=== PATIENT | male | born 1970 | race Hispanic/Latino ===

== ENCOUNTER 2021-12-22 23:55 | Emergency (ER) | payer BC, OTHER ==
[~2021-12-22] VITALS: Ht 172.7 cm; Wt 9.2 kg
[2021-12-22 23:57] VITALS: BP 145/69
[2021-12-23 00:36] LABS: EOSINOPHILS % (AUTO) 3.7 % (0.0-8.0); HEMATOCRIT 42.1 % (42-54); LYMPHOCYTES % (AUTO) 29.1 % (21.0-51.0); MEAN CORPUSCULAR HEMOGLOBIN 28.6 pg (27.0-33.0); MEAN CORPUSCULAR VOLUME 86.6 fL (79-99); MONOCYTES % (AUTO) 9.7 % (3.0-13.0); NEUTROPHILS % (AUTO) 55.6 % (40.0-77.0); PLATELET COUNT (AUTO) 260 K/uL (130-400); RED BLOOD CELL COUNT(AUTO) 4.86 MIL/uL (4.50-6.20); RED CELL DISTRIBUTION WIDTH 13.2 % (11.0-15.5); WHITE BLOOD COUNT (AUTO) 10.7 K/uL (4.8-10.8)
[2021-12-23 01:23] LABS: CREATININE 1.1 mg/dL (0.5-1.5)
[2021-12-23 01:28] LABS: ALBUMIN 2.9 g/dL (3.5-5.0); BILIRUBIN,TOTAL 0.2 mg/dL (0.2-1.0); TOTAL PROTEIN, SERUM 6.6 g/dL (6.0-8.3)
[2021-12-23] MEDS ORDERED: ESOM20CA60 PO (01:41)
== END 2021-12-23 02:00 | disposition home or self-care (01) ==
LOC: EDH 23:55
DX: K21.9 Gastro-esophageal reflux disease without esophagitis (principal); E11.9 Type 2 diabetes mellitus without complications
CPT/HCPCS: 36415; 71045; 80053; 84484; 85025

== ENCOUNTER 2022-05-02 20:18 | Emergency (ER) | payer OTHER, BC ==
[~2022-05-02] VITALS: Ht 172.7 cm; Wt 145.1 kg
[~2022-05-02 20:18] MED LIST: ESOM20CA60 PO
[2022-05-02] MEDS ORDERED: IOHEXOL 350 MG/ML 100ML INFUS..BTL IV ONE (21:25)
[2022-05-02] MEDS ORDERED: ONDANSETRON 4MG INJ IVP ONE (21:30)
[2022-05-02] MEDS ORDERED: MORPHINE 4 MG SYG IVP ONE (21:30)
[2022-05-02] MEDS ORDERED: 0.9%NACL 1000ML 1,000 ML IV ONE (21:30)
[2022-05-02 21:38] LABS: BASOPHILS % (AUTO) 0.6 % (0.0-5.0); EOSINOPHILS % (AUTO) 1.2 % (0.0-8.0); HEMATOCRIT 46.4 % (42-54); LYMPHOCYTES % (AUTO) 16.6 % (21.0-51.0); MEAN CORPUSCULAR HGB CONC 33.8 g/dL (32.0-36.0); MEAN CORPUSCULAR VOLUME 82.9 fL (79-99); NEUTROPHILS % (AUTO) 70.8 % (40.0-77.0); PLATELET COUNT (AUTO) 256 K/uL (130-400); RED CELL DISTRIBUTION WIDTH 12.8 % (11.0-15.5); WHITE BLOOD COUNT (AUTO) 12.2 K/uL (4.8-10.8)
[2022-05-02 21:41] LABS: APPEARANCE,URINE CLEAR (CLEAR); BILIRUBIN,URINE NEGATIVE (NEGATIVE); COLOR,URINE YELLOW (YELLOW); GLUCOSE, URINE (UA) >=1000 mg/dL (NEGATIVE); KETONES,URINE NEGATIVE (NEGATIVE); LEUKOCYTE ESTERASE ,URINE NEGATIVE (NEGATIVE); NITRATE,URINE NEGATIVE (NEGATIVE); OCCULT BLOOD,URINE NEGATIVE (NEGATIVE); PROTEIN,URINE NEGATIVE (NEGATIVE); UROBILINOGEN,URINE 0.2 mg/dL (0.2-1.0)
[2022-05-02 21:57] LABS: CREATININE 1.2 mg/dL (0.5-1.5); POTASSIUM 4.9 mmol/L (3.5-5.1)
[2022-05-02 21:58] LABS: BACTERIA,URINE Rare /HPF (None Seen); RBC,URINE 0-1 /HPF (0-1); WBC,URINE 0-1 /HPF (0-1)
[2022-05-02 21:59] LABS: MUCUS,URINE Few LPF (None Seen); SQUAMOUS EPITHELIAL CELL,UR Rare /HPF (0-2)
[2022-05-02 22:04] LABS: ALBUMIN 3.2 g/dL (3.5-5.0); TOTAL PROTEIN, SERUM 7.5 g/dL (6.0-8.3)
[2022-05-02 23:00] VITALS: BP 133/71
== END 2022-05-02 23:29 | disposition home or self-care (01) ==
LOC: EDH 20:18
DX: S20.212A Contusion of left front wall of thorax, initial encounter (principal); E11.9 Type 2 diabetes mellitus without complications; Z79.899 Other long term (current) drug therapy; V49.49XA Driver injured in collision with other motor vehicles in traffic accident, initial encounter; Y93.89 Activity, other specified; Y92.413 State road as the place of occurrence of the external cause; Y99.8 Other external cause status
CPT/HCPCS: 99285; 71260; 96374; 96361; 96375; 84484; 80053; 85025; 81001; 36415; 74177; 93005; J7030; J2405; J2270; Q9967

== ENCOUNTER 2023-09-11 18:41 | Emergency (ER) | payer BC, OTHER ==
[~2023-09-11] VITALS: Ht 172.7 cm; Wt 145.1 kg
[2023-09-11 19:41] LABS: RAPID GROUP A STREP negative (NEGATIVE)
[2023-09-11 19:53] LABS: INFLUENZA TYPE A Negative For Type A (NEGATIVE); INFLUENZA TYPE B Negative For Type B (NEGATIVE)
[2023-09-11 19:55] LABS: COVID19 (SARS ANTIGEN RAPID) PRESUMPTIVE NEGATIVE (NEGATIVE)
[2023-09-11 21:06] VITALS: BP 131/50; PULSE 84; RESP 14; O2SAT 97
[2023-09-11] MEDS ORDERED: BENZ-39 PO (21:07)
[2023-09-11] MEDS ORDERED: IBUP-2077 PO (21:13)
[2023-09-11] MEDS ORDERED: LORA-868 PO (21:13)
== END 2023-09-11 21:12 | disposition home or self-care (01) ==
LOC: EDH 18:41
DX: J06.9 Acute upper respiratory infection, unspecified (principal); E11.9 Type 2 diabetes mellitus without complications; Z20.822 Contact with and (suspected) exposure to COVID-19; Z79.899 Other long term (current) drug therapy
CPT/HCPCS: 87426; 87804; 87880

== ENCOUNTER 2024-08-06 08:59 | Emergency (ER) | payer BC ==
[~2024-08-06] VITALS: Ht 172.7 cm; Wt 142.9 kg
[~2024-08-06 08:59] MED LIST changes: +BENZ-39 PO; +IBUP-2077 PO; +LORA-868 PO
[2024-08-06 10:26] LABS: BASOPHILS # (AUTO) 0.09 K/uL (0.00-0.20); BASOPHILS % (AUTO) 0.8 % (0.0-5.0); EOSINOPHILS # (AUTO) 0.14 K/uL (0.00-0.70); EOSINOPHILS % (AUTO) 1.2 % (0.0-8.0); HEMATOCRIT 45.6 % (42-54); IMMATURE GRANULOCYTE ABSOLUTE 0.08 K/uL (0-1); LYMPHOCYTES # (AUTO) 2.2 K/uL (1.0-4.8); LYMPHOCYTES % (AUTO) 18.6 % (21.0-51.0); MEAN CORPUSCULAR HEMOGLOBIN 28.4 pg (27.0-33.0); MEAN CORPUSCULAR HGB CONC 32.9 g/dL (32.0-36.0); MEAN CORPUSCULAR VOLUME 86.2 fL (79-99); MONOCYTES # (AUTO) 0.9 K/uL (0.1-1.0); MONOCYTES % (AUTO) 7.2 % (3.0-13.0); NEUTROPHILS # (AUTO) 8.6 K/uL (1.8-7.7); NEUTROPHILS % (AUTO) 71.5 % (40.0-77.0); PLATELET COUNT (AUTO) 246 K/uL (130-400); RED BLOOD CELL COUNT(AUTO) 5.29 MIL/uL (4.50-6.20); RED CELL DISTRIBUTION WIDTH 12.5 % (11.0-15.5)
[2024-08-06 10:45] LABS: CREATININE 1.4 mg/dL (0.5-1.3); POTASSIUM 5.2 mmol/L (3.5-5.1)
--- NOTE | 2024-08-06 10:54 | ERN ---
General Chief Complaint: Lower Extremity Pain/Injury Stated Complaint: BLE WEAKNESS/SWELLING Time Seen by MD: 09:01 History of Present Illness Initial Comments 54-year-old male diabetic presents for bilateral lower leg pain and tingling. Goes from the tip of the toes up to about the knees bilaterally and AST full. No neurovascular injury or compromise. No fevers chills chest pain. No swelling. He reports it is a tingling and painful discomfort. He went to his primary provider and was referred to a labor conciliator but has not yet followed up. He takes Tylenol for pain. He takes insulin and no other medications. Allergies: Coded Allergies: No Known Drug Allergies (Unverified Allergy, Unknown, 12/22/21) Home Meds Active Scripts Ibuprofen (Ibuprofen 800 mg Tab) 800 Mg Tab, 800 MG PO Q6H PRN for PAIN, #30 TAB Prov:RAMAN QUINTEROS NP 09/11/23 Loratadine/Pseudoephedrine (Claritin-D 24 Hour Tablet) 10 Mg-240 Mg Tab.er.24h, 1 EACH PO DAILY, #15 TAB Prov:RAMAN QUINTEROS NP 09/11/23 Benzonatate (Tessalon Perles) 100 Mg Cap, 200 MG PO TIDP, #30 CAP Prov:RAMAN QUINTEROS NP 09/11/23 Esomeprazole Magnesium (Nexium 24Hr) 20 Mg Capsule.dr, 20 MG PO DAILY for 30 Days, #30 CAP 2 Refills Prov:GARY DUMONT MD 12/23/21 Past Medical History Past Medical History: Diabetes-Type II Past Surgical History: None Social History Social History: ETOH, Lives with family, Other Results Laboratory and Microbiology Lab and Micro Result Laboratory Tests Test 08/06/24 10:16 White Blood Count 12.0 K/uL (4.8-10.8) H Red Blood Count 5.29 MIL/uL (4.50-6.20) Hemoglobin 15.0 g/dL (14.0-18.0) Hematocrit 45.6 % (42-54) Mean Corpuscular Volume 86.2 fL (79-99) Mean Corpuscular Hemoglobin 28.4 pg (27.0-33.0) Mean Corpuscular Hemoglobin Concent 32.9 g/dL (32.0-36.0) Red Cell Distribution Width 12.5 % (11.0-15.5) Platelet Count 246 K/uL (130-400) Mean Platelet Volume 8.8 fL (7.5-10.5) Immature Granulocyte % (Auto) 0.7 % (0-1) Neutrophils (%) (Auto) 71.5 % (40.0-77.0) Lymphocytes (%) (Auto) 18.6 % (21.0-51.0) L Monocytes (%) (Auto) 7.2 % (3.0-13.0) Eosinophils (%) (Auto) 1.2 % (0.0-8.0) Basophils (%) (Auto) 0.8 % (0.0-5.0) Neutrophils # (Auto) 8.6 K/uL (1.8-7.7) H Lymphocytes # (Auto) 2.2 K/uL (1.0-4.8) Monocytes # (Auto) 0.9 K/uL (0.1-1.0) Eosinophils # (Auto) 0.14 K/uL (0.00-0.70) Basophils # (Auto) 0.09 K/uL (0.00-0.20) Absolute Immature Granulocyte (auto 0.08 K/uL (0-1) Nucleated Red Blood Cells 0.0 % (0.0-0.19) Sodium Level 130 mmol/L (136-145) L Potassium Level 5.2 mmol/L (3.5-5.1) H Chloride Level 95 mmol/L (101-111) L Carbon Dioxide Level 33 mmol/L (21-32) H Blood Urea Nitrogen 18 mg/dL (7-18) Creatinine 1.4 mg/dL (0.5-1.3) H Glomerular Filtration Rate Calc 60 mL/min (>90) Random Glucose 421 mg/dL (70-105) *H Total Calcium 9.0 mg/dL (8.5-10.1) MDM CC: Bilateral feet pain for the last two months Historian: Patient Comorbidities: Diabetes Limitations by social determinants of health: Uninsured Vital signs are stable Vital signs remained stable Patient is neurovascularly intact There is no signs of claudication or blood loss There is no signs of back discomfort. Low suspicion for neurovascularly disease. CBC is unremarkable Chemistry shows creatinine 1.4, sodium 130, chloride 95 potassium 5.2. The glucose is 421 Patient received 10 units of subcu insulin Repeat sugar improved Likely peripheral neuropathy. We will treat with prescription for gabapentin recommend PCP follow up. MDM: Differential diagnosis: Peripheral neuropathy, CAD, other Rationale: Tests considered and ordered secondary to shared decision making include: None Previous outside records reviewed: None Risk of complication and/or morbidity or mortality of patient management: None Medications-Per medication reconciliation Need for hospitalization: Patient does not meet criteria for hospitalization. Need for emergency major/minor surgery: No There are no social concerns with this patient. Prescription drug management Prescriptions will include symptomatic care Patient's prior external medical records from other ER visits were reviewed by me as indicated. Prior testing and results from previous visits were reviewed. Prior tests were taken into account with medical decision making and resource utilization, independent historian/historians were used to obtain complete medical history. I independently interpreted the test that were performed, results were reviewed by me and considered findings on radiology if ordered. Medical management and examination interpretation discussions were had by me with other qualified healthcare professionals as indicated for the patient's care. ED Course Orders Procedure Category Date Status Time Cbc With Differential LAB 08/06/24 Complete 10:10 Basic Metabolic Panel LAB 08/06/24 Complete 10:10 Insulin Regular, PHA 08/06/24 In Process Human 3ml (Humulin R 11:30 Current Medications Medications (Trade) Dose Ordered Sig/Nico Route PRN Reason Start Time Stop Time Status Last Admin Dose Admin Insulin Human Regular (humuLIN R 100 UNIT/ML 3ML) 10 unit ONCE ONCE SQ 08/06/24 11:30 08/06/24 11:31 Vital Signs Date Time Temp Pulse Resp B/P (MAP) Pulse Ox O2 Delivery O2 Flow Rate FiO2 08/06/24 09:03 97.9 79 16 136/69 96 Room Air* 0 21 08/06/24 09:00 97.9 80 16 136/69 95 Room Air 0 DX & DISP Disposition: Discharge Departure Impression: Primary Impression: Peripheral neuropathic pain Additional Impression: Hyperglycemia Condition: Stable Scripts Gabapentin (Gabapentin) 100 Mg Capsule 1 CAP PO TID for 30 Days, #90 CAP 0 Refills Prov: CLEMENTE TAMAYO DO 08/06/24 Additional Instructions: Your symptoms are consistent with peripheral neuropathy. This is likely related to your diabetes. Your glucose was 421 here in the ER. It is important to control your glucose. Please continue with her insulin. Please follow up with the primary doctor. Your other lab work (CBC, BMP) does show mild decrease in your kidney function. This may also be related to your diabetes. Please follow up with the primary doctor regarding this. I have prescribed gabapentin, which is a medication that may help with your symptoms. You can take this 3 times per day. You can also take [id number] Tylenol 650 mg 4 times per day. Please follow up with her primary doctor. Referrals: SHAWNA MORALES MD (PCP) CLEMENTE TAMAYO DO Aug 06, 2024 10:54
[2024-08-06] MEDS: INSULIN humuLIN R 100 UNIT/ML 3ML SQ ONE (11:25)
[2024-08-06] MEDS ORDERED: GABA-529 PO (11:26)
[2024-08-06 12:03] VITALS: BP 149/83; PULSE 83; RESP 20; TEMP 98.2; O2SAT 96
== END 2024-08-06 12:11 | disposition home or self-care (01) ==
LOC: EDH 08:59
DX: E11.42 Type 2 diabetes mellitus with diabetic polyneuropathy (principal); E11.65 Type 2 diabetes mellitus with hyperglycemia; Z79.899 Other long term (current) drug therapy
CPT/HCPCS: 99284; 80048; 85025; 82948; 36415; 96372; J1815

== ENCOUNTER 2024-08-16 23:39 | Emergency (ER) | payer BC ==
[~2024-08-16] VITALS: Ht 172.7 cm; Wt 140.2 kg
[~2024-08-16 23:39] MED LIST changes: +GABA-529 PO
[2024-08-17] MEDS ORDERED: SULF1TAB42 PO (00:47)
--- NOTE | 2024-08-17 00:48 | ERN ---
ED Note History of Present Illness Stated Complaint: C/O PAIN TO LEFT LOWER LEG X 2 WKS Chief Complaint: Insect Bite Time Seen by MD: 00:15 Time Seen by Midlevel: 00:15 Dictation: The patient is a 54-year-old male with a history of diabetes who presents to the emergency department with complaints of two left lower extremity wounds onset two weeks ago. Patient reports he thinks he was bitten by an insect but is unsure. Denies any fevers. Allergies: Coded Allergies: No Known Drug Allergies (Unverified Allergy, Unknown, 12/22/21) Home Meds Active Scripts Gabapentin (Gabapentin) 100 Mg Capsule, 1 CAP PO TID for 30 Days, #90 CAP 0 Refills Prov:CLEMENTE TAMAYO DO 08/06/24 Ibuprofen (Ibuprofen 800 mg Tab) 800 Mg Tab, 800 MG PO Q6H PRN for PAIN, #30 TAB Prov:RAMAN QUINTEROS NP 09/11/23 Loratadine/Pseudoephedrine (Claritin-D 24 Hour Tablet) 10 Mg-240 Mg Tab.er.24h, 1 EACH PO DAILY, #15 TAB Prov:RAMAN QUINTEROS NP 09/11/23 Benzonatate (Tessalon Perles) 100 Mg Cap, 200 MG PO TIDP, #30 CAP Prov:RAMAN QUINTEROS NP 09/11/23 Esomeprazole Magnesium (Nexium 24Hr) 20 Mg Capsule.dr, 20 MG PO DAILY for 30 Days, #30 CAP 2 Refills Prov:GARY DUMONT MD 12/23/21 Past Medical History Past Medical History: Diabetes-Type II Surgical History: Unknown Social History: ETOH, Lives with family, Other RN Note Reviewed/Agreed w/PFSH: Yes Review of System Dictation Constitutional: Negative for fever,chills, and weight loss Eyes: Negative for injury, pain,redness, and discharge ENT: Negative for injury,pain or swelling Cardiovascular: Negative for chest pain, palpitations, and edema Respiratory: Negative for shortness of breath, cough, and wheezing, Abdomen/GI: Negative for abdominal pain, nausea, vomiting, diarrhea, and constipation Back: Negative for injury and pain : Negative for injury, bleeding and discharge MS/Extremity: Negative for injury and deformity Skin: positive for left lower leg wound Neuro: Negative for headache, weakness, numbness, tingling, and seizure Psych: Negative for suicide ideation, homicidal ideation, and hallucinations Initial Vital Sign VS Vital Signs Date Time Temp Pulse Resp B/P (MAP) Pulse Ox O2 Delivery O2 Flow Rate FiO2 08/16/24 23:42 98.4 74 20 162/81 94 Room Air Physical Exam Dictation Vital Signs reviewed General Appearance: Alert, oriented x 3, no acute distress, well developed, nourished. Head and Face: non-traumatic. Eyes: PERRL, pink conjunctivas, eyelid no trauma, anterior chamber with arcus senilis. Ears: Pinnas intact and no signs of trauma or erythema ear canals clear and no discharge TM no erythema Nose: No discharge, no bleeding. Oropharynx: Mouth normal, tongue pink. pharynx clear,no erythema, tonsils no exudates, no abscesses noted, mucous membrane moist Neck: Supple, non-tender, no thyromegaly, no masses, no JVD, no bruits Breast:Deferred Chest:No tenderness, no crepitus, no paradoxical movement, no retractions Lungs:Clear, well-ventilated, symmetric, no rales, no wheezing, no rhonchi, no stridor, good breath sounds bilaterally Heart: Regular rate, regular rhythm, no murmur, no gallops Vascular: no peripheral edema, Abdomen: Soft, positive bowel sounds, nondistended, no guarding, nontender, no rebound, no masses no hepatomegaly, no splenomegaly, no Cade's sign, no hernias. Rectal: Deferred Genital: Deferred Neurological: Normal speech, motor function intact, sensory function intact Musculoskeletal: Neck nontender, full range of motion, back nontender, full range of motion, Extremities: nontender, full range of motion Skin: Color pink, dry, no turgor, no rash, no lacerations,, no contusions. Two small less than 0.5 cm abrasions noted to anterior and posterior lower leg, no drainage, no erythema, small scabs Lymphatic: Deferred Results (Laboratory/Radiology) Labs Reviewed?: Yes ED Course ED Course Vital Signs Date Time Temp Pulse Resp B/P (MAP) Pulse Ox O2 Delivery O2 Flow Rate FiO2 08/16/24 23:42 98.4 74 20 162/81 94 Room Air Medical Decision Making MDM The patient is a 54-year-old male with a history of diabetes who presents to the emergency department with complaints of two left lower extremity wounds onset two weeks ago. Patient reports he thinks he was bitten by an insect but is unsure. Denies any fevers. Two small less than 0.5 cm wounds noted to area, no drainage Patient will be treated with antibiotics and follow up with primary doctor. Differential diagnosis: Cellulitis, abrasion, abscess, insect wound Need for hospitalization: Patient does not meet criteria for hospitalization. There are no social concerns with this patient. DX & DISP Disposition: Discharge Departure Impression: Primary Impression: Infected insect bite Condition: Stable Scripts Sulfamethoxazole/Trimethoprim (Bactrim Ds Tablet) 800 Mg-160 Mg Tablet 1 TAB PO BID for 7 Days, #14 TAB 0 Refills Prov: LISSY ESPARZA 08/17/24 Additional Instructions: FOLLOW-UP WITH PRIMARY CARE PROVIDER IN 1 TO 2 DAYS. TAKE MEDICATIONS DIRECTED HERE IN THE EMERGENCY ROOM. OKAY TO CONTINUE HOME MEDICATIONS UNLESS OTHERWISE DISCUSSED DURING YOUR VISIT IN THE EMERGENCY ROOM TODAY. RETURN TO YOUR NEAREST EMERGENCY ROOM IF SYMPTOMS WORSEN OR IF THERE IS NO IMPROVEMENT. CALL 911 IF YOU NEED IMMEDIATE ASSISTANCE. TAKE TYLENOL OR MOTRIN [id number] NTER NEEDED AND IF NO CONTRAINDICATIONS ARE PRESENT. INCREASE ORAL HYDRATION. A WOUND CULTURE OR URINE CULTURE WAS ORDERED HERE IN THE EMERGENCY ROOM DEPARTMENT PLEASE FOLLOW-UP WITH PRIMARY CARE PROVIDER AND ADVISE THEM TO GET REPEAT PORTS FROM OUR FACILITY. IF YOU HAD ANY EDISON WRAP/SPLINTS THAT WERE APPLIED HERE, PLEASE DO NOT REMOVE THEM UNTIL YOU SEE YOUR PRIMARY CARE OR [facility]. Referrals: SHAWNA MORALES MD (PCP) Time of Disposition: 00:44 I have reviewed the case, and I agree with, Diagnosis and Plan LISSY ESPARZA Aug 17, 2024 00:48
[2024-08-17 01:02] VITALS: BP 152/84; PULSE 76; RESP 16; TEMP 98.2; O2SAT 98
== END 2024-08-17 01:09 | disposition home or self-care (01) ==
LOC: EDH 23:39
DX: S80.862A Insect bite (nonvenomous), left lower leg, initial encounter (principal); L08.9 Local infection of the skin and subcutaneous tissue, unspecified; E11.9 Type 2 diabetes mellitus without complications; Z79.899 Other long term (current) drug therapy; W57.XXXA Bitten or stung by nonvenomous insect and other nonvenomous arthropods, initial encounter; Y93.89 Activity, other specified; Y92.89 Other specified places as the place of occurrence of the external cause; Y99.8 Other external cause status
CPT/HCPCS: 99283

== ENCOUNTER 2024-10-10 03:32 | Inpatient (IN) | payer BC ==
[~2024-10-10] VITALS: Ht 172.7 cm; Wt 146.5 kg
[~2024-10-10 03:32] MED LIST changes: +SULF1TAB42 PO
[2024-10-10] MEDS: HYDROcodone/APAP 5/325 1 TAB TABLET PO ONE (04:43)
[2024-10-10] MEDS: ketOROlac 15MG/ML VIAL (15MG/ML) IV ONE (04:43)
[2024-10-10 05:14] LABS: BASOPHILS % (AUTO) 0.7 % (0.0-5.0); EOSINOPHILS # (AUTO) 0.31 K/uL (0.00-0.70); EOSINOPHILS % (AUTO) 2.1 % (0.0-8.0); HEMATOCRIT 42.4 % (42-54); IMMATURE GRANULOCYTE ABSOLUTE 0.19 K/uL (0-1); LYMPHOCYTES # (AUTO) 2.7 K/uL (1.0-4.8); LYMPHOCYTES % (AUTO) 17.8 % (21.0-51.0); MEAN CORPUSCULAR HEMOGLOBIN 28.3 pg (27.0-33.0); MEAN CORPUSCULAR VOLUME 83.3 fL (79-99); MONOCYTES # (AUTO) 1.2 K/uL (0.1-1.0); MONOCYTES % (AUTO) 7.6 % (3.0-13.0); NEUTROPHILS # (AUTO) 10.7 K/uL (1.8-7.7); NEUTROPHILS % (AUTO) 70.5 % (40.0-77.0); PLATELET COUNT (AUTO) 267 K/uL (130-400); RED BLOOD CELL COUNT(AUTO) 5.09 MIL/uL (4.50-6.20); RED CELL DISTRIBUTION WIDTH 12.6 % (11.0-15.5); WHITE BLOOD COUNT (AUTO) 15.1 K/uL (4.8-10.8)
[2024-10-10 05:21] LABS: CREATININE 1.7 mg/dL (0.5-1.3); POTASSIUM 4.7 mmol/L (3.5-5.1)
[2024-10-10 05:37] LABS: B-TYPE NATRIURETIC PEPTIDE 6 pg/mL (0-100)
--- NOTE | 2024-10-10 05:59 | ERN ---
General Chief Complaint: Lower Extremity Pain/Injury Stated Complaint: C/O PAIN WITH SWELLING AND BLISTERS TO LEGS Time Seen by MD: 03:34 History of Present Illness Initial Comments 54-year-old male, history of diabetes hypertension obesity, presents for bilateral lower leg discomfort. He reports increased swelling and pain for almost a month now. More so in the left than the right. There is some areas of seeping ulceration with erythema. He reports subjective fevers. Allergies: Coded Allergies: No Known Drug Allergies (Unverified Allergy, Unknown, 12/22/21) Home Meds Active Scripts Sulfamethoxazole/Trimethoprim (Bactrim Ds Tablet) 800 Mg-160 Mg Tablet, 1 TAB PO BID for 7 Days, #14 TAB 0 Refills Prov:LISSY ESPARZA 08/17/24 Gabapentin (Gabapentin) 100 Mg Capsule, 1 CAP PO TID for 30 Days, #90 CAP 0 Refills Prov:CLEMENTE TAMAYO DO 08/06/24 Ibuprofen (Ibuprofen 800 mg Tab) 800 Mg Tab, 800 MG PO Q6H PRN for PAIN, #30 TAB Prov:RAMAN QUINTEROS NP 09/11/23 Loratadine/Pseudoephedrine (Claritin-D 24 Hour Tablet) 10 Mg-240 Mg Tab.er.24h, 1 EACH PO DAILY, #15 TAB Prov:RAMAN QUINTEROS NP 09/11/23 Benzonatate (Tessalon Perles) 100 Mg Cap, 200 MG PO TIDP, #30 CAP Prov:RAMAN QUINTEROS SALES ACCOUNT EXECUTIVE 09/11/23 Esomeprazole Magnesium (Nexium 24Hr) 20 Mg Capsule.dr, 20 MG PO DAILY for 30 Days, #30 CAP 2 Refills Prov:GARY DUMONT MD 12/23/21 Past Medical History Past Medical History: Diabetes-Type II, Hypertension Past Surgical History: Other Social History Social History: ETOH, Lives with family, Other ROS Dictation CONSTITUTIONAL: No chills, no fever, no weakness, no diaphoresis, no malaise. HEAD/FACE: No signs of trauma. EENT: No eye pain, no blurred vision, no tearing, no double vision, no ear pain, no ear discharge, no nose pain, no nasal congestion, no throat pain, no throat swelling, no mouth pain. RESPIRATORY: No cough, no orthopnea, no SOB, no stridor, no wheezing. CARDIOVASCULAR: No chest pain, no edema, no palpitations, no syncope. GASTROINTESTINAL/ABDOMINAL: No abdominal pain, no constipation, no diarrhea, no nausea, no vomiting. GENITOURINARY: No abnormal discharge, no dysuria, no frequent urination, no hematuria. No complaints of pain in the genitals. MUSCULOSKELETAL: Bilateral lower leg pain INTEGUMENTARY: No change in color, no change in hair/nails, no dryness, no lesion, no lumps, no rash. NEUROLOGICAL/PSYCH: No anxiety, not depressed, no emotional problem, no headache, no numbness, no pre-existing deficit, no history of seizures, no tremors, no weakness. HEMATOLOGIC/LYMPHATIC: Not anemic, no history of blood clots, no apparent bleeding, no bruising, glands not swollen. All Systems Negative, Except as Noted. Physical Exam Physical Exam Dictation VITAL SIGNS: Reviewed. GENERAL APPEARANCE: Alert, oriented x3, no acute distress, obese. HEAD AND FACE: Non-traumatic. EYES: PERRL, pink conjunctivas, eyelid no trauma, anterior chamber clear. EARS: Pinnas intact and no signs of trauma or erythema. Ear canals clear and no discharge. TMs no erythema. NOSE: No discharge, no bleeding. OROPHARYNX: Mouth normal, teeth no caries, tongue pink. Pharynx clear, no erythema. Tonsils no exudates, no abscesses noted. Mucous membrane moist. NECK: Supple, non-tender, no thyromegaly, no masses, no JVD, no bruits. BREAST: Deferred. CHEST: No tenderness, no crepitus, no paradoxical movement, no retractions. LUNGS: Clear, well-ventilated, symmetric, no rales, no wheezing, no rhonchi, no stridor, good breath sounds bilaterally. HEART: Regular rate, regular rhythm, no murmur, no gallops. VASCULAR: No peripheral edema. ABDOMEN: Soft, positive bowel sounds, nondistended, no guarding, nontender, no rebound, no masses no hepatomegaly, no splenomegaly, no Cade's sign, no hernias. RECTAL: Deferred. GENITAL: Deferred. NEUROLOGICAL: Normal speech, gross motor function intact, gross sensory function intact. MUSCULOSKELETAL: Areas of ulceration in the erythema to bilateral shins EXTREMITIES: Nontender, full range of motion. SKIN: Color pink, dry, no turgor, no rash, no lacerations, no abrasions, no contusions. LYMPHATICS: Deferred. Results Laboratory and Microbiology Lab and Micro Result Laboratory Tests Test 10/10/24 05:06 White Blood Count 15.1 K/uL (4.8-10.8) H Red Blood Count 5.09 MIL/uL (4.50-6.20) Hemoglobin 14.4 g/dL (14.0-18.0) Hematocrit 42.4 % (42-54) Mean Corpuscular Volume 83.3 fL (79-99) Mean Corpuscular Hemoglobin 28.3 pg (27.0-33.0) Mean Corpuscular Hemoglobin Concent 34.0 g/dL (32.0-36.0) Red Cell Distribution Width 12.6 % (11.0-15.5) Platelet Count 267 K/uL (130-400) Mean Platelet Volume 8.7 fL (7.5-10.5) Immature Granulocyte % (Auto) 1.3 % (0-1) H Neutrophils (%) (Auto) 70.5 % (40.0-77.0) Lymphocytes (%) (Auto) 17.8 % (21.0-51.0) L Monocytes (%) (Auto) 7.6 % (3.0-13.0) Eosinophils (%) (Auto) 2.1 % (0.0-8.0) Basophils (%) (Auto) 0.7 % (0.0-5.0) Neutrophils # (Auto) 10.7 K/uL (1.8-7.7) H Lymphocytes # (Auto) 2.7 K/uL (1.0-4.8) Monocytes # (Auto) 1.2 K/uL (0.1-1.0) H Eosinophils # (Auto) 0.31 K/uL (0.00-0.70) Basophils # (Auto) 0.10 K/uL (0.00-0.20) Absolute Immature Granulocyte (auto 0.19 K/uL (0-1) Nucleated Red Blood Cells 0.0 % (0.0-0.19) Sodium Level 133 mmol/L (136-145) L Potassium Level 4.7 mmol/L (3.5-5.1) Chloride Level 97 mmol/L (101-111) L Carbon Dioxide Level 29 mmol/L (21-32) Blood Urea Nitrogen 28 mg/dL (7-18) H Creatinine 1.7 mg/dL (0.5-1.3) H Glomerular Filtration Rate Calc 48 mL/min (>90) Random Glucose 364 mg/dL (70-105) H Total Calcium 8.7 mg/dL (8.5-10.1) Total Creatine Kinase 213 U/L (21-232) Troponin I High Sensitivity 5.6 ng/L (4-75) C-Reactive Protein, Quantitative 21.80 mg/L (0.5-3.0) H B-Type Natriuretic Peptide 6 pg/mL (0-100) MDM CC: Bilateral leg pain, more on the left than right erythema, subjective fever Historian: Patient Comorbidities: Morbid obesity, diabetes, hypertension, CKD, peripheral neuropathy Differential diagnosis: Cellulitis, CHF, kidney disease, liver disease, sepsis, other. Vital signs: Stable. Labs so leukocytosis [id number] with a left shift. No bands. The metabolic panel is unremarkable. Creatinine in his at baseline. Glucose 364. The CRP is elevated. BNP normal troponin normal. CXR (per might have been interpretation) shows no acute abnormalities. Patient likely a cellulitis. Has an elevated white count to 15, elevated CRP. There is some surrounding erythema and swelling to the leg. I considered admission for this patient versus outpatient treatment, patient prefers admission at this time. We will admit. Started on vancomycin And Zosyn. Hospitalist consulted. ED Course Orders Procedure Category Date Status Time Cardiac Panel LAB 10/10/24 Complete 04:37 Cbc With Differential LAB 10/10/24 Complete 04:37 Basic Metabolic Panel LAB 10/10/24 Complete 04:37 B-Type Natriuretic LAB 10/10/24 Complete Peptide 04:37 Urinalysis Profile LAB 10/10/24 Logged 04:37 Crp Quantitative LAB 10/10/24 Complete 04:37 Chest 1vw RAD 10/10/24 Taken 04:37 Ketorolac PHA 10/10/24 Complete Tromethamine 15mg/Ml 05:00 Hydrocodone/Apap PHA 10/10/24 Complete 5/325 ([place] 5/325mg) 05:00 Current Medications Medications (Trade) Dose Ordered Sig/Nico Route PRN Reason Start Time Stop Time Status Last Admin Dose Admin Acetaminophen/ Hydrocodone Bitart (NORco 5/325MG) tab ONCE ONCE PO 10/10/24 05:00 10/10/24 05:01 DC 10/10/24 04:43 Ketorolac Tromethamine (toRADol) 15 mg ONCE ONCE IV 10/10/24 05:00 10/10/24 05:01 DC 10/10/24 04:43 Vital Signs Date Time Temp Pulse Resp B/P (MAP) Pulse Ox O2 Delivery O2 Flow Rate FiO2 10/10/24 03:33 98.4 82 18 150/84 95 Room Air DX & DISP Disposition: Inpatient Departure Impression: Primary Impression: Lower extremity cellulitis Additional Impressions: Hyperglycemia, CKD (chronic kidney disease) Condition: Stable Referrals: SHAWNA MORALES MD (PCP) CLEMENTE TAMAYO DO Oct 10, 2024 05:59
[2024-10-10] MEDS ORDERED: VANCOMYCIN KIT 1 GM/250 ML IV.KIT IV SCH (06:00)
[2024-10-10] MEDS ORDERED: PoTASSium chl 10% ELIXIR 20MEQ 20 MEQ/15 ML UDCUP PO PRN (06:30)
[2024-10-10] MEDS ORDERED: VANCOMYCIN PROTOCOL PER PHARMACY IV SCH (06:30)
[2024-10-10] MEDS ORDERED: PoTASSium chloRIDE 20MEQ ER 20 MEQ ERTAB PO PRN (06:30)
[2024-10-10] MEDS ORDERED: RENAL DOSE IV PRN (06:30)
[2024-10-10] MEDS ORDERED: MAGNESIUM 2GM PREMIX 50ML 50 ML IV PRN (06:30)
[2024-10-10] MEDS ORDERED: hydrALAZine 20MG/ML VIAL IV PRN (06:30)
[2024-10-10] MEDS ORDERED: PoTASSium chloRIDE 20MEQ/100ML 100 ML IV PRN (06:30)
[2024-10-10] MEDS: ZOSYN 3.375GM +NS 50ML IV SCH (06:31)
--- NOTE | 2024-10-10 06:37 | HP ---
[facility] HISTORY AND PHYSICAL Date of Service: Oct 10, 2024 Time of Service: 06:19 HISTORY OF PRESENT ILLNESS: [ ] admission date: 10/10/24 PCP: Ada Graves chief complaint: bilateral lower ext pain, redness, subjective Fevers This is a 54-year-old with a significant medical history of diabetes, hypertension and morbid obesity presents in ER with chief complaints of lower extremity pain and open nonhealing ulcers. Onset: ulcers for one month; report was seen in ED a month ago and was sent with oral antibiotics severity severe, aggravating factors: Pain aggravated by standing alleviating factors: None Associated symptoms: subjective Fever and Chills. patient recently went to [facility] with his PCP and was prescribed oral antibiotics he reports ulcers getting worse and decided to come to ED for further evaluation and treatment patient seen in ED: left leg with open wound oozing more redness then the right +1 edema to lower ext. The patient denies chest pain or SOB. REVIEW OF SYSTEMS CONSTITUTIONAL: Denies fevers, chills, or night sweats. No unintentional weight loss reported. NEUROLOGICAL: Denies headache, amaurosis fugax, motor weakness, sensory deficit, vertigo/spinning sensation, gait abnormalities, or tremors. ENT: No hearing loss, otalgia, otorrhea, rhinitis, rhinorrhea, hoarseness, or sore throat. CARDIOVASCULAR: Denies any exertional angina, dyspnea on exertion, orthopnea, paroxysmal nocturnal dyspnea, palpitations, life-threatening arrhythmias, claudication. PULMONARY: Denies any shortness of breath, cough, phlegm/sputum, hemoptysis, pleuritic chest pain. SLEEP: Denies morning headaches, daytime somnolence or napping. Denies difficulty falling asleep, staying asleep, waking from sleep. Denies knowledge of snoring. GASTROINTESTINAL: Denies any type of dysphagia to either liquids or solids. Denies nausea, vomiting, pyrosis, early satiety, abdominal pain, diarrhea, constipation, or changes in stool consistency or caliber. Denies coffee-ground emesis, hematemesis, hematochezia, or melanotic stools. GENITOURINARY: Denies frequency, urgency, nocturia, hematuria or incontinence (Storage/Irritative symptoms.) Low urinary stream, straining to void, urinary intermittency or hesitancy, splitting of the voiding stream, terminal dribbling. ENDOCRINOLOGIC: Denies polyuria, polydipsia, polyphagia or heat/cold intolerances. HEMATOLOGIC: Denies thrombophilia/previous clots, or coagulopathy/bleeding disorders. ONCOLOGIC: Denies personal history of malignancy. DERMATOLOGIC: Denies rashes or pruritus. PSYCHIATRIC: Denies any suicidal or homicidal ideation. Denies hallucinations. PAST MEDICAL HISTORY: [ ] refer to HPI PAST SURGICAL HISTORY: [ ] None PAST SOCIAL HISTORY: [ ] denies smoking tobacco products and ETOH use FAMILY HISTORY: [ ] DM , HTN Coded Allergies: No Known Drug Allergies (Unverified Allergy, Unknown, 12/22/21) PHYSICAL EXAM GENERAL APPEARANCE: The patient is awake, alert, and oriented, in no acute cardiopulmonary distress. NEUROLOGICAL: Cranial nerves II-XII grossly intact. Motor is 5/5 in bilateral upper and lower extremities proximal to distal. No sensory deficits. HEENT: Face is symmetric. Pupils are equal and reactive. Extraocular movements are intact. NECK: Supple. No JVD. No thyromegaly. No submental, submandibular, pre- /postauricular, occipital or supraclavicular lymphadenopathy. CHEST: Normal chest expansion. No Telemetry. LUNGS: Absence of any rales, rhonchi or any wheezing. CARDIOVASCULAR: Regular. S1 and S2 normal. No appreciable rubs, murmurs or gallops. ABDOMEN: Soft, nontender, and nondistended. There is no rebound, voluntary guarding, or rigidity. : Deferred. No Sullivan. EXTREMITIES: Non-edematous and not cyanotic. No clubbing. Good capillary refill. SKIN: several wound to left leg: oozing. +1 edema bilateral lower ext. Vital Sign (Last 24 Hours) 10/10/24 03:33 Temp 98.4 Pulse 82 Resp 18 B/P (MAP) 150/84 Pulse Ox 95 O2 Delivery Room Air LABS: Laboratory: Test 10/10/24 05:06 Range/Units White Blood Count 15.1 H 4.8-10.8 K/uL Red Blood Count 5.09 4.50-6.20 MIL/uL Hemoglobin 14.4 14.0-18.0 g/dL Hematocrit 42.4 42-54 % Mean Corpuscular Volume 83.3 79-99 fL Mean Corpuscular Hemoglobin 28.3 27.0-33.0 pg Mean Corpuscular Hemoglobin Concent 34.0 32.0-36.0 g/dL Red Cell Distribution Width 12.6 11.0-15.5 % Platelet Count 267 130-400 K/uL Mean Platelet Volume 8.7 7.5-10.5 fL Immature Granulocyte % (Auto) 1.3 H 0-1 % Neutrophils (%) (Auto) 70.5 40.0-77.0 % Lymphocytes (%) (Auto) 17.8 L 21.0-51.0 % Monocytes (%) (Auto) 7.6 3.0-13.0 % Eosinophils (%) (Auto) 2.1 0.0-8.0 % Basophils (%) (Auto) 0.7 0.0-5.0 % Neutrophils # (Auto) 10.7 H 1.8-7.7 K/uL Lymphocytes # (Auto) 2.7 1.0-4.8 K/uL Monocytes # (Auto) 1.2 H 0.1-1.0 K/uL Eosinophils # (Auto) 0.31 0.00-0.70 K/uL Basophils # (Auto) 0.10 0.00-0.20 K/uL Absolute Immature Granulocyte (auto 0.19 0-1 K/uL Nucleated Red Blood Cells 0.0 0.0-0.19 % Sodium Level 133 L 136-145 mmol/L Potassium Level 4.7 3.5-5.1 mmol/L Chloride Level 97 L 101-111 mmol/L Carbon Dioxide Level 29 21-32 mmol/L Blood Urea Nitrogen 28 H 7-18 mg/dL Creatinine 1.7 H 0.5-1.3 mg/dL Glomerular Filtration Rate Calc 48 >90 mL/min Random Glucose 364 H 70-105 mg/dL Total Calcium 8.7 8.5-10.1 mg/dL Total Creatine Kinase 213 21-232 U/L Troponin I High Sensitivity 5.6 4-75 ng/L C-Reactive Protein, Quantitative 21.80 H 0.5-3.0 mg/L B-Type Natriuretic Peptide 6 0-100 pg/mL Current Medications Medications (Trade) Dose Ordered Sig/Nico Route PRN Reason Start Time Stop Time Status Last Admin Dose Admin Piperacillin Sod/ Tazobactam Sod (Zosyn 3.375gm+NS 50ml) 3.375 gm Q8H IV 10/10/24 06:00 10/20/24 05:59 Vancomycin HCl (Vancomycin 1g/ 250ml Kit) 1 gm Q12H IV 10/10/24 06:00 10/20/24 05:59 DIAGNOSTICS / RADIOLOGY: [ ] ASSESSMENT: Sirs without organ malfunction POA bilateral lower ext. cellulitis POA failed outpatient treatment: POA intractable pain bilateral lower ext. POA nonhealing DM ulcer to left lower ext infected POA Suspecting Venous insufficiency POA JARED ATN POA Uncontrolled DM POA Morbid obesity POA noncompliance POA PLAN: [ ] admit: Medical surgical floor Abt's: renal dose pharmacy to dose: Vancomycin and Zosyn IV Test: Blood cultures: in process will follow up; wound cultures left leg; Venous/arterial Doppler to bilateral lower ext. IVF's: NS at 75 ml/hr Consultants: ID; contracting support specialist Pain management: [place] 5/325 mg one tab q4 hr PRN DM: Ac.hs monitoring with SSRI coverage HTN: Norvasc 5 mg po daily Leg elevation at all time Risk factors modification: weight management diet modified Labs: A1c, cbc, cmp and Mag+ Avoid NSAIDS strict I/O, PRN: MEDICATIONS Tylenol 650 mg po every 4 hrs for fever zofran 4 mg IV every 6 hrs for n/v Hydralazine 5 mg IV every 4 hrs systolic pressure > 160 Supportive measures: DVT ppx, GI ppx replace electrolytes as needed basis. all questions answered time spent: > 35 min Supervising MD: Dr. Godoy c/d [facility] 1. Which of the following were discussed? Hospice Care - Yes / No Therapeutic options - Yes / No Advance Directives - Yes / No Other discussions - 2. Discussed with who? 3. Voluntary nature of this service was explained to the patient? Yes / No 4. Amount of time spent - 5. Reviewed by Physician? (if this service was performed by NPP) Yes / No ATTESTATION BY PHYSICIAN I have seen and examined the patient. I reviewed the documentation, medical decision making, and treatment plan as noted by the mid-level provider above. I agree with the findings and plan of care. MILLIE GODOY MD, ELIZABETH NP Oct 10, 2024 06:37
[2024-10-10] MEDS ORDERED: VANCOMYCIN 1.75 GM/250 ML BAG 250 ML IV SCH (07:00)
[2024-10-10] MEDS: 0.9%NACL 1000ML 1,000 ML IV SCH (07:30)
[2024-10-10] MEDS: INSULIN humuLIN R 100 UNIT/ML 3ML SQ SCH (07:48)
[2024-10-10] MEDS: VANCOMYCIN 2GM/500 ML BAG 500 ML IV ONE (07:52)
[2024-10-10] MEDS: FAMOTIDINE 20MG TAB PO SCH (07:53)
[2024-10-10] MEDS: amLODIPine 5 MG TAB PO SCH (07:58)
--- NOTE | 2024-10-10 08:20 | HMCIMG ---
ULTRASOUND VENOUS DOPPLER, BILATERAL LOWER EXTREMITIES INDICATION: Bilateral lower extremity pain and swelling TECHNIQUE: Routine grayscale and color Doppler ultrasound of the bilateral lower extremity veins performed. COMPARISON: No priors. FINDINGS: The demonstrated veins of the bilateral lower extremity including the common femoral vein, femoral vein, and popliteal vein are associated with normal compressibility, augmentation, and flow. Normal respiratory variation was identified. No evidence for echogenic intraluminal thrombus formation. IMPRESSION: No sonographic evidence for deep venous thrombosis within the bilateral lower extremity veins.
--- NOTE | 2024-10-10 08:22 | HMCIMG ---
PORTABLE CHEST RADIOGRAPH INDICATION: swelling COMPARISON: None FINDINGS: Heart size is normal. The pulmonary vascularity and nicole appear normal. No abnormal pulmonary parenchymal opacity or consolidation identified. No significant pleural effusion noted. No pneumothorax detected. IMPRESSION: No radiographic evidence for any acute cardiopulmonary process.
[2024-10-10 08:44] LABS: APPEARANCE,URINE CLEAR (CLEAR); BILIRUBIN,URINE NEGATIVE (NEGATIVE); COLOR,URINE LIGHT-YELLOW (YELLOW); GLUCOSE, URINE (UA) >=1000 mg/dL (NEGATIVE); KETONES,URINE NEGATIVE (NEGATIVE); LEUKOCYTE ESTERASE ,URINE NEGATIVE Leu/uL (NEGATIVE); NITRATE,URINE NEGATIVE (NEGATIVE); OCCULT BLOOD,URINE LARGE (NEGATIVE); PH,URINE 5.5 (5.0-8.0); PROTEIN,URINE 100 mg/dL (NEGATIVE); UROBILINOGEN,URINE 0.2 mg/dL (0.2-1.0)
[2024-10-10 08:45] LABS: ADD UA MICROSCOPIC YES
[2024-10-10 09:00] LABS: RBC,URINE 51-100 /HPF (0-1); SQUAMOUS EPITHELIAL CELL,UR RARE /HPF (0-2); YEAST,URINE BUDDING RARE /HPF (None Seen)
[2024-10-10] MEDS: HEParin 5,000 UNIT VIAL SQ SCH (11:48)
[2024-10-10 12:00] VITALS: BP 128/75; PULSE 69; RESP 18; TEMP 97.4
[2024-10-10 16:00] VITALS: BP 130/77; PULSE 73; RESP 19; TEMP 98.7
--- NOTE | 2024-10-10 17:36 | NUR ---
HAD NOTIFIED DR LLOYD OF CONSULT EARLIER TODAY .. AT THIS TIME CLEANED ULCERS WITH NS , PAT DRIED AND APPLIED DRESSINGS UNTIL FURTHER ORDERS FROM WOUND CARE MD
[2024-10-10] MEDS: HYDROcodone/APAP 5/325 1 TAB TABLET PO PRN (18:42)
[2024-10-10 20:32] VITALS: BP 115/76; PULSE 73; RESP 20; TEMP 98
--- NOTE | 2024-10-10 21:14 | HMCIMG ---
US ARTERIAL BILAT LOW EXT DUPL HISTORY: No additional history given. COMPARISON: None TECHNIQUE: Bilateral lower extremity arterial Doppler ultrasound study was performed. FINDINGS: Normal triphasic and biphasic arterial waveforms are noted in the common femoral, deep femoral, superficial femoral, popliteal, posterior tibial and dorsalis pedal arteries. On the right, the peak systolic velocity of the common femoral artery is 124 cm/s, the proximal femoral artery is 97 cm/s, the mid femoral artery is 88 cm/s, the distal femoral artery is 90 cm/s, the popliteal artery is 61 cm/s, the anterior tibial artery is 60 cm/s, the posterior tibial artery artery is 88 cm/s. On the left, the peak systolic velocity of the common femoral artery is 109 cm/s, the proximal femoral artery is 102 cm/s, the mid femoral artery is 64 cm/s, the distal femoral artery is 106 cm/s, the popliteal artery is 62 cm/s, the anterior tibial artery is 49 cm/s, the posterior tibial artery artery is 66 cm/s. IMPRESSION: 1. Mild diffuse atherosclerotic plaque with no identified hemodynamically significant stenoses. 2. Otherwise normal triphasic and biphasic arterial waveforms noted of the lower extremity artery system.
[2024-10-11] VITALS (7 sets, daily range): BP systolic 120–151; BP diastolic 68–88; PULSE 73–82; RESP 18–20; TEMP 97.8–98.2; O2SAT 93
[2024-10-11] MEDS: DiphenhydrAMINE HCL 25 MG CAPSULE PO ONE (02:43)
[2024-10-11 04:53] LABS: BASOPHILS % (AUTO) 0.9 % (0.0-5.0); EOSINOPHILS # (AUTO) 0.36 K/uL (0.00-0.70); EOSINOPHILS % (AUTO) 3.2 % (0.0-8.0); HEMATOCRIT 41.7 % (42-54); LYMPHOCYTES # (AUTO) 2.3 K/uL (1.0-4.8); LYMPHOCYTES % (AUTO) 20.4 % (21.0-51.0); MEAN CORPUSCULAR HGB CONC 32.6 g/dL (32.0-36.0); MONOCYTES % (AUTO) 8.4 % (3.0-13.0); NEUTROPHILS # (AUTO) 7.5 K/uL (1.8-7.7); NEUTROPHILS % (AUTO) 66.2 % (40.0-77.0); PLATELET COUNT (AUTO) 255 K/uL (130-400); RED BLOOD CELL COUNT(AUTO) 4.85 MIL/uL (4.50-6.20); RED CELL DISTRIBUTION WIDTH 12.9 % (11.0-15.5); WHITE BLOOD COUNT (AUTO) 11.3 K/uL (4.8-10.8)
[2024-10-11 05:18] LABS: HEMOGLOBIN A1C 11.8 % (4.0-6.0)
[2024-10-11 05:20] LABS: ALBUMIN 2.5 g/dL (3.5-5.0); BILIRUBIN,TOTAL 0.3 mg/dL (0.2-1.0); CREATININE 1.6 mg/dL (0.5-1.3); POTASSIUM 4.2 mmol/L (3.5-5.1); TOTAL PROTEIN, SERUM 6.5 g/dL (6.0-8.3)
--- NOTE | 2024-10-11 09:22 | PN ---
[facility] PROGRESS NOTE Date of Service: Oct 11, 2024 Time of Service: 09:20 SUBJECTIVE: [ ] admission date: 10/10/24 PCP: Ada Graves chief complaint: bilateral lower ext pain, redness, subjective Fevers This is a 54-year-old with a significant medical history of diabetes, hypertension and morbid obesity presents in ER with chief complaints of lower extremity pain and open nonhealing ulcers. Onset: ulcers for one month; report was seen in ED a month ago and was sent with oral antibiotics severity severe, aggravating factors: Pain aggravated by standing alleviating factors: None Associated symptoms: subjective Fever and Chills. patient recently went to [facility] with his PCP and was prescribed oral antibiotics he reports ulcers getting worse and decided to come to ED for further evaluation and treatment 10/11/24 The patient seen and examined : reviewed chart: the patient developed a rash to bilateral forearms: itching reported anti histamine was given x1 dose. medicaid collection specialist on board. Patient's blood sugars are elevated patient is on home regimen Lantus 100 unit SQ BID will resumed; He is currently on slidi ng scale we will start him on t.i.d. a.c. regular insulin 5 units discussed that his A1c was 11.8 goal to keep his blood sugar below < 200. REVIEW OF SYSTEMS CONSTITUTIONAL: Denies fevers, chills, or night sweats. No unintentional weight loss reported. NEUROLOGICAL: Denies headache, amaurosis fugax, motor weakness, sensory deficit, vertigo/spinning sensation, gait abnormalities, or tremors. ENT: No hearing loss, otalgia, otorrhea, rhinitis, rhinorrhea, hoarseness, or sore throat. CARDIOVASCULAR: Denies any exertional angina, dyspnea on exertion, orthopnea, paroxysmal nocturnal dyspnea, palpitations, life-threatening arrhythmias, claudication. PULMONARY: Denies any shortness of breath, cough, phlegm/sputum, hemoptysis, pleuritic chest pain. SLEEP: Denies morning headaches, daytime somnolence or napping. Denies difficulty falling asleep, staying asleep, waking from sleep. Denies knowledge of snoring. GASTROINTESTINAL: Denies any type of dysphagia to either liquids or solids. Denies nausea, vomiting, pyrosis, early satiety, abdominal pain, diarrhea, constipation, or changes in stool consistency or caliber. Denies coffee-ground emesis, hematemesis, hematochezia, or melanotic stools. GENITOURINARY: Denies frequency, urgency, nocturia, hematuria or incontinence (Storage/Irritative symptoms.) Low urinary stream, straining to void, urinary intermittency or hesitancy, splitting of the voiding stream, terminal dribbling. ENDOCRINOLOGIC: Denies polyuria, polydipsia, polyphagia or heat/cold intolerances. HEMATOLOGIC: Denies thrombophilia/previous clots, or coagulopathy/bleeding disorders. ONCOLOGIC: Denies personal history of malignancy. DERMATOLOGIC: Denies rashes or pruritus. PSYCHIATRIC: Denies any suicidal or homicidal ideation. Denies hallucinations. PHYSICAL EXAM GENERAL APPEARANCE: The patient is awake, alert, and oriented, in no acute cardiopulmonary distress. NEUROLOGICAL: Cranial nerves II-XII grossly intact. Motor is 5/5 in bilateral upper and lower extremities proximal to distal. No sensory deficits. HEENT: Face is symmetric. Pupils are equal and reactive. Extraocular movements are intact. NECK: Supple. No JVD. No thyromegaly. No submental, submandibular, pre- /postauricular, occipital or supraclavicular lymphadenopathy. CHEST: Normal chest expansion. No Telemetry. LUNGS: Absence of any rales, rhonchi or any wheezing. CARDIOVASCULAR: Regular. S1 and S2 normal. No appreciable rubs, murmurs or gallops. ABDOMEN: Soft, nontender, and nondistended. There is no rebound, voluntary guarding, or rigidity. : Deferred. No Sullivan. EXTREMITIES: Non-edematous and not cyanotic. No clubbing. Good capillary refill. SKIN: several wound to left leg: oozing. +1 edema bilateral lower ext. Vital Signs (last 8hr) Date Time Temp Pulse Resp B/P (MAP) Pulse Ox O2 Delivery O2 Flow Rate FiO2 10/11/24 04:56 97.9 75 18 151/88 100 Room Air LABS: Laboratory: Test 10/11/24 05:40 10/11/24 04:14 10/10/24 06:30 10/10/24 05:06 Range/Units Whole Blood Glucose 192 H 70-110 MG/DL Bedside Glucose Comment Notified Nurse White Blood Count 11.3 #H 4.8-10.8 K/uL Red Blood Count 4.85 4.50-6.20 MIL/uL Hemoglobin 13.6 L 14.0-18.0 g/dL Hematocrit 41.7 L 42-54 % Mean Corpuscular Volume 86.0 79-99 fL Mean Corpuscular Hemoglobin 28.0 27.0-33.0 pg Mean Corpuscular Hemoglobin Concent 32.6 32.0-36.0 g/dL Red Cell Distribution Width 12.9 11.0-15.5 % Platelet Count 255 130-400 K/uL Mean Platelet Volume 8.9 7.5-10.5 fL Immature Granulocyte % (Auto) 0.9 0-1 % Neutrophils (%) (Auto) 66.2 40.0-77.0 % Lymphocytes (%) (Auto) 20.4 L 21.0-51.0 % Monocytes (%) (Auto) 8.4 3.0-13.0 % Eosinophils (%) (Auto) 3.2 0.0-8.0 % Basophils (%) (Auto) 0.9 0.0-5.0 % Neutrophils # (Auto) 7.5 1.8-7.7 K/uL Lymphocytes # (Auto) 2.3 1.0-4.8 K/uL Monocytes # (Auto) 1.0 0.1-1.0 K/uL Eosinophils # (Auto) 0.36 0.00-0.70 K/uL Basophils # (Auto) 0.10 0.00-0.20 K/uL Absolute Immature Granulocyte (auto 0.10 0-1 K/uL Nucleated Red Blood Cells 0.0 0.0-0.19 % Sodium Level 139 136-145 mmol/L Potassium Level 4.2 3.5-5.1 mmol/L Chloride Level 102 101-111 mmol/L Carbon Dioxide Level 32 21-32 mmol/L Blood Urea Nitrogen 28 H 7-18 mg/dL Creatinine 1.6 H 0.5-1.3 mg/dL Glomerular Filtration Rate Calc 51 >90 mL/min Random Glucose 192 H 70-105 mg/dL Hemoglobin A1c 11.8 H 4.0-6.0 % Estimated Average Glucose (eAG) 292 H 70-126 mg/dL Total Calcium 8.3 L 8.5-10.1 mg/dL Magnesium Level 2.00 1.80-2.40 mg/dL Total Bilirubin 0.3 0.2-1.0 mg/dL Aspartate Amino Transf (AST/SGOT) 25 10-37 U/L Alanine Aminotransferase (ALT/SGPT) 34 12-78 U/L Alkaline Phosphatase 94 50-136 U/L Total Protein 6.5 6.0-8.3 g/dL Albumin 2.5 L 3.5-5.0 g/dL Urine Color LIGHT-YELLOW YELLOW Urine Appearance CLEAR CLEAR Urine pH 5.5 5.0-8.0 Urine Specific [place] 1.018 1.001-1.031 Urine Protein 100 H NEGATIVE mg/dL Urine Glucose (UA) >=1000 H NEGATIVE mg/dL Urine Ketones NEGATIVE NEGATIVE mg/dL Urine Occult Blood LARGE H NEGATIVE Urine Nitrate NEGATIVE NEGATIVE Urine Bilirubin NEGATIVE NEGATIVE mg/dL Urine Urobilinogen 0.2 0.2-1.0 mg/dL Urine Leukocyte Esterase NEGATIVE NEGATIVE [place]/uL Urine RBC 51-100 H 0-1 /HPF Urine WBC 2-5 H 0-1 /HPF Urine Squamous Epithelial Cells RARE 0-2 /HPF Urine Bacteria None None Seen /HPF Urine Yeast RARE None Seen /HPF Total Creatine Kinase 213 21-232 U/L Troponin I High Sensitivity 5.6 4-75 ng/L C-Reactive Protein, Quantitative 21.80 H 0.5-3.0 mg/L B-Type Natriuretic Peptide 6 0-100 pg/mL Current Medications Medications (Trade) Dose Ordered Sig/Nico Route PRN Reason Start Time Stop Time Status Last Admin Dose Admin Acetaminophen (TYLenol 325MG TAB) 650 mg Q4H PRN PO TEMPERATURE GREATER THAN 101.5 10/10/24 06:30 11/09/24 06:29 Acetaminophen/ Hydrocodone Bitart (NORco 5/325MG) 1 tab Q4H PRN PO MODERATE PAIN (4-6) 10/10/24 06:30 10/15/24 06:29 10/10/24 18:42 1 TAB Amlodipine Besylate (NorvASC 5MG TAB) 5 mg DAILY PO 10/10/24 09:00 11/09/24 08:59 10/10/24 07:58 5 MG Famotidine (Pepcid 20mg Tab) 20 mg DAILY PO 10/10/24 09:00 11/09/24 08:59 10/10/24 07:53 20 MG Heparin Sodium (Porcine) (HEParin 5,000 UNIT VIAL) 5,000 unit Q12H SQ 10/10/24 10:00 11/09/24 09:59 10/10/24 21:42 5,000 UNIT Hydralazine HCl (APRESOLine 20MG INJ) 5 mg Q4H PRN IV ADMINISTER FOR SBP > 160 10/10/24 06:30 11/09/24 06:29 Insulin Human Regular (humuLIN R 100 UNIT/ML 3ML) INSULIN SLIDING SCAL... ACHS SQ 10/10/24 07:30 11/09/24 07:29 10/11/24 06:26 4 UNIT Magnesium Sulfate 50 ml @ 0 mls/hr PROTOCOL PRN IV low mag level 10/10/24 06:30 11/09/24 06:29 Piperacillin Sod/ Tazobactam Sod (Zosyn 3.375gm+NS 50ml) 3.375 gm Q8H IV 10/10/24 06:00 10/20/24 05:59 10/11/24 06:22 3.375 GM Potassium Chloride 100 ml @ 100 mls/hr AD PRN IV POTASSIUM PROTOCOL 10/10/24 06:30 11/09/24 06:29 Potassium Chloride (K-Dur/Klor-Con 20meq) 20 meq AD PRN PO POTASSIUM PROTOCOL 10/10/24 06:30 11/09/24 06:29 Potassium Chloride (KCl 10% Elixir 20meq/15ml) 20 meq AD PRN PO POTASSIUM PROTOCOL 10/10/24 06:30 11/09/24 06:29 Sodium Chloride 1,000 ml @ 75 mls/hr [id number] IV 10/10/24 06:30 11/09/24 06:29 10/10/24 07:30 75 MLS/HR Vancomycin HCl 250 ml @ 125 mls/hr Q24H IV 10/10/24 07:00 10/10/24 07:31 DC Vancomycin HCl 250 ml @ 125 mls/hr Q24H IV 10/11/24 08:00 10/21/24 07:59 Vancomycin HCl (Vancomycin Protocol) 1 each AD IV 10/10/24 06:30 10/24/24 06:29 Vancomycin HCl (Vancomycin 1g/ 250ml Kit) 1 gm Q12H IV 10/10/24 06:00 10/10/24 06:23 DC DIAGNOSTICS / RADIOLOGY: [ ] ASSESSMENT: Sirs without organ malfunction POA bilateral lower ext. cellulitis POA failed outpatient treatment: POA intractable pain bilateral lower ext. POA nonhealing DM ulcer to left lower ext infected POA Suspecting Venous insufficiency POA bilateral lower +2 edema POA JARED ATN POA Uncontrolled DM POA Morbid obesity POA noncompliance POA PLAN: [ ] admit: Medical surgical floor Abt's: renal dose pharmacy to dose: Vancomycin and Zosyn IV Test: Blood cultures: so far negative wound cultures left leg; in process Venous/arterial Doppler to bilateral lower ext: Noted [place] IVF's Consultants: pr specialist Pain management: [place] 5/325 mg one tab q4 hr PRN DM: Ac.hs monitoring with SSRI coverage and long acting: Lantus 100 unit sq bid goal to keep flood sugar: < 200 lasix 20 mg IV q 12 hrs. Leg elevation at all time Rash forearm: defer to Wound care will follow recommendations. HTN: Norvasc 5 mg po daily avoid NSAIDS renal dose medications. Risk factors modification: weight management diet modified Labs: cbc, cmp and Mag+ Avoid NSAIDS strict I/O, PRN: MEDICATIONS Tylenol 650 mg po every 4 hrs for fever zofran 4 mg IV every 6 hrs for n/v Hydralazine 5 mg IV every 4 hrs systolic pressure > 160 Supportive measures: DVT ppx, GI ppx replace electrolytes as needed basis. all questions answered Supervising MD: Dr. oGdoy c/d ATTESTATION BY PHYSICIAN I have seen and examined the patient. I reviewed the documentation, medical decision making, and treatment plan as noted by the mid-level provider above. I agree with the findings and plan of care. MILLIE GODOY MD, ELIZABETH NP Oct 11, 2024 09:22
[2024-10-11] MEDS ORDERED: RENAL DOSE IV PRN (09:30)
[2024-10-11] MEDS: VANCOMYCIN 1.75 GM/250 ML BAG 250 ML IV SCH (10:15)
[2024-10-11] MEDS ORDERED: GABA-529 PO (10:27)
[2024-10-11] MEDS ORDERED: DOXY50CA PO (10:27)
[2024-10-11] MEDS ORDERED: INSLAN SQ (10:27)
[2024-10-11] MEDS ORDERED: LOSA1TAB37 PO (10:27)
[2024-10-11] MEDS ORDERED: INSU3INS3 SQ (11:58)
[2024-10-11] MEDS ORDERED: LACTULOSE 20 GM/30 ML UDCUP PO PRN (12:00)
[2024-10-11] MEDS: furoSEMIDE 20 MG TABLET PO SCH (12:29)
--- NOTE | 2024-10-11 12:44 | NUR ---
DCP Pt awake, alert, oriented X3 lives with spouse Jyoti Guajardo [phone]. PCP is Star Wei. Independent and currently works at [employer]. Anticipates discharge plan is for home. Addendum: 10/11/24 at 1247 by ERICK TOLLIVER RN CM Amended: Links added.
--- NOTE | 2024-10-11 13:52 | NUR ---
[facility] Consult: Patient assessed by wound healing team. See wound assessment. Assessment and recommendations provided to primary nurse. Education provided. Wound care done. Addendum: 10/11/24 at 1557 by JOSÉ LUIS MORSE RN RN/ Amended: Links added.
--- NOTE | 2024-10-11 16:05 | CONS ---
CONSULTATION NOTE Date of Service: Oct 11, 2024 Reason for Consultation: [ Bilateral lower extremity venous ulcers ] Requesting Physician: [Hospitalist ] HISTORY OF PRESENT ILLNESS: [ 10/11/24 54 yo male presents to ED for bilateral lower extremity discomfort with swelling, pain, and nonhealing ulcers for about a month. Left lower extremity more discomfort than right lower extremity. Some areas of seeping ulceration with erythema and subjective fevers. Wound care consulted for bilateral lower extremity venous ulcers. Pt also developed a rash to his upper extremities and lower extremities in the hospital after antibiotic treament. Pt seen at bedside. Primary nurse Neci at visit. Family present during visit. ] REVIEW OF SYSTEMS CONSTITUTIONAL: Denies fatigue. Positive for subjective fever, chills HEAD/FACE: No signs of trauma. EENT: Denies eye pain, blurred vision, double vision, or light sensitivity. RESPIRATORY: Denies shortness of breath, cough, wheezing CARDIOVASCULAR: Denies chest pain, palpitation, syncope GASTROINTESTINAL/ABDOMINAL: Denies abdominal pain, constipation, diarrhea, nausea or vomiting GENITOURINARY: Denies dysuria or hematuria. MUSCULOSKELETAL: Denies joint pain, tenderness, or trauma. INTEGUMENTARY: Rash of upper and lower extremities, itchy; Bilateral lower extremity wounds NEUROLOGICAL/PSYCH: Denies anxiety, depression, heat or cold intolerance. PAST MEDICAL HISTORY: [ DM, HTN, morbid obesity ] PAST SURGICAL HISTORY: [ ] PAST SOCIAL HISTORY: [ ] FAMILY HISTORY: [ ] Coded Allergies: piperacillin (Unverified Allergy, Severe, HIVES, 10/14/24) tazobactam (Unverified Allergy, Severe, HIVES, 10/14/24) PHYSICAL EXAM EYES: Anicteric. Pupils equal and reactive. HENT: No oral thrush seen, moist Oral mucosa NECK: Supple, no JVD or thyromegaly. LUNGS: Good air entry. No rales, no rhonchi. CARDIOVASCULAR: S1, S2 regular. No murmur heard. ABDOMEN: Soft, non tender, bowel sounds present, no organomegaly CENTRAL NERVOUS SYSTEM: Awake, alert, oriented x 3. No focal deficits. SKIN: No rashes, no swelling. LYMPHATICS: No peripheral lymphadenopathy MUSCULOSKELETAL: No joint swelling, erythema or tenderness. EXTREMITIES: No cyanosis or clubbing; Rash upper and lower extremities. Bilateral lower extremities venous ulcers. BACK: No deformity, no pressure ulcer. GENITOURINARY: No dysuria or hematuria Vital Sign (Last 24 Hours) 10/11/24 10/11/24 08:00 12:00 Temp 98.1 Pulse 77 Resp 18 B/P (MAP) 120/68 Pulse Ox 98 O2 Delivery Room Air O2 Flow Rate 0 FiO2 21 Intake & Output (last 24hrs) 10/10/24 10/10/24 10/11/24 15:00 23:00 07:00 Intake Total 0 ml Balance 0 ml LABS: Laboratory: Test 10/11/24 11:37 10/11/24 05:40 10/11/24 04:14 10/10/24 06:30 Range/Units Whole Blood Glucose 326 #H 70-110 MG/DL Bedside Glucose Comment Notified Nurse White Blood Count 11.3 #H 4.8-10.8 K/uL Red Blood Count 4.85 4.50-6.20 MIL/uL Hemoglobin 13.6 L 14.0-18.0 g/dL Hematocrit 41.7 L 42-54 % Mean Corpuscular Volume 86.0 79-99 fL Mean Corpuscular Hemoglobin 28.0 27.0-33.0 pg Mean Corpuscular Hemoglobin Concent 32.6 32.0-36.0 g/dL Red Cell Distribution Width 12.9 11.0-15.5 % Platelet Count 255 130-400 K/uL Mean Platelet Volume 8.9 7.5-10.5 fL Immature Granulocyte % (Auto) 0.9 0-1 % Neutrophils (%) (Auto) 66.2 40.0-77.0 % Lymphocytes (%) (Auto) 20.4 L 21.0-51.0 % Monocytes (%) (Auto) 8.4 3.0-13.0 % Eosinophils (%) (Auto) 3.2 0.0-8.0 % Basophils (%) (Auto) 0.9 0.0-5.0 % Neutrophils # (Auto) 7.5 1.8-7.7 K/uL Lymphocytes # (Auto) 2.3 1.0-4.8 K/uL Monocytes # (Auto) 1.0 0.1-1.0 K/uL Eosinophils # (Auto) 0.36 0.00-0.70 K/uL Basophils # (Auto) 0.10 0.00-0.20 K/uL Absolute Immature Granulocyte (auto 0.10 0-1 K/uL Nucleated Red Blood Cells 0.0 0.0-0.19 % Sodium Level 139 136-145 mmol/L Potassium Level 4.2 3.5-5.1 mmol/L Chloride Level 102 101-111 mmol/L Carbon Dioxide Level 32 21-32 mmol/L Blood Urea Nitrogen 28 H 7-18 mg/dL Creatinine 1.6 H 0.5-1.3 mg/dL Glomerular Filtration Rate Calc 51 >90 mL/min Random Glucose 192 H 70-105 mg/dL Hemoglobin A1c 11.8 H 4.0-6.0 % Estimated Average Glucose (eAG) 292 H 70-126 mg/dL Total Calcium 8.3 L 8.5-10.1 mg/dL Magnesium Level 2.00 1.80-2.40 mg/dL Total Bilirubin 0.3 0.2-1.0 mg/dL Aspartate Amino Transf (AST/SGOT) 25 10-37 U/L Alanine Aminotransferase (ALT/SGPT) 34 12-78 U/L Alkaline Phosphatase 94 50-136 U/L Total Protein 6.5 6.0-8.3 g/dL Albumin 2.5 L 3.5-5.0 g/dL Urine Color LIGHT-YELLOW YELLOW Urine Appearance CLEAR CLEAR Urine pH 5.5 5.0-8.0 Urine Specific [place] 1.018 1.001-1.031 Urine Protein 100 H NEGATIVE mg/dL Urine Glucose (UA) >=1000 H NEGATIVE mg/dL Urine Ketones NEGATIVE NEGATIVE mg/dL Urine Occult Blood LARGE H NEGATIVE Urine Nitrate NEGATIVE NEGATIVE Urine Bilirubin NEGATIVE NEGATIVE mg/dL Urine Urobilinogen 0.2 0.2-1.0 mg/dL Urine Leukocyte Esterase NEGATIVE NEGATIVE [place]/uL Urine RBC 51-100 H 0-1 /HPF Urine WBC 2-5 H 0-1 /HPF Urine Squamous Epithelial Cells RARE 0-2 /HPF Urine Bacteria None None Seen /HPF Urine Yeast RARE None Seen /HPF Test 10/10/24 05:06 Range/Units Total Creatine Kinase 213 21-232 U/L Troponin I High Sensitivity 5.6 4-75 ng/L C-Reactive Protein, Quantitative 21.80 H 0.5-3.0 mg/L B-Type Natriuretic Peptide 6 0-100 pg/mL DIAGNOSTICS / RADIOLOGY: [ ] PROBLEM LIST : Medical Problems: (1) CKD (chronic kidney disease) ICD Codes: N18.9 - Chronic kidney disease, unspecified (2) Hyperglycemia ICD Codes: R73.9 - Hyperglycemia, unspecified (3) Lower extremity cellulitis ICD Codes: L03.119 - Cellulitis of unspecified part of limb Venous ulcers to bilateral lower extremities Rash to upper and lower extremities PLAN: [ Vashe, anicep with dry dressing to ulcers of bilateral lower extremities hydrocortizone cream for rash ] MARIA VICTORIA BURNETT Oct 11, 2024 16:05
[2024-10-11] MEDS: HydroCORTISONE 1% CREAM 28G TP SCH (20:15)
[2024-10-11] MEDS: INSULIN GLARgine 100 UNITS/ML 10 ML VIAL SQ SCH (20:33)
[2024-10-11] MEDS: INSULIN humuLIN R 100 UNIT/ML 3ML SQ SCH (20:35)
[2024-10-11] MEDS ORDERED: [UNRECOGNIZED DRUG - OTHER] SQ SCH (21:00)
[2024-10-11] MEDS ORDERED: INSULIN GLARGINE HUM REC ANLOG 30 UNIT SQ SCH (21:00)
[2024-10-11] MEDS ORDERED: INSULIN GLARgine 100 UNITS/ML 10 ML VIAL SQ SCH (21:00)
[2024-10-12] VITALS (7 sets, daily range): BP systolic 138–152; BP diastolic 74–83; PULSE 66–83; RESP 16–21; TEMP 97.7–98.2; O2SAT 96–97
[2024-10-12 05:11] LABS: BASOPHILS % (AUTO) 0.9 % (0.0-5.0); EOSINOPHILS # (AUTO) 0.33 K/uL (0.00-0.70); IMMATURE GRANULOCYTE ABSOLUTE 0.11 K/uL (0-1); LYMPHOCYTES # (AUTO) 2.9 K/uL (1.0-4.8); MEAN CORPUSCULAR HEMOGLOBIN 27.7 pg (27.0-33.0); MEAN CORPUSCULAR HGB CONC 32.6 g/dL (32.0-36.0); MEAN CORPUSCULAR VOLUME 85.1 fL (79-99); MONOCYTES % (AUTO) 8.8 % (3.0-13.0); NEUTROPHILS # (AUTO) 6.7 K/uL (1.8-7.7); NEUTROPHILS % (AUTO) 60.3 % (40.0-77.0); PLATELET COUNT (AUTO) 255 K/uL (130-400); RED BLOOD CELL COUNT(AUTO) 5.05 MIL/uL (4.50-6.20); WHITE BLOOD COUNT (AUTO) 11.1 K/uL (4.8-10.8)
[2024-10-12 05:31] LABS: ALBUMIN 2.7 g/dL (3.5-5.0); BILIRUBIN,TOTAL 0.4 mg/dL (0.2-1.0); CREATININE 1.4 mg/dL (0.5-1.3); MAGNESIUM 2.1 mg/dL (1.80-2.40); POTASSIUM 4.2 mmol/L (3.5-5.1); TOTAL PROTEIN, SERUM 6.8 g/dL (6.0-8.3)
--- NOTE | 2024-10-12 13:09 | PN ---
[facility] PROGRESS NOTE Date of Service: Oct 12, 2024 Time of Service: 13:04 SUBJECTIVE: [ ] admission date: 10/10/24 PCP: dAa Graves chief complaint: bilateral lower ext pain, redness, subjective Fevers This is a 54-year-old with a significant medical history of diabetes, hypertension and morbid obesity presents in ER with chief complaints of lower extremity pain and open nonhealing ulcers. Onset: ulcers for one month; report was seen in ED a month ago and was sent with oral antibiotics severity severe, aggravating factors: Pain aggravated by standing alleviating factors: None Associated symptoms: subjective Fever and Chills. patient recently went to [facility] with his PCP and was prescribed oral antibiotics he reports ulcers getting worse and decided to come to ED for further evaluation and treatment 10/11/24 The patient seen and examined : reviewed chart: the patient developed a rash to bilateral forearms: itching reported anti histamine was given x1 dose. emergency medicine specialist on board. Patient's blood sugars are elevated patient is on home regimen Lantus 100 unit SQ BID will resumed; He is currently on slidi ng scale we will start him on t.i.d. a.c. regular insulin 5 units discussed that his A1c was 11.8 goal to keep his blood sugar below < 200. 10/12/24 patient was seen earlier in examined reviewed case discussed with attending. Review labs blood sugars are much controlled now. Creatinine improving. Edematous to lower extremity improving as well with diuretics. Encourage patient to ambulate in room keep lower extremities elevated while sitting in chair. Denied chest pain or shortness for. REVIEW OF SYSTEMS CONSTITUTIONAL: Denies fevers, chills, or night sweats. No unintentional weight loss reported. NEUROLOGICAL: Denies headache, amaurosis fugax, motor weakness, sensory deficit, vertigo/spinning sensation, gait abnormalities, or tremors. ENT: No hearing loss, otalgia, otorrhea, rhinitis, rhinorrhea, hoarseness, or sore throat. CARDIOVASCULAR: Denies any exertional angina, dyspnea on exertion, orthopnea, paroxysmal nocturnal dyspnea, palpitations, life-threatening arrhythmias, claudication. PULMONARY: Denies any shortness of breath, cough, phlegm/sputum, hemoptysis, pleuritic chest pain. SLEEP: Denies morning headaches, daytime somnolence or napping. Denies difficulty falling asleep, staying asleep, waking from sleep. Denies knowledge of snoring. GASTROINTESTINAL: Denies any type of dysphagia to either liquids or solids. Denies nausea, vomiting, pyrosis, early satiety, abdominal pain, diarrhea, constipation, or changes in stool consistency or caliber. Denies coffee-ground emesis, hematemesis, hematochezia, or melanotic stools. GENITOURINARY: Denies frequency, urgency, nocturia, hematuria or incontinence (Storage/Irritative symptoms.) Low urinary stream, straining to void, urinary intermittency or hesitancy, splitting of the voiding stream, terminal dribbling. ENDOCRINOLOGIC: Denies polyuria, polydipsia, polyphagia or heat/cold intolerances. HEMATOLOGIC: Denies thrombophilia/previous clots, or coagulopathy/bleeding disorders. ONCOLOGIC: Denies personal history of malignancy. DERMATOLOGIC: Denies rashes or pruritus. PSYCHIATRIC: Denies any suicidal or homicidal ideation. Denies hallucinations. PHYSICAL EXAM GENERAL APPEARANCE: The patient is awake, alert, and oriented, in no acute cardiopulmonary distress. NEUROLOGICAL: Cranial nerves II-XII grossly intact. Motor is 5/5 in bilateral upper and lower extremities proximal to distal. No sensory deficits. HEENT: Face is symmetric. Pupils are equal and reactive. Extraocular movements are intact. NECK: Supple. No JVD. No thyromegaly. No submental, submandibular, pre- /postauricular, occipital or supraclavicular lymphadenopathy. CHEST: Normal chest expansion. No Telemetry. LUNGS: Absence of any rales, rhonchi or any wheezing. CARDIOVASCULAR: Regular. S1 and S2 normal. No appreciable rubs, murmurs or gallops. ABDOMEN: Soft, nontender, and nondistended. There is no rebound, voluntary guarding, or rigidity. : Deferred. No Sullivan. EXTREMITIES: Non-edematous and not cyanotic. No clubbing. Good capillary refill. SKIN: several wound to left leg: oozing. +1 edema bilateral lower ext. Vital Signs (last 8hr) Date Time Temp Pulse Resp B/P (MAP) Pulse Ox O2 Delivery O2 Flow Rate FiO2 10/12/24 11:51 98.2 76 21 138/80 94 Room Air 21 10/12/24 08:00 98.1 83 21 143/83 96 Room Air 21 10/12/24 08:00 96 Room Air* 0 21 10/12/24 05:13 97.9 66 20 140/77 98 Room Air LABS: Laboratory: Test 10/12/24 10:44 10/12/24 05:20 10/12/24 04:51 10/11/24 04:14 Range/Units Whole Blood Glucose 276 #H 70-110 MG/DL Bedside Glucose Comment Notified Nurse White Blood Count 11.1 H 4.8-10.8 K/uL Red Blood Count 5.05 4.50-6.20 MIL/uL Hemoglobin 14.0 14.0-18.0 g/dL Hematocrit 43.0 42-54 % Mean Corpuscular Volume 85.1 79-99 fL Mean Corpuscular Hemoglobin 27.7 27.0-33.0 pg Mean Corpuscular Hemoglobin Concent 32.6 32.0-36.0 g/dL Red Cell Distribution Width 13.0 11.0-15.5 % Platelet Count 255 130-400 K/uL Mean Platelet Volume 8.7 7.5-10.5 fL Immature Granulocyte % (Auto) 1.0 0-1 % Neutrophils (%) (Auto) 60.3 40.0-77.0 % Lymphocytes (%) (Auto) 26.0 21.0-51.0 % Monocytes (%) (Auto) 8.8 3.0-13.0 % Eosinophils (%) (Auto) 3.0 0.0-8.0 % Basophils (%) (Auto) 0.9 0.0-5.0 % Neutrophils # (Auto) 6.7 1.8-7.7 K/uL Lymphocytes # (Auto) 2.9 1.0-4.8 K/uL Monocytes # (Auto) 1.0 0.1-1.0 K/uL Eosinophils # (Auto) 0.33 0.00-0.70 K/uL Basophils # (Auto) 0.10 0.00-0.20 K/uL Absolute Immature Granulocyte (auto 0.11 0-1 K/uL Nucleated Red Blood Cells 0.0 0.0-0.19 % Sodium Level 141 136-145 mmol/L Potassium Level 4.2 3.5-5.1 mmol/L Chloride Level 103 101-111 mmol/L Carbon Dioxide Level 33 H 21-32 mmol/L Blood Urea Nitrogen 23 H 7-18 mg/dL Creatinine 1.4 H 0.5-1.3 mg/dL Glomerular Filtration Rate Calc 60 >90 mL/min Random Glucose 135 H 70-105 mg/dL Total Calcium 8.7 8.5-10.1 mg/dL Magnesium Level 2.10 1.80-2.40 mg/dL Total Bilirubin 0.4 0.2-1.0 mg/dL Aspartate Amino Transf (AST/SGOT) 21 10-37 U/L Alanine Aminotransferase (ALT/SGPT) 26 12-78 U/L Alkaline Phosphatase 87 50-136 U/L Total Protein 6.8 6.0-8.3 g/dL Albumin 2.7 L 3.5-5.0 g/dL Hemoglobin A1c 11.8 H 4.0-6.0 % Estimated Average Glucose (eAG) 292 H 70-126 mg/dL Current Medications Medications (Trade) Dose Ordered Sig/Nico Route PRN Reason Start Time Stop Time Status Last Admin Dose Admin Acetaminophen (TYLenol 325MG TAB) 650 mg Q4H PRN PO TEMPERATURE GREATER THAN 101.5 10/10/24 06:30 11/09/24 06:29 Acetaminophen/ Hydrocodone Bitart (NORco 5/325MG) 1 tab Q4H PRN PO MODERATE PAIN (4-6) 10/10/24 06:30 10/15/24 06:29 10/11/24 23:04 1 TAB Amlodipine Besylate (NorvASC 5MG TAB) 5 mg DAILY PO 10/10/24 09:00 11/09/24 08:59 10/12/24 08:53 5 MG Famotidine (Pepcid 20mg Tab) 20 mg DAILY PO 10/10/24 09:00 11/09/24 08:59 10/12/24 08:53 20 MG Furosemide (LASix 20MG TAB) 20 mg Q12H PO 10/11/24 12:00 11/10/24 11:59 10/12/24 11:22 20 MG Heparin Sodium (Porcine) (HEParin 5,000 UNIT VIAL) 5,000 unit Q12H SQ 10/10/24 10:00 11/09/24 09:59 10/12/24 09:02 5,000 UNIT Hydralazine HCl (APRESOLine 20MG INJ) 5 mg Q4H PRN IV ADMINISTER FOR SBP > 160 10/10/24 06:30 11/09/24 06:29 Hydrocortisone (corTRIsone 1% CREAM) 1 APPL BID TP 10/11/24 21:00 11/10/24 20:59 10/12/24 08:53 1 APPL Insulin Glargine (LANtus 100 UNITS/ML 10 ML VIAL) 30 units HS SQ 10/11/24 21:00 11/10/24 20:59 10/11/24 20:33 30 UNITS Insulin Glargine (LANtus 100 UNITS/ML 10 ML VIAL) 100 units BID SQ 10/11/24 21:00 10/11/24 11:53 DC Insulin Human Regular (humuLIN R 100 UNIT/ML 3ML) INSULIN SLIDING SCAL... ACHS SQ 10/10/24 07:30 10/11/24 20:31 DC 10/11/24 18:21 14 UNIT Insulin Human Regular (humuLIN R 100 UNIT/ML 3ML) INSULIN SLIDING SCAL... ACHS SQ 10/11/24 21:00 11/10/24 20:59 10/12/24 11:28 14 UNIT Lactulose (Constulose 20gm/ 30ml Udcup) 20 gm BID PRN PO CONSTIPATION 10/11/24 12:00 11/10/24 11:59 Magnesium Sulfate 50 ml @ 0 mls/hr PROTOCOL PRN IV low mag level 10/10/24 06:30 11/09/24 06:29 Miscellaneous Medication (Insulin Glargine,Hum.rec.anlog (Lantus Solostar)) 30 unit HS SQ 10/11/24 21:00 10/11/24 12:00 DC Piperacillin Sod/ Tazobactam Sod (Zosyn 3.375gm+NS 50ml) 3.375 gm Q8H IV 10/10/24 06:00 10/20/24 05:59 10/12/24 05:43 3.375 GM Potassium Chloride 100 ml @ 100 mls/hr AD PRN IV POTASSIUM PROTOCOL 10/10/24 06:30 11/09/24 06:29 Potassium Chloride (K-Dur/Klor-Con 20meq) 20 meq AD PRN PO POTASSIUM PROTOCOL 10/10/24 06:30 11/09/24 06:29 Potassium Chloride (KCl 10% Elixir 20meq/15ml) 20 meq AD PRN PO POTASSIUM PROTOCOL 10/10/24 06:30 11/09/24 06:29 Sodium Chloride 1,000 ml @ 75 mls/hr [id number] IV 10/10/24 06:30 10/11/24 09:25 DC 10/10/24 07:30 75 MLS/HR Vancomycin HCl 250 ml @ 125 mls/hr Q24H IV 10/10/24 07:00 10/10/24 07:31 DC Vancomycin HCl 250 ml @ 125 mls/hr Q24H IV 10/11/24 08:00 10/21/24 07:59 10/12/24 08:52 125 MLS/HR Vancomycin HCl (Vancomycin Protocol) 1 each AD IV 10/10/24 06:30 10/24/24 06:29 Vancomycin HCl (Vancomycin 1g/ 250ml Kit) 1 gm Q12H IV 10/10/24 06:00 10/10/24 06:23 DC DIAGNOSTICS / RADIOLOGY: [ ] ASSESSMENT: Sirs without organ malfunction POA bilateral lower ext. cellulitis POA failed outpatient treatment: POA intractable pain bilateral lower ext. POA nonhealing DM ulcer to left lower ext infected POA Suspecting Venous insufficiency POA bilateral lower +2 edema POA JARED ATN POA Uncontrolled DM POA Morbid obesity POA noncompliance POA PLAN: [ ] admit: Medical surgical floor Abt's: renal dose pharmacy to dose: Vancomycin and Zosyn IV Heplock IVF's Consultants: specialist wound care recommend hydrocortisone to rash. We will follow her recommendations on wound dressing. Wound cultures so far no growth. Blood cultures negative for two days. Pain management: [place] 5/325 mg one tab q4 hr PRN DM: Ac.hs monitoring with SSRI coverage and long acting: Lantus 100 unit sq bid goal to keep flood sugar: < 200 lasix 20 mg IV q 12 hrs. Leg elevation at all time HTN: Norvasc 5 mg po daily avoid NSAIDS renal dose medications. Risk factors modification: weight management diet modified Labs: cbc, cmp and Mag+ Avoid NSAIDS strict I/O, PRN: MEDICATIONS Tylenol 650 mg po every 4 hrs for fever zofran 4 mg IV every 6 hrs for n/v Hydralazine 5 mg IV every 4 hrs systolic pressure > 160 Supportive measures: DVT ppx, GI ppx replace electrolytes as needed basis. all questions answered Supervising MD: Dr. Godoy c/d ATTESTATION BY PHYSICIAN I have seen and examined the patient. I reviewed the documentation, medical decision making, and treatment plan as noted by the mid-level provider above. I agree with the findings and plan of care. MILLIE GODOY MD, ELIZABETH NP Oct 12, 2024 13:09
[2024-10-12] MEDS: DiphenhydrAMINE HCL 25 MG CAPSULE PO PRN (14:29)
[2024-10-13] VITALS (9 sets, daily range): BP systolic 122–161; BP diastolic 57–89; PULSE 78–94; RESP 16–20; TEMP 97.3–98.6; O2SAT 95–99
[2024-10-13] MEDS: FAMOTIDINE 20MG VIAL IV STA (00:45)
[2024-10-13] MEDS: Solu-medROL 125MG VIAL IVP STA (00:45)
[2024-10-13] MEDS: EPINEPHrine PF 1MG (1:1,000) 1 MG/ML AMP SQ STA (00:46)
--- NOTE | 2024-10-13 08:30 | NUR ---
SPOKE TO PATIENT REGARDING SCHEDULED VANCOMYCIN, STATES HE DOES NOT WANT TO TAKE MEDICATION DUE TO ALLERGIC REACTION. CLARIFIED TO PATIENT THAT ZOSYN WAS THE ANTIBIOTIC HE RECEIVED LAST NIGHT THAT CAUSED REACTION, AT THIS TIME HAS BEEN DISCONTINUED, FURTHER CLARIFIED THAT HE HAS RECEIVED VANCOMYCIN PREVIOUSLY DURING ADMISSION WITHOUT NOTED REACTION. STATES HE FEELS "MUCH BETTER" AND DOES NOT THINK HE NEEDS ANY MORE ANTIBIOTICS. EDUCATED PATIENT REGARDING IMPORTANCE OF CONTINUING ANTIBIOTICS ORDERED BY MD EVEN IF FEELING BETTER, STATES HE DOES NOT WANT TO RECEIVE ANY MORE IV ANTIBIOTICS AT THIS TIME, STATES HE FEELS LIKE IT IS MAKING HIM WORSE. FURTHER STATES HE DOES NOT WANT SCHEDULED HEPARIN SQ INJ, MADE AWARE MEDICATION IS FOR PREVENTION OF BLOOD CLOTS IN LEGS WHILE IN HOSPITAL, STATES HE DOES FEEL THAT HE NEEDS IT. [employer] MADE AWARE. PATIENT MADE AWARE REFUSAL FORM WILL NEED TO BE SIGNED, VERBALIZED UNDERSTANDING.
[2024-10-13] MEDS: acetaMINOPHEN 325 MG TAB PO PRN (09:41)
[2024-10-13] MEDS: INSULIN humuLIN R 100 UNIT/ML 3ML SQ ONE (12:08)
[2024-10-13 12:10] LABS: BASOPHILS # (AUTO) 0.03 K/uL (0.00-0.20); BASOPHILS % (AUTO) 0.2 % (0.0-5.0); HEMATOCRIT 44.5 % (42-54); LYMPHOCYTES # (AUTO) 0.6 K/uL (1.0-4.8); LYMPHOCYTES % (AUTO) 4.3 % (21.0-51.0); MEAN CORPUSCULAR HEMOGLOBIN 28.5 pg (27.0-33.0); MEAN CORPUSCULAR VOLUME 86.2 fL (79-99); MONOCYTES # (AUTO) 0.1 K/uL (0.1-1.0); MONOCYTES % (AUTO) 0.6 % (3.0-13.0); NEUTROPHILS # (AUTO) 12.4 K/uL (1.8-7.7); NEUTROPHILS % (AUTO) 94.1 % (40.0-77.0); PLATELET COUNT (AUTO) 262 K/uL (130-400); RED BLOOD CELL COUNT(AUTO) 5.16 MIL/uL (4.50-6.20); RED CELL DISTRIBUTION WIDTH 12.7 % (11.0-15.5); WHITE BLOOD COUNT (AUTO) 13.2 K/uL (4.8-10.8)
--- NOTE | 2024-10-13 12:21 | PN ---
[facility] PROGRESS NOTE Date of Service: Oct 13, 2024 Time of Service: 12:10 SUBJECTIVE: [ ] admission date: 10/10/24 PCP: Ada Graves chief complaint: bilateral lower ext pain, redness, subjective Fevers This is a 54-year-old with a significant medical history of diabetes, hypertension and morbid obesity presents in ER with chief complaints of lower extremity pain and open nonhealing ulcers. Onset: ulcers for one month; report was seen in ED a month ago and was sent with oral antibiotics severity severe, aggravating factors: Pain aggravated by standing alleviating factors: None Associated symptoms: subjective Fever and Chills. patient recently went to [facility] with his PCP and was prescribed oral antibiotics he reports ulcers getting worse and decided to come to ED for further evaluation and treatment 10/11/24 The patient seen and examined : reviewed chart: the patient developed a rash to bilateral forearms: itching reported anti histamine was given x1 dose. life enrichment specialist on board. Patient's blood sugars are elevated patient is on home regimen Lantus 100 unit SQ BID will resumed; He is currently on slidi ng scale we will start him on t.i.d. a.c. regular insulin 5 units discussed that his A1c was 11.8 goal to keep his blood sugar below < 200. 10/12/24 patient was seen earlier in examined reviewed case discussed with attending. Review labs blood sugars are much controlled now. Creatinine improving. Edematous to lower extremity improving as well with diuretics. Encourage patient to ambulate in room keep lower extremities elevated while sitting in chair. Denied chest pain or shortness of breath 10/13/24 patient is seen and examined. Patient reports no apparently he has been refusing vancomycin. Therefore, we will start him on doxycycline 100 p.o. patient continues with local wound care wound cultures negative Patient continues with elevated blood sugars review home medication patient's Lantus in the morning is 50 units at bedtime 30 therefore we will resume a.m.. REVIEW OF SYSTEMS CONSTITUTIONAL: Denies fevers, chills, or night sweats. No unintentional weight loss reported. NEUROLOGICAL: Denies headache, amaurosis fugax, motor weakness, sensory deficit, vertigo/spinning sensation, gait abnormalities, or tremors. ENT: No hearing loss, otalgia, otorrhea, rhinitis, rhinorrhea, hoarseness, or sore throat. CARDIOVASCULAR: Denies any exertional angina, dyspnea on exertion, orthopnea, paroxysmal nocturnal dyspnea, palpitations, life-threatening arrhythmias, claudication. PULMONARY: Denies any shortness of breath, cough, phlegm/sputum, hemoptysis, pleuritic chest pain. SLEEP: Denies morning headaches, daytime somnolence or napping. Denies difficulty falling asleep, staying asleep, waking from sleep. Denies knowledge of snoring. GASTROINTESTINAL: Denies any type of dysphagia to either liquids or solids. Denies nausea, vomiting, pyrosis, early satiety, abdominal pain, diarrhea, constipation, or changes in stool consistency or caliber. Denies coffee-ground emesis, hematemesis, hematochezia, or melanotic stools. GENITOURINARY: Denies frequency, urgency, nocturia, hematuria or incontinence (Storage/Irritative symptoms.) Low urinary stream, straining to void, urinary intermittency or hesitancy, splitting of the voiding stream, terminal dribbling. ENDOCRINOLOGIC: Denies polyuria, polydipsia, polyphagia or heat/cold intolerances. HEMATOLOGIC: Denies thrombophilia/previous clots, or coagulopathy/bleeding disorders. ONCOLOGIC: Denies personal history of malignancy. DERMATOLOGIC: Denies rashes or pruritus. PSYCHIATRIC: Denies any suicidal or homicidal ideation. Denies hallucinations. PHYSICAL EXAM GENERAL APPEARANCE: The patient is awake, alert, and oriented, in no acute cardiopulmonary distress. NEUROLOGICAL: Cranial nerves II-XII grossly intact. Motor is 5/5 in bilateral upper and lower extremities proximal to distal. No sensory deficits. HEENT: Face is symmetric. Pupils are equal and reactive. Extraocular movements are intact. NECK: Supple. No JVD. No thyromegaly. No submental, submandibular, pre- /postauricular, occipital or supraclavicular lymphadenopathy. CHEST: Normal chest expansion. No Telemetry. LUNGS: Absence of any rales, rhonchi or any wheezing. CARDIOVASCULAR: Regular. S1 and S2 normal. No appreciable rubs, murmurs or gallops. ABDOMEN: Soft, nontender, and nondistended. There is no rebound, voluntary guarding, or rigidity. : Deferred. No Sullivan. EXTREMITIES: Non-edematous and not cyanotic. No clubbing. Good capillary refill. SKIN: several wound to left leg: oozing. +1 edema bilateral lower ext. Vital Signs (last 8hr) Date Time Temp Pulse Resp B/P (MAP) Pulse Ox O2 Delivery O2 Flow Rate FiO2 10/13/24 12:00 97.5 80 16 148/72 93 Room Air 10/13/24 11:22 98.2 82 20 154/72 100 Room Air 10/13/24 08:25 98.2 94 19 143/78 96 Room Air 10/13/24 08:00 98.6 92 16 151/76 94 Room Air 10/13/24 04:26 97.3 93 20 122/57 93 Room Air LABS: Laboratory: Test 10/13/24 11:53 10/13/24 11:52 10/13/24 10:42 10/13/24 07:30 Range/Units White Blood Count 13.2 H 4.8-10.8 K/uL Red Blood Count 5.16 4.50-6.20 MIL/uL Hemoglobin 14.7 14.0-18.0 g/dL Hematocrit 44.5 42-54 % Mean Corpuscular Volume 86.2 79-99 fL Mean Corpuscular Hemoglobin 28.5 27.0-33.0 pg Mean Corpuscular Hemoglobin Concent 33.0 32.0-36.0 g/dL Red Cell Distribution Width 12.7 11.0-15.5 % Platelet Count 262 130-400 K/uL Mean Platelet Volume 8.7 7.5-10.5 fL Immature Granulocyte % (Auto) 0.8 0-1 % Neutrophils (%) (Auto) 94.1 H 40.0-77.0 % Lymphocytes (%) (Auto) 4.3 L 21.0-51.0 % Monocytes (%) (Auto) 0.6 L 3.0-13.0 % Eosinophils (%) (Auto) 0.0 0.0-8.0 % Basophils (%) (Auto) 0.2 0.0-5.0 % Neutrophils # (Auto) 12.4 H 1.8-7.7 K/uL Lymphocytes # (Auto) 0.6 L 1.0-4.8 K/uL Monocytes # (Auto) 0.1 0.1-1.0 K/uL Eosinophils # (Auto) 0.00 0.00-0.70 K/uL Basophils # (Auto) 0.03 0.00-0.20 K/uL Absolute Immature Granulocyte (auto 0.10 0-1 K/uL Nucleated Red Blood Cells 0.0 0.0-0.19 % Whole Blood Glucose 524 *H 70-110 MG/DL Bedside Glucose Comment Protocol Initiated Bedside Glucose #2 Comment Stat Lab Glu Request Vancomycin Level Trough 10.2 10.0-20.0 UG/ML Test 10/12/24 04:51 Range/Units Sodium Level 141 136-145 mmol/L Potassium Level 4.2 3.5-5.1 mmol/L Chloride Level 103 101-111 mmol/L Carbon Dioxide Level 33 H 21-32 mmol/L Blood Urea Nitrogen 23 H 7-18 mg/dL Creatinine 1.4 H 0.5-1.3 mg/dL Glomerular Filtration Rate Calc 60 >90 mL/min Random Glucose 135 H 70-105 mg/dL Total Calcium 8.7 8.5-10.1 mg/dL Magnesium Level 2.10 1.80-2.40 mg/dL Total Bilirubin 0.4 0.2-1.0 mg/dL Aspartate Amino Transf (AST/SGOT) 21 10-37 U/L Alanine Aminotransferase (ALT/SGPT) 26 12-78 U/L Alkaline Phosphatase 87 50-136 U/L Total Protein 6.8 6.0-8.3 g/dL Albumin 2.7 L 3.5-5.0 g/dL Current Medications Medications (Trade) Dose Ordered Sig/Nico Route PRN Reason Start Time Stop Time Status Last Admin Dose Admin Acetaminophen (TYLenol 325MG TAB) 650 mg Q4H PRN PO TEMPERATURE GREATER THAN 101.5 10/10/24 06:30 11/09/24 06:29 10/13/24 09:41 650 MG Acetaminophen/ Hydrocodone Bitart (NORco 5/325MG) 1 tab Q4H PRN PO MODERATE PAIN (4-6) 10/10/24 06:30 10/15/24 06:29 10/11/24 23:04 1 TAB Amlodipine Besylate (NorvASC 5MG TAB) 5 mg DAILY PO 10/10/24 09:00 11/09/24 08:59 10/13/24 08:15 5 MG Diphenhydramine HCl (BENAdryl CAP) 25 mg Q8H PRN PO ITCHING 10/12/24 14:30 11/11/24 14:29 10/12/24 23:12 25 MG Doxycycline Hyclate (Doxycycline Hyclate) 100 mg BID PO 10/13/24 21:00 10/23/24 20:59 Epinephrine HCl (ADRENaline PF 1MG AMP) 0.3 mg ONCE STAT SQ 10/13/24 00:23 10/13/24 00:31 DC 10/13/24 00:46 0.3 MG Famotidine (Pepcid 20mg Vial) 20 mg ONCE STAT IV 10/13/24 00:23 10/13/24 00:29 DC 10/13/24 00:45 20 MG Famotidine (Pepcid 20mg Tab) 20 mg DAILY PO 10/10/24 09:00 11/09/24 08:59 10/13/24 08:15 20 MG Furosemide (LASix 20MG TAB) 20 mg Q12H PO 10/11/24 12:00 11/10/24 11:59 10/13/24 12:06 20 MG Heparin Sodium (Porcine) (HEParin 5,000 UNIT VIAL) 5,000 unit Q12H SQ 10/10/24 10:00 11/09/24 09:59 10/12/24 22:06 5,000 UNIT Hydralazine HCl (APRESOLine 20MG INJ) 5 mg Q4H PRN IV ADMINISTER FOR SBP > 160 10/10/24 06:30 11/09/24 06:29 Hydrocortisone (corTRIsone 1% CREAM) 1 APPL BID TP 10/11/24 21:00 11/10/24 20:59 10/13/24 08:15 1 APPL Insulin Glargine (LANtus 100 UNITS/ML 10 ML VIAL) 30 units HS SQ 10/11/24 21:00 11/10/24 20:59 10/12/24 21:00 30 UNITS Insulin Glargine (LANtus 100 UNITS/ML 10 ML VIAL) 100 units BID SQ 10/11/24 21:00 10/11/24 11:53 DC Insulin Human Regular (humuLIN R 100 UNIT/ML 3ML) INSULIN SLIDING SCAL... ACHS SQ 10/10/24 07:30 10/11/24 20:31 DC 10/11/24 18:21 14 UNIT Insulin Human Regular (humuLIN R 100 UNIT/ML 3ML) INSULIN SLIDING SCAL... ACHS SQ 10/11/24 21:00 11/10/24 20:59 10/13/24 11:04 20 UNIT Lactulose (Constulose 20gm/ 30ml Udcup) 20 gm BID PRN PO CONSTIPATION 10/11/24 12:00 11/10/24 11:59 Magnesium Sulfate 50 ml @ 0 mls/hr PROTOCOL PRN IV low mag level 10/10/24 06:30 11/09/24 06:29 Methylprednisolone Sodium Succinate (Solu-medROL 125MG) 125 mg ONCE STAT IVP 10/13/24 00:23 10/13/24 00:29 DC 10/13/24 00:45 125 MG Miscellaneous Medication (Insulin Glargine,Hum.rec.anlog (Lantus Solostar)) 30 unit HS SQ 10/11/24 21:00 10/11/24 12:00 DC Piperacillin Sod/ Tazobactam Sod (Zosyn 3.375gm+NS 50ml) 3.375 gm Q8H IV 10/10/24 06:00 10/13/24 00:26 DC 10/12/24 22:05 3.375 GM Potassium Chloride 100 ml @ 100 mls/hr AD PRN IV POTASSIUM PROTOCOL 10/10/24 06:30 11/09/24 06:29 Potassium Chloride (K-Dur/Klor-Con 20meq) 20 meq AD PRN PO POTASSIUM PROTOCOL 10/10/24 06:30 11/09/24 06:29 Potassium Chloride (KCl 10% Elixir 20meq/15ml) 20 meq AD PRN PO POTASSIUM PROTOCOL 10/10/24 06:30 11/09/24 06:29 Sodium Chloride 1,000 ml @ 75 mls/hr [id number] IV 10/10/24 06:30 10/11/24 09:25 DC 10/10/24 07:30 75 MLS/HR Vancomycin HCl 250 ml @ 125 mls/hr Q24H IV 10/10/24 07:00 10/10/24 07:31 DC Vancomycin HCl 250 ml @ 125 mls/hr Q24H IV 10/11/24 08:00 10/21/24 07:59 10/12/24 08:52 125 MLS/HR Vancomycin HCl (Vancomycin Protocol) 1 each AD IV 10/10/24 06:30 10/24/24 06:29 Vancomycin HCl (Vancomycin 1g/ 250ml Kit) 1 gm Q12H IV 10/10/24 06:00 10/10/24 06:23 DC DIAGNOSTICS / RADIOLOGY: [ ] ASSESSMENT: Sirs without organ malfunction POA bilateral lower ext. cellulitis POA failed outpatient treatment: POA intractable pain bilateral lower ext. POA nonhealing DM ulcer to left lower ext infected POA Suspecting Venous insufficiency POA bilateral lower +2 edema POA JARED ATN POA Uncontrolled DM POA Morbid obesity POA noncompliance POA PLAN: [ ] admit: Medical surgical floor Abt's: renal dose pharmacy to dose: Vancomycin and Zosyn IV Heplock IVF's Consultants: freight rate specialist recommend hydrocortisone to rash. We will follow her recommendations on wound dressing. Wound cultures so far no growth. Blood cultures negative for two days. Pain management: [place] 5/325 mg one tab q4 hr PRN DM: Ac.hs monitoring with SSRI coverage and long acting: Lantus 30 unit sq bedt lily resume 50 units every a.m.. goal to keep flood sugar: < 200 Lasix 20 mg IV q 12 hrs. Leg elevation at all time HTN: Norvasc 5 mg po daily avoid NSAIDS renal dose medications. Risk factors modification: weight management diet modified Labs: cbc, cmp and Mag+ Avoid NSAIDS strict I/O, PRN: MEDICATIONS Tylenol 650 mg po every 4 hrs for fever zofran 4 mg IV every 6 hrs for n/v Hydralazine 5 mg IV every 4 hrs systolic pressure > 160 Supportive measures: DVT ppx, GI ppx replace electrolytes as needed basis. all questions answered Supervising MD: Dr. Godoy c/d ATTESTATION BY PHYSICIAN I have seen and examined the patient. I reviewed the documentation, medical decision making, and treatment plan as noted by the mid-level provider above. I agree with the findings and plan of care. MILLIE GODOY MD, ELIZABETH NP Oct 13, 2024 12:21
[2024-10-13 12:26] LABS: ALBUMIN 2.9 g/dL (3.5-5.0); BILIRUBIN,TOTAL 0.4 mg/dL (0.2-1.0); CREATININE 1.8 mg/dL (0.5-1.3); POTASSIUM 4.9 mmol/L (3.5-5.1); TOTAL PROTEIN, SERUM 7.6 g/dL (6.0-8.3)
--- NOTE | 2024-10-13 20:48 | NUR ---
NOTE PAGED HOSPITALIST LOADING UNIT TOOL SETTER, MADE ALFREDO DEMARCO RELEASE AND TECHNICAL RECORDS CLERK AWARE PT WITH RANDOM GLUCOSE 550. PER ALFREDO FOLLOW SLIDING SCALE PROTOCOL.
--- NOTE | 2024-10-13 20:58 | NUR ---
NOTE PATIENT COUNSELED ON DM DIET, ASKED PATIENT TO ONLY EAT WHAT IS GIVEN TO HIM AT MEAL TIMES. PER PATIENT HAS NOT CONSUMED ANY OTHER FOODS. PATIENT WAS NOTED EATING COOKIES AND DRINKING COFFEE.
[2024-10-13] MEDS ORDERED: INSULIN GLARgine 100 UNITS/ML 10 ML VIAL SQ SCH (21:00)
[2024-10-13] MEDS: DOXYCYCLINE HYCLATE 100 MG TABLET PO SCH (21:18)
[2024-10-13] MEDS: INSULIN GLARgine 100 UNITS/ML 10 ML VIAL SQ SCH (21:21)
[2024-10-14] VITALS (8 sets, daily range): BP systolic 111–151; BP diastolic 53–77; PULSE 66–81; RESP 17–20; TEMP 97.7–98.3; O2SAT 98–99
[2024-10-14] MEDS: furoSEMIDE 20 MG TABLET PO SCH (10:33)
--- NOTE | 2024-10-14 11:13 | PN ---
[facility] PROGRESS NOTE Date of Service: Oct 14, 2024 Time of Service: 11:07 SUBJECTIVE: [ ] admission date: 10/10/24 PCP: Ada Graves chief complaint: bilateral lower ext pain, redness, subjective Fevers This is a 54-year-old with a significant medical history of diabetes, hypertension and morbid obesity presents in ER with chief complaints of lower extremity pain and open nonhealing ulcers. Onset: ulcers for one month; report was seen in ED a month ago and was sent with oral antibiotics severity severe, aggravating factors: Pain aggravated by standing alleviating factors: None Associated symptoms: subjective Fever and Chills. patient recently went to [facility] with his PCP and was prescribed oral antibiotics he reports ulcers getting worse and decided to come to ED for further evaluation and treatment 10/11/24 The patient seen and examined : reviewed chart: the patient developed a rash to bilateral forearms: itching reported anti histamine was given x1 dose. deck specialist on board. Patient's blood sugars are elevated patient is on home regimen Lantus 100 unit SQ BID will resumed; He is currently on slidi ng scale we will start him on t.i.d. a.c. regular insulin 5 units discussed that his A1c was 11.8 goal to keep his blood sugar below < 200. 10/12/24 patient was seen earlier in examined reviewed case discussed with attending. Review labs blood sugars are much controlled now. Creatinine improving. Edematous to lower extremity improving as well with diuretics. Encourage patient to ambulate in room keep lower extremities elevated while sitting in chair. Denied chest pain or shortness of breath 10/13/24 patient is seen and examined. Patient reports no apparently he has been refusing vancomycin. Therefore, we will start him on doxycycline 100 p.o. patient continues with local wound care wound cultures negative. Patient continues with elevated blood sugars; review home medication patient's Lantus in the morning is 50 units at bedtime 30 therefore we will resume a.m.. 10/14/24 patient is seen and examined earlier reviewed chart. patient continues with edematous to lower extremity; Lasix were changed to p.o. yesterday. We will get a 2D echo. The patient reports his PCP: DR Star mariano i instructed the patient the importance to be complaince with medications and with follow up appointment to [facility] DM uncontrolled with insulin regiment; and CRF. Patient verbalized understanding. We will wait for 2D echo REVIEW OF SYSTEMS CONSTITUTIONAL: Denies fevers, chills, or night sweats. No unintentional weight loss reported. NEUROLOGICAL: Denies headache, amaurosis fugax, motor weakness, sensory deficit, vertigo/spinning sensation, gait abnormalities, or tremors. ENT: No hearing loss, otalgia, otorrhea, rhinitis, rhinorrhea, hoarseness, or sore throat. CARDIOVASCULAR: Denies any exertional angina, dyspnea on exertion, orthopnea, paroxysmal nocturnal dyspnea, palpitations, life-threatening arrhythmias, claudication. PULMONARY: Denies any shortness of breath, cough, phlegm/sputum, hemoptysis, pleuritic chest pain. SLEEP: Denies morning headaches, daytime somnolence or napping. Denies difficulty falling asleep, staying asleep, waking from sleep. Denies knowledge of snoring. GASTROINTESTINAL: Denies any type of dysphagia to either liquids or solids. Denies nausea, vomiting, pyrosis, early satiety, abdominal pain, diarrhea, constipation, or changes in stool consistency or caliber. Denies coffee-ground emesis, hematemesis, hematochezia, or melanotic stools. GENITOURINARY: Denies frequency, urgency, nocturia, hematuria or incontinence (Storage/Irritative symptoms.) Low urinary stream, straining to void, urinary intermittency or hesitancy, splitting of the voiding stream, terminal dribbling. ENDOCRINOLOGIC: Denies polyuria, polydipsia, polyphagia or heat/cold intolerances. HEMATOLOGIC: Denies thrombophilia/previous clots, or coagulopathy/bleeding disorders. ONCOLOGIC: Denies personal history of malignancy. DERMATOLOGIC: Denies rashes or pruritus. PSYCHIATRIC: Denies any suicidal or homicidal ideation. Denies hallucinations. PHYSICAL EXAM GENERAL APPEARANCE: The patient is awake, alert, and oriented, in no acute cardiopulmonary distress. NEUROLOGICAL: Cranial nerves II-XII grossly intact. Motor is 5/5 in bilateral upper and lower extremities proximal to distal. No sensory deficits. HEENT: Face is symmetric. Pupils are equal and reactive. Extraocular movements are intact. NECK: Supple. No JVD. No thyromegaly. No submental, submandibular, pre-/postauricular, occipital or supraclavicular lymphadenopathy. CHEST: Normal chest expansion. No Telemetry. LUNGS: Absence of any rales, rhonchi or any wheezing. CARDIOVASCULAR: Regular. S1 and S2 normal. No appreciable rubs, murmurs or gallops. ABDOMEN: Soft, nontender, and nondistended. There is no rebound, voluntary guarding, or rigidity. : Deferred. No Sullivan. EXTREMITIES: Non-edematous and not cyanotic. No clubbing. Good capillary refill. SKIN: several wound to left leg: oozing. +1 edema bilateral lower ext. Vital Signs (last 8hr) Date Time Temp Pulse Resp B/P (MAP) Pulse Ox O2 Delivery O2 Flow Rate FiO2 10/14/24 08:00 99 Room Air* 0 21 10/14/24 07:59 97.7 71 18 111/62 98 Room Air 10/14/24 04:00 98.1 71 17 117/53 96 Room Air LABS: Laboratory: Test 10/14/24 05:20 10/13/24 19:43 10/13/24 19:26 10/13/24 15:43 Range/Units Whole Blood Glucose 166 #H 70-110 MG/DL Random Glucose 550 *H 70-105 mg/dL Bedside Glucose Comment Notified Nurse Bedside Glucose #2 Comment Stat Lab Glu Request Test 10/13/24 11:53 10/13/24 07:30 Range/Units White Blood Count 13.2 H 4.8-10.8 K/uL Red Blood Count 5.16 4.50-6.20 MIL/uL Hemoglobin 14.7 14.0-18.0 g/dL Hematocrit 44.5 42-54 % Mean Corpuscular Volume 86.2 79-99 fL Mean Corpuscular Hemoglobin 28.5 27.0-33.0 pg Mean Corpuscular Hemoglobin Concent 33.0 32.0-36.0 g/dL Red Cell Distribution Width 12.7 11.0-15.5 % Platelet Count 262 130-400 K/uL Mean Platelet Volume 8.7 7.5-10.5 fL Immature Granulocyte % (Auto) 0.8 0-1 % Neutrophils (%) (Auto) 94.1 H 40.0-77.0 % Lymphocytes (%) (Auto) 4.3 L 21.0-51.0 % Monocytes (%) (Auto) 0.6 L 3.0-13.0 % Eosinophils (%) (Auto) 0.0 0.0-8.0 % Basophils (%) (Auto) 0.2 0.0-5.0 % Neutrophils # (Auto) 12.4 H 1.8-7.7 K/uL Lymphocytes # (Auto) 0.6 L 1.0-4.8 K/uL Monocytes # (Auto) 0.1 0.1-1.0 K/uL Eosinophils # (Auto) 0.00 0.00-0.70 K/uL Basophils # (Auto) 0.03 0.00-0.20 K/uL Absolute Immature Granulocyte (auto 0.10 0-1 K/uL Nucleated Red Blood Cells 0.0 0.0-0.19 % White Cell Morphology Comment See comments Sodium Level 134 L 136-145 mmol/L Potassium Level 4.9 3.5-5.1 mmol/L Chloride Level 97 L 101-111 mmol/L Carbon Dioxide Level 30 21-32 mmol/L Blood Urea Nitrogen 26 H 7-18 mg/dL Creatinine 1.8 H 0.5-1.3 mg/dL Glomerular Filtration Rate Calc 44 >90 mL/min Total Calcium 9.1 8.5-10.1 mg/dL Magnesium Level 2.00 1.80-2.40 mg/dL Total Bilirubin 0.4 0.2-1.0 mg/dL Aspartate Amino Transf (AST/SGOT) 22 10-37 U/L Alanine Aminotransferase (ALT/SGPT) 38 12-78 U/L Alkaline Phosphatase 98 50-136 U/L Total Protein 7.6 6.0-8.3 g/dL Albumin 2.9 L 3.5-5.0 g/dL Vancomycin Level Trough 10.2 10.0-20.0 UG/ML Current Medications Medications (Trade) Dose Ordered Sig/Nico Route PRN Reason Start Time Stop Time Status Last Admin Dose Admin Acetaminophen (TYLenol 325MG TAB) 650 mg Q4H PRN PO TEMPERATURE GREATER THAN 101.5 10/10/24 06:30 11/09/24 06:29 10/13/24 09:41 650 MG Acetaminophen/ Hydrocodone Bitart (NORco 5/325MG) 1 tab Q4H PRN PO MODERATE PAIN (4-6) 10/10/24 06:30 10/15/24 06:29 10/11/24 23:04 1 TAB Amlodipine Besylate (NorvASC 5MG TAB) 5 mg DAILY PO 10/10/24 09:00 11/09/24 08:59 10/14/24 10:33 5 MG Diphenhydramine HCl (BENAdryl CAP) 25 mg Q8H PRN PO ITCHING 10/12/24 14:30 11/11/24 14:29 10/13/24 13:19 25 MG Doxycycline Hyclate (Doxycycline Hyclate) 100 mg BID PO 10/13/24 21:00 10/23/24 20:59 10/14/24 10:33 100 MG Epinephrine HCl (ADRENaline PF 1MG AMP) 0.3 mg ONCE STAT SQ 10/13/24 00:23 10/13/24 00:31 DC 10/13/24 00:46 0.3 MG Famotidine (Pepcid 20mg Vial) 20 mg ONCE STAT IV 10/13/24 00:23 10/13/24 00:29 DC 10/13/24 00:45 20 MG Famotidine (Pepcid 20mg Tab) 20 mg DAILY PO 10/10/24 09:00 11/09/24 08:59 10/14/24 10:33 20 MG Furosemide (LASix 20MG TAB) 20 mg DAILY PO 10/14/24 09:00 11/13/24 08:59 10/14/24 10:33 20 MG Furosemide (LASix 20MG TAB) 20 mg Q12H PO 10/11/24 12:00 10/13/24 12:21 DC 10/13/24 12:06 20 MG Heparin Sodium (Porcine) (HEParin 5,000 UNIT VIAL) 5,000 unit Q12H SQ 10/10/24 10:00 11/09/24 09:59 10/13/24 22:11 5,000 UNIT Hydralazine HCl (APRESOLine 20MG INJ) 5 mg Q4H PRN IV ADMINISTER FOR SBP > 160 10/10/24 06:30 11/09/24 06:29 Hydrocortisone (corTRIsone 1% CREAM) 1 APPL BID TP 10/11/24 21:00 11/10/24 20:59 10/14/24 10:42 1 APPL Insulin Glargine (LANtus 100 UNITS/ML 10 ML VIAL) 30 units HS SQ 10/11/24 21:00 10/13/24 12:13 DC 10/12/24 21:00 30 UNITS Insulin Glargine (LANtus 100 UNITS/ML 10 ML VIAL) 35 units HS SQ 10/13/24 21:00 10/13/24 12:21 DC Insulin Glargine (LANtus 100 UNITS/ML 10 ML VIAL) 50 units HS SQ 10/13/24 21:00 11/12/24 20:59 10/13/24 21:21 50 UNITS Insulin Glargine (LANtus 100 UNITS/ML 10 ML VIAL) 100 units BID SQ 10/11/24 21:00 10/11/24 11:53 DC Insulin Human Regular (humuLIN R 100 UNIT/ML 3ML) INSULIN SLIDING SCAL... ACHS SQ 10/10/24 07:30 10/11/24 20:31 DC 10/11/24 18:21 14 UNIT Insulin Human Regular (humuLIN R 100 UNIT/ML 3ML) INSULIN SLIDING SCAL... ACHS SQ 10/11/24 21:00 11/10/24 20:59 10/14/24 06:17 4 UNIT Lactulose (Constulose 20gm/ 30ml Udcup) 20 gm BID PRN PO CONSTIPATION 10/11/24 12:00 11/10/24 11:59 Magnesium Sulfate 50 ml @ 0 mls/hr PROTOCOL PRN IV low mag level 10/10/24 06:30 11/09/24 06:29 Methylprednisolone Sodium Succinate (Solu-medROL 125MG) 125 mg ONCE STAT IVP 10/13/24 00:23 10/13/24 00:29 DC 10/13/24 00:45 125 MG Miscellaneous Medication (Insulin Glargine,Hum.rec.anlog (Lantus Solostar)) 30 unit HS SQ 10/11/24 21:00 10/11/24 12:00 DC Piperacillin Sod/ Tazobactam Sod (Zosyn 3.375gm+NS 50ml) 3.375 gm Q8H IV 10/10/24 06:00 10/13/24 00:26 DC 10/12/24 22:05 3.375 GM Potassium Chloride 100 ml @ 100 mls/hr AD PRN IV POTASSIUM PROTOCOL 10/10/24 06:30 11/09/24 06:29 Potassium Chloride (K-Dur/Klor-Con 20meq) 20 meq AD PRN PO POTASSIUM PROTOCOL 10/10/24 06:30 11/09/24 06:29 Potassium Chloride (KCl 10% Elixir 20meq/15ml) 20 meq AD PRN PO POTASSIUM PROTOCOL 10/10/24 06:30 11/09/24 06:29 Sodium Chloride 1,000 ml @ 75 mls/hr [id number] IV 10/10/24 06:30 10/11/24 09:25 DC 10/10/24 07:30 75 MLS/HR Vancomycin HCl 250 ml @ 125 mls/hr Q24H IV 10/10/24 07:00 10/10/24 07:31 DC Vancomycin HCl 250 ml @ 125 mls/hr Q24H IV 10/11/24 08:00 10/21/24 07:59 10/12/24 08:52 125 MLS/HR Vancomycin HCl (Vancomycin Protocol) 1 each AD IV 10/10/24 06:30 10/24/24 06:29 Vancomycin HCl (Vancomycin 1g/ 250ml Kit) 1 gm Q12H IV 10/10/24 06:00 10/10/24 06:23 DC DIAGNOSTICS / RADIOLOGY: [ ] ASSESSMENT: Sirs without organ malfunction POA bilateral lower ext. cellulitis POA failed outpatient treatment: POA intractable pain bilateral lower ext. POA nonhealing DM ulcer to left lower ext infected POA Suspecting Venous insufficiency POA bilateral lower +2 edema POA JARED ATN POA Uncontrolled DM POA Morbid obesity POA noncompliance POA PLAN: [ ] admit: Medical surgical floor Abt's: renal dose pharmacy to dose: Vancomycin and Zosyn IV Heplock IVF's Consultants: advanced clinical specialist recommend hydrocortisone to rash. We will follow her recommendations on wound dressing. Wound cultures so far no growth. Blood cultures negative for two days. Pain management: Stafford 5/325 mg one tab q4 hr PRN DM: Ac.hs monitoring with SSRI coverage and long acting: Lantus 30 unit sq bedtime resume 50 units every a.m.. goal to keep flood sugar: < 200 Lasix 20 mg po daily. Leg elevation at all time HTN: Norvasc 5 mg po daily Echo to evaluated LV function avoid NSAIDS renal dose medications. Risk factors modification: weight management diet modified Labs: cbc, cmp and Mag+ Avoid NSAIDS strict I/O, PRN: MEDICATIONS Tylenol 650 mg po every 4 hrs for fever zofran 4 mg IV every 6 hrs for n/v Hydralazine 5 mg IV every 4 hrs systolic pressure > 160 Supportive measures: DVT ppx, GI ppx replace electrolytes as needed basis. all questions answered Supervising MD: Dr. Godoy c/d ATTESTATION BY PHYSICIAN I have seen and examined the patient. I reviewed the documentation, medical decision making, and treatment plan as noted by the mid-level provider above. I agree with the findings and plan of care. MILLIE GODOY MD, ELIZABETH NP Oct 14, 2024 11:13
[2024-10-14 12:07] LABS: CREATININE 1.4 mg/dL (0.5-1.3); POTASSIUM 4.6 mmol/L (3.5-5.1)
[2024-10-14 12:11] LABS: ALBUMIN 2.8 g/dL (3.5-5.0); BILIRUBIN,TOTAL 0.3 mg/dL (0.2-1.0); MAGNESIUM 2.1 mg/dL (1.80-2.40)
--- NOTE | 2024-10-14 16:17 | HMCSR ---
APPROVED REPORT EXAM: Two-dimensional and M-mode echocardiogram with Doppler and color Doppler. INDICATION ICD: Suspect congestive heart failure 2D Dimensions RVDd4.1 cmLVEF(%)61.8 (>50%)LVED Vol(simp.)120.0 mL IVSd0.8 (0.7-1.1cm)FS(%)33 %LVES Vol(simp.)44.9 mL LVDd5.1 (3.8-5.6cm)LVOT diam2.2 (1.8-2.4cm)LVEF(%, simp.)63 % LVDs3.4 (2.5-4.0cm)LA ESV INDEX (4CH)27.20 mL/m2 LA ESV INDEX (2CH)25.20 mL/m2 LA ESV INDEX (BP)24.20 mL/m2 Deformation Strain Apical 422.0 % Apical 221.0 % Apical 317.0 % Global Xbgvtc53.0 % M-Mode Dimensions EPSS0.9 cm LA (MM)5.1 (1.6-4.0cm) Ao Root(MM)2.7 (2.0-3.7cm) Aortic Valve AoV VTI0.4 mAo Mean GR6.0 mmHgLVOT VTI0.22 m CHARLES (VMAX)2.4 cm2AVA (VTI) 2.4 cm2 Mitral Valve MV E Vmax83.4 cm/sDECEL Anrl055 ms MV A Vmax34.0 cm/sP 1/2 T90 ms E/A ratio2.5MVA (PHT)2.4 cm2 TDI E/E' Medial9.4E/E' Lateral6.7 Medial E' Peak V8.90 cm/sLateral E' Peak V12.40 cm/s Pulmonary Valve PV Vmax1.3 m/s PV Peak GR6.9 mmHg Tricuspid Valve TR Vmax1.8 m/sRAP (EST) 8 ymOlFHJK65.2 mmHg TR Peak GR13.2 mmHg Left Ventricle The left ventricle is normal size. No regional wall motion abnormalities noted. Normal global strain of -20%. There is normal left ventricular wall thickness. LVEF is 60-65%. The left ventricular diasto lic function is normal. Right Ventricle The right ventricle is normal size. The right ventricular systolic function is normal. Atria The left atrium size is normal. The right atrium size is normal. Aortic Valve The aortic valve is normal in structure. No aortic regurgitation is present. There is no aortic valvu lar stenosis. Mitral Valve The mitral valve is normal in structure. There is no mitral valve regurgitation noted. There is no mi tral valve stenosis. Tricuspid Valve The tricuspid valve is normal in structure. There is trace of tricuspid valve regurgitation noted. Pulmonic Valve The pulmonary valve is normal in structure. There is no pulmonic valvular regurgitation. Great Vessels The aortic root is normal in size. The IVC is normal in size and collapses <50% with inspiration. Pericardium There is no pericardial effusion. Other Information Quality : Fair Conclusion LVEF is 60-65%. No regional wall motion abnormalities noted. Normal global strain of -20%.
[2024-10-15] VITALS (9 sets, daily range): BP systolic 115–152; BP diastolic 54–88; PULSE 64–78; RESP 18–20; TEMP 97.5–98.7; O2SAT 97
--- NOTE | 2024-10-15 14:29 | PN ---
[facility] PROGRESS NOTE Date of Service: Oct 15, 2024 Time of Service: 14:13 SUBJECTIVE: [ ] admission date: 10/10/24 PCP: Ada Graves chief complaint: bilateral lower ext pain, redness, subjective Fevers This is a 54-year-old with a significant medical history of diabetes, hypertension and morbid obesity presents in ER with chief complaints of lower extremity pain and open nonhealing ulcers. Onset: ulcers for one month; report was seen in ED a month ago and was sent with oral antibiotics severity severe, aggravating factors: Pain aggravated by standing alleviating factors: None Associated symptoms: subjective Fever and Chills. patient recently went to [facility] with his PCP and was prescribed oral antibiotics he reports ulcers getting worse and decided to come to ED for further evaluation and treatment 10/11/24 The patient seen and examined : reviewed chart: the patient developed a rash to bilateral forearms: itching reported anti histamine was given x1 dose. clerk specialist on board. Patient's blood sugars are elevated patient is on home regimen Lantus 100 unit SQ BID will resumed; He is currently on slidi ng scale we will start him on t.i.d. a.c. regular insulin 5 units discussed that his A1c was 11.8 goal to keep his blood sugar below < 200. 10/12/24 patient was seen earlier in examined reviewed case discussed with attending. Review labs blood sugars are much controlled now. Creatinine improving. Edematous to lower extremity improving as well with diuretics. Encourage patient to ambulate in room keep lower extremities elevated while sitting in chair. Denied chest pain or shortness of breath 10/13/24 patient is seen and examined. Patient reports no apparently he has been refusing vancomycin. Therefore, we will start him on doxycycline 100 p.o. patient continues with local wound care wound cultures negative. Patient continues with elevated blood sugars; review home medication patient's Lantus in the morning is 50 units at bedtime 30 therefore we will resume a.m.. 10/14/24 patient is seen and examined earlier reviewed chart. patient continues with edematous to lower extremity; Lasix were changed to p.o. yesterday. We will get a 2D echo. The patient reports his PCP: DR Star mariano i instructed the patient the importance to be complaince with medications and with follow up appointment to [facility] DM uncontrolled with insulin regiment; and CRF. Patient verbalized understanding. We will wait for 2D echo 10/15/24 the patient was seen this morning at bedside and is alert and oriented to person, place, and time. Vital signs are stable. Morning glucose level was 78, showing significant improvement compared to prior days. Laboratory results are as follows: WBC 13.2, hemoglobin 14.7, platelets 262, sodium 140, potassium, creatinine 1.4, GFR 60. The patient remains on doxycycline. Vancomycin was discontinued due to a reported allergy. And consultation with Infectious Disease has been placed to determine the most appropriate antibiotic regimen. Blood culture are still pending, with no bacterial growth reported to date. Echocardiogram results to rule out congestive hear failure revealed a left ventricular ejection fraction of 60-65 %, with a normal global strain of -20%. The patient will remain under observation with continued monitoring of glucose levels and white blood cell count. Recommendation from the Infectious Disease consultation are pending. REVIEW OF SYSTEMS CONSTITUTIONAL: Denies fevers, chills, or night sweats. No unintentional weight loss reported. NEUROLOGICAL: Denies headache, amaurosis fugax, motor weakness, sensory deficit, vertigo/spinning sensation, gait abnormalities, or tremors. ENT: No hearing loss, otalgia, otorrhea, rhinitis, rhinorrhea, hoarseness, or sore throat. CARDIOVASCULAR: Denies any exertional angina, dyspnea on exertion, orthopnea, paroxysmal nocturnal dyspnea, palpitations, life-threatening arrhythmias, claudication. PULMONARY: Denies any shortness of breath, cough, phlegm/sputum, hemoptysis, pleuritic chest pain. SLEEP: Denies morning headaches, daytime somnolence or napping. Denies difficulty falling asleep, staying asleep, waking from sleep. Denies knowledge of snoring. GASTROINTESTINAL: Denies any type of dysphagia to either liquids or solids. Denies nausea, vomiting, pyrosis, early satiety, abdominal pain, diarrhea, constipation, or changes in stool consistency or caliber. Denies coffee-ground emesis, hematemesis, hematochezia, or melanotic stools. GENITOURINARY: Denies frequency, urgency, nocturia, hematuria or incontinence (Storage/Irritative symptoms.) Low urinary stream, straining to void, urinary intermittency or hesitancy, splitting of the voiding stream, terminal dribbling. ENDOCRINOLOGIC: Denies polyuria, polydipsia, polyphagia or heat/cold intolerances. HEMATOLOGIC: Denies thrombophilia/previous clots, or coagulopathy/bleeding disorders. ONCOLOGIC: Denies personal history of malignancy. DERMATOLOGIC: Denies rashes or pruritus. PSYCHIATRIC: Denies any suicidal or homicidal ideation. Denies hallucinations. PHYSICAL EXAM GENERAL APPEARANCE: The patient is awake, alert, and oriented, in no acute cardiopulmonary distress. NEUROLOGICAL: Cranial nerves II-XII grossly intact. Motor is 5/5 in bilateral upper and lower extremities proximal to distal. No sensory deficits. HEENT: Face is symmetric. Pupils are equal and reactive. Extraocular movements are intact. NECK: Supple. No JVD. No thyromegaly. No submental, submandibular, pre- /postauricular, occipital or supraclavicular lymphadenopathy. CHEST: Normal chest expansion. No Telemetry. LUNGS: Absence of any rales, rhonchi or any wheezing. CARDIOVASCULAR: Regular. S1 and S2 normal. No appreciable rubs, murmurs or gallops. ABDOMEN: Soft, nontender, and nondistended. There is no rebound, voluntary guarding, or rigidity. : Deferred. No Sullivan. EXTREMITIES: Non-edematous and not cyanotic. No clubbing. Good capillary refill. SKIN: several wound to left leg: oozing. +1 edema bilateral lower ext. Vital Signs (last 8hr) Date Time Temp Pulse Resp B/P (MAP) Pulse Ox O2 Delivery O2 Flow Rate FiO2 10/15/24 12:00 97.9 73 18 144/78 96 Room Air 10/15/24 09:00 97 Room Air* 0 21 10/15/24 08:00 97.5 77 18 152/88 97 Room Air LABS: Laboratory: Test 10/15/24 10:57 10/14/24 15:28 10/14/24 11:19 10/13/24 15:43 Range/Units Whole Blood Glucose 275 #H 70-110 MG/DL Bedside Glucose Comment Notified Nurse Sodium Level 140 136-145 mmol/L Potassium Level 4.6 3.5-5.1 mmol/L Chloride Level 101 101-111 mmol/L Carbon Dioxide Level 33 H 21-32 mmol/L Blood Urea Nitrogen 30 H 7-18 mg/dL Creatinine 1.4 H 0.5-1.3 mg/dL Glomerular Filtration Rate Calc 60 >90 mL/min Random Glucose 221 #H 70-105 mg/dL Total Calcium 9.2 8.5-10.1 mg/dL Magnesium Level 2.10 1.80-2.40 mg/dL Total Bilirubin 0.3 # 0.2-1.0 mg/dL Aspartate Amino Transf (AST/SGOT) 26 10-37 U/L Alanine Aminotransferase (ALT/SGPT) 36 12-78 U/L Alkaline Phosphatase 86 50-136 U/L Total Protein 7.0 6.0-8.3 g/dL Albumin 2.8 L 3.5-5.0 g/dL Bedside Glucose #2 Comment Stat Lab Glu Request Current Medications Medications (Trade) Dose Ordered Sig/Nico Route PRN Reason Start Time Stop Time Status Last Admin Dose Admin Acetaminophen (TYLenol 325MG TAB) 650 mg Q4H PRN PO TEMPERATURE GREATER THAN 101.5 10/10/24 06:30 11/09/24 06:29 10/15/24 11:16 650 MG Acetaminophen/ Hydrocodone Bitart (NORco 5/325MG) 1 tab Q4H PRN PO MODERATE PAIN (4-6) 10/10/24 06:30 10/15/24 06:29 DC 10/11/24 23:04 1 TAB Amlodipine Besylate (NorvASC 5MG TAB) 5 mg DAILY PO 10/10/24 09:00 11/09/24 08:59 10/15/24 08:36 5 MG Diphenhydramine HCl (BENAdryl CAP) 25 mg Q8H PRN PO ITCHING 10/12/24 14:30 11/11/24 14:29 10/14/24 17:22 25 MG Doxycycline Hyclate (Doxycycline Hyclate) 100 mg BID PO 10/13/24 21:00 10/23/24 20:59 10/15/24 08:35 100 MG Epinephrine HCl (ADRENaline PF 1MG AMP) 0.3 mg ONCE STAT SQ 10/13/24 00:23 10/13/24 00:31 DC 10/13/24 00:46 0.3 MG Famotidine (Pepcid 20mg Vial) 20 mg ONCE STAT IV 10/13/24 00:23 10/13/24 00:29 DC 10/13/24 00:45 20 MG Famotidine (Pepcid 20mg Tab) 20 mg DAILY PO 10/10/24 09:00 11/09/24 08:59 10/15/24 08:35 20 MG Furosemide (LASix 20MG TAB) 20 mg DAILY PO 10/14/24 09:00 11/13/24 08:59 10/15/24 08:36 20 MG Furosemide (LASix 20MG TAB) 20 mg Q12H PO 10/11/24 12:00 10/13/24 12:21 DC 10/13/24 12:06 20 MG Heparin Sodium (Porcine) (HEParin 5,000 UNIT VIAL) 5,000 unit Q12H SQ 10/10/24 10:00 11/09/24 09:59 10/15/24 09:44 5,000 UNIT Hydralazine HCl (APRESOLine 20MG INJ) 5 mg Q4H PRN IV ADMINISTER FOR SBP > 160 10/10/24 06:30 11/09/24 06:29 Hydrocortisone (corTRIsone 1% CREAM) 1 APPL BID TP 10/11/24 21:00 11/10/24 20:59 10/15/24 08:36 1 APPL Insulin Glargine (LANtus 100 UNITS/ML 10 ML VIAL) 30 units HS SQ 10/11/24 21:00 10/13/24 12:13 DC 10/12/24 21:00 30 UNITS Insulin Glargine (LANtus 100 UNITS/ML 10 ML VIAL) 35 units HS SQ 10/13/24 21:00 10/13/24 12:21 DC Insulin Glargine (LANtus 100 UNITS/ML 10 ML VIAL) 50 units HS SQ 10/13/24 21:00 11/12/24 20:59 10/14/24 20:53 50 UNITS Insulin Glargine (LANtus 100 UNITS/ML 10 ML VIAL) 100 units BID SQ 10/11/24 21:00 10/11/24 11:53 DC Insulin Human Regular (humuLIN R 100 UNIT/ML 3ML) INSULIN SLIDING SCAL... ACHS SQ 10/10/24 07:30 10/11/24 20:31 DC 10/11/24 18:21 14 UNIT Insulin Human Regular (humuLIN R 100 UNIT/ML 3ML) INSULIN SLIDING SCAL... ACHS SQ 10/11/24 21:00 11/10/24 20:59 10/15/24 11:38 12 UNIT Lactulose (Constulose 20gm/ 30ml Udcup) 20 gm BID PRN PO CONSTIPATION 10/11/24 12:00 11/10/24 11:59 Magnesium Sulfate 50 ml @ 0 mls/hr PROTOCOL PRN IV low mag level 10/10/24 06:30 11/09/24 06:29 Methylprednisolone Sodium Succinate (Solu-medROL 125MG) 125 mg ONCE STAT IVP 10/13/24 00:23 10/13/24 00:29 DC 10/13/24 00:45 125 MG Miscellaneous Medication (Insulin Glargine,Hum.rec.anlog (Lantus Solostar)) 30 unit HS SQ 10/11/24 21:00 10/11/24 12:00 DC Piperacillin Sod/ Tazobactam Sod (Zosyn 3.375gm+NS 50ml) 3.375 gm Q8H IV 10/10/24 06:00 10/13/24 00:26 DC 10/12/24 22:05 3.375 GM Potassium Chloride 100 ml @ 100 mls/hr AD PRN IV POTASSIUM PROTOCOL 10/10/24 06:30 11/09/24 06:29 Potassium Chloride (K-Dur/Klor-Con 20meq) 20 meq AD PRN PO POTASSIUM PROTOCOL 10/10/24 06:30 11/09/24 06:29 Potassium Chloride (KCl 10% Elixir 20meq/15ml) 20 meq AD PRN PO POTASSIUM PROTOCOL 10/10/24 06:30 11/09/24 06:29 Sodium Chloride 1,000 ml @ 75 mls/hr [id number] IV 10/10/24 06:30 10/11/24 09:25 DC 10/10/24 07:30 75 MLS/HR Vancomycin HCl 250 ml @ 125 mls/hr Q24H IV 10/10/24 07:00 10/10/24 07:31 DC Vancomycin HCl 250 ml @ 125 mls/hr Q24H IV 10/11/24 08:00 10/14/24 11:53 DC 10/12/24 08:52 125 MLS/HR Vancomycin HCl (Vancomycin Protocol) 1 each AD IV 10/10/24 06:30 10/14/24 11:53 DC Vancomycin HCl (Vancomycin 1g/ 250ml Kit) 1 gm Q12H IV 10/10/24 06:00 10/10/24 06:23 DC DIAGNOSTICS / RADIOLOGY: PATIENT: SHAD OSORIO MR#: [id number] : 1970 SEX: M AGE: 54 LOCATION: [facility]BH ORDER 1107 STATUS: ADM IN REPORT#: [id number] SERVICE 1106 REASON: suspecting chf ORDERING PHYSICIAN: MESHA BROWER NP PROCEDURE: ECHO CMP - ECHO 2-D COMPLETE APPROVED REPORT EXAM: Two-dimensional and M-mode echocardiogram with Doppler and color Doppler. INDICATION ICD: Suspect congestive heart failure 2D Dimensions RVDd 4.1 cm LVEF(%) 61.8 (>50%) LVED Vol(simp.) 120.0 mL IVSd 0.8 (0.7-1.1cm) FS(%) 33 % LVES Vol(simp.) 44.9 mL LVDd 5.1 (3.8-5.6cm) LVOT diam 2.2 (1.8-2.4cm) LVEF(%, simp.) 63 % LVDs 3.4 (2.5-4.0cm) LA ESV INDEX (4CH) 27.20 mL/m2 LA ESV INDEX (2CH) 25.20 mL/m2 LA ESV INDEX (BP) 24.20 mL/m2 Deformation Strain Apical 4 22.0 % Apical 2 21.0 % Apical 3 17.0 % Global Strain 20.0 % M-Mode Dimensions EPSS 0.9 cm LA (MM) 5.1 (1.6-4.0cm) Ao Root(MM) 2.7 (2.0-3.7cm) Aortic Valve AoV VTI 0.4 m Ao Mean GR 6.0 mmHg LVOT VTI 0.22 m CHARLES (VMAX) 2.4 cm2 CHARLES (VTI) 2.4 cm2 Mitral Valve MV E Vmax 83.4 cm/s DECEL Time 162 ms MV A Vmax 34.0 cm/s P 1/2 T 90 ms E/A ratio 2.5 MVA (PHT) 2.4 cm2 TDI E/E' Medial 9.4 E/E' Lateral 6.7 Medial E' Peak V 8.90 cm/s Lateral E' Peak V 12.40 cm/s Pulmonary Valve PV Vmax 1.3 m/s PV Peak GR 6.9 mmHg Tricuspid Valve TR Vmax 1.8 m/s RAP (EST) 8 mmHg RVSP 21.2 mmHg TR Peak GR 13.2 mmHg Left Ventricle The left ventricle is normal size. No regional wall motion abnormalities noted. Normal global strain of -20%. There is normal left ventricular wall thickness. LVEF is 60-65%. The left ventricular diastolic function is normal. Right Ventricle The right ventricle is normal size. The right ventricular systolic function is normal. Atria The left atrium size is normal. The right atrium size is normal. Aortic Valve The aortic valve is normal in structure. No aortic regurgitation is present. There is no aortic valvular stenosis. Mitral Valve The mitral valve is normal in structure. There is no mitral valve regurgitation noted. There is no mitral valve stenosis. Tricuspid Valve The tricuspid valve is normal in structure. There is trace of tricuspid valve regurgitation noted. Pulmonic Valve The pulmonary valve is normal in structure. There is no pulmonic valvular regurgitation. Great Vessels The aortic root is normal in size. The IVC is normal in size and collapses <50% with inspiration. Pericardium There is no pericardial effusion. Other Information Quality : Fair Conclusion LVEF is 60-65%. No regional wall motion abnormalities noted. Normal global strain of -20%. DICTATED BY: EUFEMIA DORSEY MD DATE: 10/14/24 1222 ELECTRONICALLY SIGNED BY: EUFEMIA DORSEY MD DATE: 10/14/24 1617 ASSESSMENT: Sirs without organ malfunction POA bilateral lower ext. cellulitis POA failed outpatient treatment: POA intractable pain bilateral lower ext. POA nonhealing DM ulcer to left lower ext infected POA Suspecting Venous insufficiency POA bilateral lower +2 edema POA JARED ATN POA Uncontrolled DM POA Morbid obesity POA noncompliance POA 2D Echocardiogram LVEF is 60-65%. No regional wall motion abnormalities noted. Normal global strain of -20%. PLAN: admit: Medical surgical floor Abt's: renal dose pharmacy to dose:Discontinue Vancomycin and Zosyn IV, starts doxycycline. Infectious Disease consult pending. [facility]'s Consultants: collateral specialist recommend hydrocortisone to rash. We will follow her recommendations on wound dressing. Wound cultures so far no growth. Blood cultures negative for two days. Pain management: Reading 5/325 mg one tab q4 hr PRN DM: Ac.hs monitoring with SSRI coverage and long acting: Lantus 30 unit sq bedtime resume 50 units every a.m.. goal to keep flood sugar: < 200 Lasix 20 mg po daily. Leg elevation at all time HTN: Norvasc 5 mg po daily Echo to evaluated LV function avoid NSAIDS renal dose medications. Risk factors modification: weight management diet modified Labs: cbc, cmp and Mag+ Avoid NSAIDS strict I/O, PRN: MEDICATIONS Tylenol 650 mg po every 4 hrs for fever zofran 4 mg IV every 6 hrs for n/v Hydralazine 5 mg IV every 4 hrs systolic pressure > 160 Supportive measures: DVT ppx, GI ppx replace electrolytes as needed basis. all questions answered ATTESTATION BY PHYSICIAN I have seen and examined the patient. I reviewed the documentation, medical decision making, and treatment plan as noted by the resident provider above. I agree with the findings and plan of care. Astrid Jamison MD, GERARDO MD Oct 15, 2024 14:29
--- NOTE | 2024-10-15 15:10 | NUR ---
Dr. Karlo duffy, informed of consult.
[2024-10-16] VITALS (7 sets, daily range): BP systolic 112–157; BP diastolic 66–81; PULSE 74–85; RESP 18–20; TEMP 98–98.6; O2SAT 95–98
[2024-10-16 04:49] LABS: BASOPHILS # (AUTO) 0.14 K/uL (0.00-0.20); HEMATOCRIT 40.9 % (42-54); IMMATURE GRANULOCYTE ABSOLUTE 0.13 K/uL (0-1); LYMPHOCYTES # (AUTO) 3.1 K/uL (1.0-4.8); LYMPHOCYTES % (AUTO) 22.1 % (21.0-51.0); MEAN CORPUSCULAR HEMOGLOBIN 28.1 pg (27.0-33.0); MEAN CORPUSCULAR VOLUME 85.2 fL (79-99); MONOCYTES # (AUTO) 1.3 K/uL (0.1-1.0); MONOCYTES % (AUTO) 9.4 % (3.0-13.0); NEUTROPHILS # (AUTO) 8.6 K/uL (1.8-7.7); NEUTROPHILS % (AUTO) 61.6 % (40.0-77.0); PLATELET COUNT (AUTO) 262 K/uL (130-400)
[2024-10-16 05:18] LABS: ALBUMIN 2.6 g/dL (3.5-5.0); BILIRUBIN,TOTAL 0.3 mg/dL (0.2-1.0); CREATININE 1.4 mg/dL (0.5-1.3); POTASSIUM 4.3 mmol/L (3.5-5.1); TOTAL PROTEIN, SERUM 6.4 g/dL (6.0-8.3)
[2024-10-16] MEDS ORDERED: ceFEPime HCL 1 GM VIAL IVPB SCH (12:00)
[2024-10-16] MEDS: ZYVOX 600 MG TAB PO SCH (12:40)
[2024-10-16 13:41] LABS: INR 0.97 (0.85-1.15); PROTHROMBIN TIME 10.9 SEC (9.6-11.6)
--- NOTE | 2024-10-16 15:13 | NUR ---
[facility] Follow-up: Patient re-assessed by wound healing team. See wound assessment. Assessment and recommendations provided to primary nurse. Education provided. Wound care done. Addendum: 10/17/24 at 1543 by JOSÉ LUIS MORSE RN RN/ Amended: Links added.
--- NOTE | 2024-10-16 15:27 | PN ---
[facility] PROGRESS NOTE Date of Service: Oct 16, 2024 Time of Service: 15:19 SUBJECTIVE: [ ] admission date: 10/10/24 PCP: Ada Graves chief complaint: bilateral lower ext pain, redness, subjective Fevers This is a 54-year-old with a significant medical history of diabetes, hypertension and morbid obesity presents in ER with chief complaints of lower extremity pain and open nonhealing ulcers. Onset: ulcers for one month; report was seen in ED a month ago and was sent with oral antibiotics severity severe, aggravating factors: Pain aggravated by standing alleviating factors: None Associated symptoms: subjective Fever and Chills. patient recently went to [facility] with his PCP and was prescribed oral antibiotics he reports ulcers getting worse and decided to come to ED for further evaluation and treatment 10/11/24 The patient seen and examined : reviewed chart: the patient developed a rash to bilateral forearms: itching reported anti histamine was given x1 dose. sharepoint specialist on board. Patient's blood sugars are elevated patient is on home regimen Lantus 100 unit SQ BID will resumed; He is currently on slidi ng scale we will start him on t.i.d. a.c. regular insulin 5 units discussed that his A1c was 11.8 goal to keep his blood sugar below < 200. 10/12/24 patient was seen earlier in examined reviewed case discussed with attending. Review labs blood sugars are much controlled now. Creatinine improving. Edematous to lower extremity improving as well with diuretics. Encourage patient to ambulate in room keep lower extremities elevated while sitting in chair. Denied chest pain or shortness of breath 10/13/24 patient is seen and examined. Patient reports no apparently he has been refusing vancomycin. Therefore, we will start him on doxycycline 100 p.o. patient continues with local wound care wound cultures negative. Patient continues with elevated blood sugars; review home medication patient's Lantus in the morning is 50 units at bedtime 30 therefore we will resume a.m.. 10/14/24 patient is seen and examined earlier reviewed chart. patient continues with edematous to lower extremity; Lasix were changed to p.o. yesterday. We will get a 2D echo. The patient reports his PCP: DR Star mariano i instructed the patient the importance to be complaince with medications and with follow up appointment to [facility] DM uncontrolled with insulin regiment; and CRF. Patient verbalized understanding. We will wait for 2D echo 10/15/24 the patient was seen this morning at bedside and is alert and oriented to person, place, and time. Vital signs are stable. Morning glucose level was 78, showing significant improvement compared to prior days. Laboratory results are as follows: WBC 13.2, hemoglobin 14.7, platelets 262, sodium 140, potassium, creatinine 1.4, GFR 60. The patient remains on doxycycline. Vancomycin was discontinued due to a reported allergy. And consultation with Infectious Disease has been placed to determine the most appropriate antibiotic regimen. Blood culture are still pending, with no bacterial growth reported to date. Echocardiogram results to rule out congestive hear failure revealed a left ventricular ejection fraction of 60-65 %, with a normal global strain of -20%. The patient will remain under observation with continued monitoring of glucose levels and white blood cell count. Recommendation from the Infectious Disease consultation are pending. 10/16/24 the patient was seen at the bedside and is alert and oriented to person, place, and time. Vital signs are stable. Laboratory results: Sodium 141, potassium 4.3, creatinine 1.4, GFR 112, WBC 14previously 13.2, indicating an upward trend, glucose 112 slightly stability. The Infectious Disease team evaluated the patient and recommended discontinue doxycycline. The patient was started on cefepime and linezolid, and a PICC line was ordered to initiate IV antibiotic therapy. The patient will remain under observation, and care we will proceed per Infectious Disease recommendations. REVIEW OF SYSTEMS CONSTITUTIONAL: Denies fevers, chills, or night sweats. No unintentional weight loss reported. NEUROLOGICAL: Denies headache, amaurosis fugax, motor weakness, sensory deficit, vertigo/spinning sensation, gait abnormalities, or tremors. ENT: No hearing loss, otalgia, otorrhea, rhinitis, rhinorrhea, hoarseness, or sore throat. CARDIOVASCULAR: Denies any exertional angina, dyspnea on exertion, orthopnea, paroxysmal nocturnal dyspnea, palpitations, life-threatening arrhythmias, claudication. PULMONARY: Denies any shortness of breath, cough, phlegm/sputum, hemoptysis, pleuritic chest pain. SLEEP: Denies morning headaches, daytime somnolence or napping. Denies difficulty falling asleep, staying asleep, waking from sleep. Denies knowledge of snoring. GASTROINTESTINAL: Denies any type of dysphagia to either liquids or solids. Denies nausea, vomiting, pyrosis, early satiety, abdominal pain, diarrhea, constipation, or changes in stool consistency or caliber. Denies coffee-ground emesis, hematemesis, hematochezia, or melanotic stools. GENITOURINARY: Denies frequency, urgency, nocturia, hematuria or incontinence (Storage/Irritative symptoms.) Low urinary stream, straining to void, urinary intermittency or hesitancy, splitting of the voiding stream, terminal dribbling. ENDOCRINOLOGIC: Denies polyuria, polydipsia, polyphagia or heat/cold intolerances. HEMATOLOGIC: Denies thrombophilia/previous clots, or coagulopathy/bleeding disorders. ONCOLOGIC: Denies personal history of malignancy. DERMATOLOGIC: Denies rashes or pruritus. PSYCHIATRIC: Denies any suicidal or homicidal ideation. Denies hallucinations. PHYSICAL EXAM GENERAL APPEARANCE: The patient is awake, alert, and oriented, in no acute cardiopulmonary distress. NEUROLOGICAL: Cranial nerves II-XII grossly intact. Motor is 5/5 in bilateral upper and lower extremities proximal to distal. No sensory deficits. HEENT: Face is symmetric. Pupils are equal and reactive. Extraocular movements are intact. NECK: Supple. No JVD. No thyromegaly. No submental, submandibular, pre- /postauricular, occipital or supraclavicular lymphadenopathy. CHEST: Normal chest expansion. No Telemetry. LUNGS: Absence of any rales, rhonchi or any wheezing. CARDIOVASCULAR: Regular. S1 and S2 normal. No appreciable rubs, murmurs or gallops. ABDOMEN: Soft, nontender, and nondistended. There is no rebound, voluntary guarding, or rigidity. : Deferred. No Sullivan. EXTREMITIES: Non-edematous and not cyanotic. No clubbing. Good capillary refill. SKIN: several wound to left leg: oozing. +1 edema bilateral lower ext. Vital Signs (last 8hr) Date Time Temp Pulse Resp B/P (MAP) Pulse Ox O2 Delivery O2 Flow Rate FiO2 10/16/24 11:38 98.4 76 18 116/66 97 Room Air 10/16/24 09:00 98 Room Air* 0 21 10/16/24 08:00 98.6 85 18 112/71 95 Room Air LABS: Laboratory: Test 10/16/24 13:10 10/16/24 11:21 10/16/24 04:30 10/14/24 15:28 Range/Units Prothrombin Time 10.9 9.6-11.6 SEC Prothromb Time International Ratio 0.97 0.85-1.15 Whole Blood Glucose 210 #H 70-110 MG/DL White Blood Count 14.0 H 4.8-10.8 K/uL Red Blood Count 4.80 4.50-6.20 MIL/uL Hemoglobin 13.5 L 14.0-18.0 g/dL Hematocrit 40.9 L 42-54 % Mean Corpuscular Volume 85.2 79-99 fL Mean Corpuscular Hemoglobin 28.1 27.0-33.0 pg Mean Corpuscular Hemoglobin Concent 33.0 32.0-36.0 g/dL Red Cell Distribution Width 13.0 11.0-15.5 % Platelet Count 262 130-400 K/uL Mean Platelet Volume 8.5 7.5-10.5 fL Immature Granulocyte % (Auto) 0.9 0-1 % Neutrophils (%) (Auto) 61.6 40.0-77.0 % Lymphocytes (%) (Auto) 22.1 21.0-51.0 % Monocytes (%) (Auto) 9.4 3.0-13.0 % Eosinophils (%) (Auto) 5.0 0.0-8.0 % Basophils (%) (Auto) 1.0 0.0-5.0 % Neutrophils # (Auto) 8.6 H 1.8-7.7 K/uL Lymphocytes # (Auto) 3.1 1.0-4.8 K/uL Monocytes # (Auto) 1.3 H 0.1-1.0 K/uL Eosinophils # (Auto) 0.70 0.00-0.70 K/uL Basophils # (Auto) 0.14 0.00-0.20 K/uL Absolute Immature Granulocyte (auto 0.13 0-1 K/uL Nucleated Red Blood Cells 0.0 0.0-0.19 % Sodium Level 141 136-145 mmol/L Potassium Level 4.3 3.5-5.1 mmol/L Chloride Level 103 101-111 mmol/L Carbon Dioxide Level 33 H 21-32 mmol/L Blood Urea Nitrogen 22 H 7-18 mg/dL Creatinine 1.4 H 0.5-1.3 mg/dL Glomerular Filtration Rate Calc 60 >90 mL/min Random Glucose 106 H 70-105 mg/dL Total Calcium 8.6 8.5-10.1 mg/dL Total Bilirubin 0.3 0.2-1.0 mg/dL Aspartate Amino Transf (AST/SGOT) 34 10-37 U/L Alanine Aminotransferase (ALT/SGPT) 51 12-78 U/L Alkaline Phosphatase 79 50-136 U/L Total Protein 6.4 6.0-8.3 g/dL Albumin 2.6 L 3.5-5.0 g/dL Bedside Glucose Comment Notified Nurse Current Medications Medications (Trade) Dose Ordered Sig/Nico Route PRN Reason Start Time Stop Time Status Last Admin Dose Admin Acetaminophen (TYLenol 325MG TAB) 650 mg Q4H PRN PO TEMPERATURE GREATER THAN 101.5 10/10/24 06:30 11/09/24 06:29 10/15/24 17:33 650 MG Acetaminophen/ Hydrocodone Bitart (NORco 5/325MG) 1 tab Q4H PRN PO MODERATE PAIN (4-6) 10/10/24 06:30 10/15/24 06:29 DC 10/11/24 23:04 1 TAB Amlodipine Besylate (NorvASC 5MG TAB) 5 mg DAILY PO 10/10/24 09:00 11/09/24 08:59 10/16/24 08:43 5 MG Cefepime HCl (MAXipime 1 GM vial) 1 gm Q12H IVPB 10/16/24 13:00 10/26/24 12:59 Cefepime HCl (MAXipime 1 GM vial) 1 gm Q8H IVPB 10/16/24 12:00 10/16/24 12:44 DC Diphenhydramine HCl (BENAdryl CAP) 25 mg Q8H PRN PO ITCHING 10/12/24 14:30 11/11/24 14:29 10/15/24 20:20 25 MG Doxycycline Hyclate (Doxycycline Hyclate) 100 mg BID PO 10/13/24 21:00 10/16/24 11:59 DC 10/16/24 08:44 100 MG Epinephrine HCl (ADRENaline PF 1MG AMP) 0.3 mg ONCE STAT SQ 10/13/24 00:23 10/13/24 00:31 DC 10/13/24 00:46 0.3 MG Famotidine (Pepcid 20mg Vial) 20 mg ONCE STAT IV 10/13/24 00:23 10/13/24 00:29 DC 10/13/24 00:45 20 MG Famotidine (Pepcid 20mg Tab) 20 mg DAILY PO 10/10/24 09:00 11/09/24 08:59 10/16/24 08:44 20 MG Furosemide (LASix 20MG TAB) 20 mg DAILY PO 10/14/24 09:00 11/13/24 08:59 10/16/24 08:44 20 MG Furosemide (LASix 20MG TAB) 20 mg Q12H PO 10/11/24 12:00 10/13/24 12:21 DC 10/13/24 12:06 20 MG Heparin Sodium (Porcine) (HEParin 5,000 UNIT VIAL) 5,000 unit Q12H SQ 10/10/24 10:00 11/09/24 09:59 10/16/24 09:05 5,000 UNIT Hydralazine HCl (APRESOLine 20MG INJ) 5 mg Q4H PRN IV ADMINISTER FOR SBP > 160 10/10/24 06:30 11/09/24 06:29 Hydrocortisone (corTRIsone 1% CREAM) 1 APPL BID TP 10/11/24 21:00 11/10/24 20:59 10/16/24 08:44 1 APPL Insulin Glargine (LANtus 100 UNITS/ML 10 ML VIAL) 30 units HS SQ 10/11/24 21:00 10/13/24 12:13 DC 10/12/24 21:00 30 UNITS Insulin Glargine (LANtus 100 UNITS/ML 10 ML VIAL) 35 units HS SQ 10/13/24 21:00 10/13/24 12:21 DC Insulin Glargine (LANtus 100 UNITS/ML 10 ML VIAL) 50 units HS SQ 10/13/24 21:00 11/12/24 20:59 10/15/24 20:13 50 UNITS Insulin Glargine (LANtus 100 UNITS/ML 10 ML VIAL) 100 units BID SQ 10/11/24 21:00 10/11/24 11:53 DC Insulin Human Regular (humuLIN R 100 UNIT/ML 3ML) INSULIN SLIDING SCAL... ACHS SQ 10/10/24 07:30 10/11/24 20:31 DC 10/11/24 18:21 14 UNIT Insulin Human Regular (humuLIN R 100 UNIT/ML 3ML) INSULIN SLIDING SCAL... ACHS SQ 10/11/24 21:00 11/10/24 20:59 10/16/24 11:38 8 UNIT Lactulose (Constulose 20gm/ 30ml Udcup) 20 gm BID PRN PO CONSTIPATION 10/11/24 12:00 11/10/24 11:59 Linezolid (Zyvox) 600 mg Q12H PO 10/16/24 12:00 10/26/24 11:59 10/16/24 12:40 600 MG Magnesium Sulfate 50 ml @ 0 mls/hr PROTOCOL PRN IV low mag level 10/10/24 06:30 11/09/24 06:29 Methylprednisolone Sodium Succinate (Solu-medROL 125MG) 125 mg ONCE STAT IVP 10/13/24 00:23 10/13/24 00:29 DC 10/13/24 00:45 125 MG Miscellaneous Medication (Insulin Glargine,Hum.rec.anlog (Lantus Solostar)) 30 unit HS SQ 10/11/24 21:00 10/11/24 12:00 DC Piperacillin Sod/ Tazobactam Sod (Zosyn 3.375gm+NS 50ml) 3.375 gm Q8H IV 10/10/24 06:00 10/13/24 00:26 DC 10/12/24 22:05 3.375 GM Potassium Chloride 100 ml @ 100 mls/hr AD PRN IV POTASSIUM PROTOCOL 10/10/24 06:30 11/09/24 06:29 Potassium Chloride (K-Dur/Klor-Con 20meq) 20 meq AD PRN PO POTASSIUM PROTOCOL 10/10/24 06:30 11/09/24 06:29 Potassium Chloride (KCl 10% Elixir 20meq/15ml) 20 meq AD PRN PO POTASSIUM PROTOCOL 10/10/24 06:30 11/09/24 06:29 Sodium Chloride 1,000 ml @ 75 mls/hr [id number] IV 10/10/24 06:30 10/11/24 09:25 DC 10/10/24 07:30 75 MLS/HR Vancomycin HCl 250 ml @ 125 mls/hr Q24H IV 10/10/24 07:00 10/10/24 07:31 DC Vancomycin HCl 250 ml @ 125 mls/hr Q24H IV 10/11/24 08:00 10/14/24 11:53 DC 10/12/24 08:52 125 MLS/HR Vancomycin HCl (Vancomycin Protocol) 1 each AD IV 10/10/24 06:30 10/14/24 11:53 DC Vancomycin HCl (Vancomycin 1g/ 250ml Kit) 1 gm Q12H IV 10/10/24 06:00 10/10/24 06:23 DC DIAGNOSTICS / RADIOLOGY: [ ] ASSESSMENT: Sirs without organ malfunction POA bilateral lower ext. cellulitis POA failed outpatient treatment: POA intractable pain bilateral lower ext. POA nonhealing DM ulcer to left lower ext infected POA Suspecting Venous insufficiency POA bilateral lower +2 edema POA JARED ATN POA Uncontrolled DM POA Morbid obesity POA noncompliance POA 2D Echocardiogram LVEF is 60-65%. No regional wall motion abnormalities noted. Normal global strain of -20%. PLAN: admit: Medical surgical floor Discontinue doxycycline Initiated IV cefepime and linezolid as per Infectious Disease recommendations Place a PICC line to facilitate administration of senior living IV antibiotics [facility]'s Consultants: legal financial specialist recommend hydrocortisone to rash. We will follow her recommendations on wound dressing. Wound cultures so far no growth. Blood cultures negative for two days. Pain management: [place] 5/325 mg one tab q4 hr PRN DM: Ac.hs monitoring with SSRI coverage and long acting: Lantus 30 unit sq bedtime resume 50 units every a.m.. goal to keep flood sugar: < 200 Lasix 20 mg po daily. Leg elevation at all time HTN: Norvasc 5 mg po daily Echo to evaluated LV function avoid NSAIDS renal dose medications. Risk factors modification: weight management diet modified Labs: cbc, cmp and Mag+ Avoid NSAIDS strict I/O, PRN: MEDICATIONS Tylenol 650 mg po every 4 hrs for fever zofran 4 mg IV every 6 hrs for n/v Hydralazine 5 mg IV every 4 hrs systolic pressure > 160 Supportive measures: DVT ppx, GI ppx replace electrolytes as needed basis. all questions answered ATTESTATION BY PHYSICIAN I have seen and examined the patient. I reviewed the documentation, medical decision making, and treatment plan as noted by the resident provider above. I agree with the findings and plan of care. Astrid Jamison MD, GERARDO MD Oct 16, 2024 15:27
[2024-10-16] MEDS: ceFEPime HCL 1 GM VIAL IVPB SCH (15:28)
--- NOTE | 2024-10-16 15:36 | NUR ---
Nutrition consult per LOS 6 Reviewed labs, notes, and medications. Pt with T2DM ulcer POA, has PCP in [facility], on 60 gm cho + prostat jello tid, insulin, lasix, elevated bun 22, elevated bun 22, elevated Cr 1.4, hyperglycemia 112, A1C 11.8 per chart review. 100% Po intake, wt via standing scale, last BM 10/15/24, bilateral leg ulcer, well nourished, no edema, 250 ml balance 10/15/24 per nursing. Talked to patient, family did not like patient having alleged apple pie on tray. Patient agreeable to transition to a 60 gm cho + prostat jello tid w/ trays. He was not upset. Family was not present during visit. Per research low vitamin D may contribute to insulin resistance + vit. D deficiency may impair wound healing. RD verbally discussed T2DM MNT, Pt verbalized understanding. Recommendations: -Provide 60 gm cho + prostat jello tid w/ trays -Monitor PO intake -Encourage PO intake as able -Monitor BM -If no BM >3 days consider stool softener -Monitor electrolytes -Replenish electrolytes per protocol -Monitor wts -Reweigh as able -Order Vit D, vit b-12 labs to rule out deficiencies -Provide b-complex to aid in wound healing -Recommend Pt to follow up with PCP -Monitor goals of care RD to follow + available for consult per protocol Addendum: 10/16/24 at [address] Amended: Links added.
[2024-10-16] MEDS ORDERED: guaiFENesin-DM 200/20MG 10ML PO PRN (17:00)
[2024-10-16] MEDS: guaiFENesin-DM 200/20MG 10ML PO PRN (17:03)
--- NOTE | 2024-10-16 20:28 | CONS ---
DATE OF 10/16/2024 INFECTIOUS DISEASE CONSULTATION REQUESTING PHYSICIAN: Mekhi Woodson MD REASON FOR CONSULTATION: Antibiotic management and leg cellulitis. HISTORY OF PRESENT ILLNESS: This is a 54-year-old male, morbid obesity, hypertension, diabetes mellitus, presented to the hospital with bilateral leg pain, swelling, and redness. The patient has no history of trauma or fall. The patient also complained of some fever and chills. Arterial Doppler came back negative, venous Doppler also showed no evidence of thrombosis. The patient denies recent travel. No history of trauma. The patient was given vancomycin and Zosyn, now discontinued due to possible allergy. No cough, no hemoptysis or pleuritic pain. PAST MEDICAL HISTORY: * Diabetes mellitus. * Morbid obesity. * Hypertension. PAST SURGICAL HISTORY: Denies. ALLERGIES: Reported as: * VANCOMYCIN. * ZOSYN. CURRENT MEDICATIONS: Reviewed. SOCIAL HISTORY: . No alcohol, tobacco or illicit drugs. FAMILY HISTORY: Positive for diabetes mellitus. REVIEW OF SYSTEMS: Greater than 10 systems were reviewed, negatives as documented above. PHYSICAL EXAMINATION: GENERAL: Middle-aged, paraplegic male, awake. VITAL SIGNS: Temperature 98.4, pulse 73 respiratory rate 18, BP 116/66. EYES: No icterus. Pupils equal and reactive. HENT: No oral thrush seen. Moist oral mucosa. NECK: Supple, no JVD or thyromegaly. LUNGS: Good air entry. No rales, no rhonchi. CARDIOVASCULAR: S1, S2 regular. No murmur heard. ABDOMEN: Obese, soft, nontender. Bowel sounds present. CENTRAL NERVOUS SYSTEM: Awake, alert, oriented x 3. No focal deficits. SKIN: No rashes, no itchiness. LYMPHATIC: No peripheral lymphadenopathy. EXTREMITIES: Bilateral lower leg ulcer, cellulitis and blister formation. There is pitting edema. LABORATORY DATA: Sodium 141, potassium 4.3, BUN 20, creatinine 1.4. WBC 14.0, hemoglobin 13.5, platelet 162. Right leg wound culture, no growth, left leg wound culture growing coagulase-negative Staphylococcus, blood culture, no growth for 5 days. RADIOLOGY: Venous Doppler of lower extremities unremarkable, arterial Doppler shows monophasic flow. ASSESSMENT: A 54-year-old male with multiple problems which include: * Bilateral lower extremity cellulitis. * Bilateral lower extremity ulcer. * Morbid obesity. * Acute renal failure. * Hypertension. * Diabetes mellitus. PLAN: * Start the patient on cefepime. * Start the patient on linezolid. * Continue wound care. * Continue antidiabetic. * Continue pain management. * Continue nutritional support. * Monitor electrolytes. * Continue GI prophylaxis. * The patient will be followed up closely. Thank you for allowing me to participate in the care of this patient. TID: [id number] RECEIPT: [id number] MTDD
[2024-10-17] VITALS (7 sets, daily range): BP systolic 102–152; BP diastolic 50–78; PULSE 74–86; RESP 18–20; TEMP 97.5–98.6; O2SAT 98–100
[2024-10-17 04:56] LABS: BASOPHILS # (AUTO) 0.08 K/uL (0.00-0.20); BASOPHILS % (AUTO) 0.6 % (0.0-5.0); EOSINOPHILS # (AUTO) 0.51 K/uL (0.00-0.70); EOSINOPHILS % (AUTO) 3.8 % (0.0-8.0); HEMATOCRIT 41.6 % (42-54); LYMPHOCYTES # (AUTO) 2.3 K/uL (1.0-4.8); MEAN CORPUSCULAR HEMOGLOBIN 27.7 pg (27.0-33.0); MEAN CORPUSCULAR HGB CONC 32.5 g/dL (32.0-36.0); MEAN CORPUSCULAR VOLUME 85.2 fL (79-99); MONOCYTES # (AUTO) 1.1 K/uL (0.1-1.0); NEUTROPHILS # (AUTO) 9.3 K/uL (1.8-7.7); NEUTROPHILS % (AUTO) 69.8 % (40.0-77.0); PLATELET COUNT (AUTO) 245 K/uL (130-400); RED BLOOD CELL COUNT(AUTO) 4.88 MIL/uL (4.50-6.20); RED CELL DISTRIBUTION WIDTH 12.8 % (11.0-15.5); WHITE BLOOD COUNT (AUTO) 13.3 K/uL (4.8-10.8)
[2024-10-17 05:02] LABS: ALBUMIN 2.5 g/dL (3.5-5.0); BILIRUBIN,TOTAL 0.4 mg/dL (0.2-1.0); CREATININE 1.4 mg/dL (0.5-1.3); POTASSIUM 3.8 mmol/L (3.5-5.1); TOTAL PROTEIN, SERUM 6.3 g/dL (6.0-8.3)
--- NOTE | 2024-10-17 14:11 | PN ---
[facility] PROGRESS NOTE Date of Service: Oct 17, 2024 Time of Service: 13:59 SUBJECTIVE: admission date: 10/10/24 PCP: Ada Graves chief complaint: bilateral lower ext pain, redness, subjective Fevers This is a 54-year-old with a significant medical history of diabetes, hypertension and morbid obesity presents in ER with chief complaints of lower extremity pain and open nonhealing ulcers. Onset: ulcers for one month; report was seen in ED a month ago and was sent with oral antibiotics severity severe, aggravating factors: Pain aggravated by standing alleviating factors: None Associated symptoms: subjective Fever and Chills. patient recently went to [facility] with his PCP and was prescribed oral antibiotics he reports ulcers getting worse and decided to come to ED for further evaluation and treatment 10/11/24 The patient seen and examined : reviewed chart: the patient developed a rash to bilateral forearms: itching reported anti histamine was given x1 dose. analytics specialist on board. Patient's blood sugars are elevated patient is on home regimen Lantus 100 unit SQ BID will resumed; He is currently on sliding scale we will start him on t.i.d. a.c. regular insulin 5 units discussed that his A1c was 11.8 goal to keep his blood sugar below < 200. 10/12/24 patient was seen earlier in examined reviewed case discussed with attending. Review labs blood sugars are much controlled now. Creatinine improving. Edematous to lower extremity improving as well with diuretics. Encourage patient to ambulate in room keep lower extremities elevated while sitting in chair. Denied chest pain or shortness of breath 10/13/24 patient is seen and examined. Patient reports no apparently he has been refusing vancomycin. Therefore, we will start him on doxycycline 100 p.o. patient continues with local wound care wound cultures negative. Patient continues with elevated blood sugars; review home medication patient's Lantus in the morning is 50 units at bedtime 30 therefore we will resume a.m.. 10/14/24 patient is seen and examined earlier reviewed chart. patient continues with edematous to lower extremity; Lasix were changed to p.o. yesterday. We will get a 2D echo. The patient reports his PCP: DR Star mariano i instructed the patient the importance to be complaince with medications and with follow up appointment to [facility] DM uncontrolled with insulin regiment; and CRF. Patient verbalized understanding. We will wait for 2D echo 10/15/24 the patient was seen this morning at bedside and is alert and oriented to person, place, and time. Vital signs are stable. Morning glucose level was 78, showing significant improvement compared to prior days. Laboratory results are as follows: WBC 13.2, hemoglobin 14.7, platelets 262, sodium 140, potassium, creatinine 1.4, GFR 60. The patient remains on doxycycline. Vancomycin was discontinued due to a reported allergy. And consultation with Infectious Disease has been placed to determine the most appropriate antibiotic regimen. Blood culture are still pending, with no bacterial growth reported to date. Echocardiogram results to rule out congestive hear failure revealed a left ventr icular ejection fraction of 60-65 %, with a normal global strain of -20%. The patient will remain under observation with continued monitoring of glucose levels and white blood cell count. Recommendation from the Infectious Disease consultation are pending. 10/16/24 the patient was seen at the bedside and is alert and oriented to person, place, and time. Vital signs are stable. Laboratory results: Sodium 141, potassium 4.3, creatinine 1.4, GFR 112, WBC 14previously 13.2, indicating an upward trend, glucose 112 slightly stability. The Infectious Disease team evaluated the patient and recommended discontinue doxycycline. The patient was started on cefepime and linezolid, and a PICC line was ordered to initiate IV antibiotic therapy. The patient will remain under observation, and care we will proceed per Infectious Disease recommendations. 10/17/24 the patient was visited this morning at the bedside. Was oriented to person, place, and time. His vital signs stable with a slightly elevated blood pressure of 148/77. Yesterday, the patient presented with mild cough and nasal congestion, for which treatment with [id number] mL every 6 hours as needed was initiated. Today's laboratory results are as follows: WBC 13.3 Previously 14, hemoglobin 13.5, platelets 245, potassium 3.8, creatinine 1.4, GFR 60, random glucose 101. PICC line placement is still pending, with plans to place it t raghu. Additionally, losartan 50 mg daily will be initiated to help lower the blood pressure to normal levels. REVIEW OF SYSTEMS CONSTITUTIONAL: Denies fevers, chills, or night sweats. No unintentional weight loss reported. NEUROLOGICAL: Denies headache, amaurosis fugax, motor weakness, sensory deficit, vertigo/spinning sensation, gait abnormalities, or tremors. ENT: No hearing loss, otalgia, otorrhea, rhinitis, rhinorrhea, hoarseness, or sore throat. CARDIOVASCULAR: Denies any exertional angina, dyspnea on exertion, orthopnea, paroxysmal nocturnal dyspnea, palpitations, life-threatening arrhythmias, claudication. PULMONARY: Denies any shortness of breath, cough, phlegm/sputum, hemoptysis, pleuritic chest pain. SLEEP: Denies morning headaches, daytime somnolence or napping. Denies difficulty falling asleep, staying asleep, waking from sleep. Denies knowledge of snoring. GASTROINTESTINAL: Denies any type of dysphagia to either liquids or solids. Denies nausea, vomiting, pyrosis, early satiety, abdominal pain, diarrhea, constipation, or changes in stool consistency or caliber. Denies coffee-ground emesis, hematemesis, hematochezia, or melanotic stools. GENITOURINARY: Denies frequency, urgency, nocturia, hematuria or incontinence (Storage/Irritative symptoms.) Low urinary stream, straining to void, urinary intermittency or hesitancy, splitting of the voiding stream, terminal dribbling. ENDOCRINOLOGIC: Denies polyuria, polydipsia, polyphagia or heat/cold intolerances. HEMATOLOGIC: Denies thrombophilia/previous clots, or coagulopathy/bleeding disorders. ONCOLOGIC: Denies personal history of malignancy. DERMATOLOGIC: Denies rashes or pruritus. PSYCHIATRIC: Denies any suicidal or homicidal ideation. Denies hallucinations. PHYSICAL EXAM GENERAL APPEARANCE: The patient is awake, alert, and oriented, in no acute cardiopulmonary distress. NEUROLOGICAL: Cranial nerves II-XII grossly intact. Motor is 5/5 in bilateral upper and lower extremities proximal to distal. No sensory deficits. HEENT: Face is symmetric. Pupils are equal and reactive. Extraocular movements are intact. NECK: Supple. No JVD. No thyromegaly. No submental, submandibular, pre- /postauricular, occipital or supraclavicular lymphadenopathy. CHEST: Normal chest expansion. No Telemetry. LUNGS: Absence of any rales, rhonchi or any wheezing. CARDIOVASCULAR: Regular. S1 and S2 normal. No appreciable rubs, murmurs or gallops. ABDOMEN: Soft, nontender, and nondistended. There is no rebound, voluntary guarding, or rigidity. : Deferred. No Sullivan. EXTREMITIES: Non-edematous and not cyanotic. No clubbing. Good capillary refill. SKIN: several wound to left leg: oozing. +1 edema bilateral lower ext. Vital Signs (last 8hr) Date Time Temp Pulse Resp B/P (MAP) Pulse Ox O2 Delivery O2 Flow Rate FiO2 10/17/24 11:51 98.6 86 20 152/78 100 Room Air 21 10/17/24 08:00 100 Room Air* 0 21 10/17/24 07:30 97.9 86 20 148/77 100 Room Air 21 LABS: Laboratory: Test 10/17/24 11:24 10/17/24 04:32 10/16/24 13:10 10/16/24 04:30 Range/Units Whole Blood Glucose 260 H 70-110 MG/DL White Blood Count 13.3 H 4.8-10.8 K/uL Red Blood Count 4.88 4.50-6.20 MIL/uL Hemoglobin 13.5 L 14.0-18.0 g/dL Hematocrit 41.6 L 42-54 % Mean Corpuscular Volume 85.2 79-99 fL Mean Corpuscular Hemoglobin 27.7 27.0-33.0 pg Mean Corpuscular Hemoglobin Concent 32.5 32.0-36.0 g/dL Red Cell Distribution Width 12.8 11.0-15.5 % Platelet Count 245 130-400 K/uL Mean Platelet Volume 8.4 7.5-10.5 fL Immature Granulocyte % (Auto) 0.8 0-1 % Neutrophils (%) (Auto) 69.8 40.0-77.0 % Lymphocytes (%) (Auto) 17.0 L 21.0-51.0 % Monocytes (%) (Auto) 8.0 3.0-13.0 % Eosinophils (%) (Auto) 3.8 0.0-8.0 % Basophils (%) (Auto) 0.6 0.0-5.0 % Neutrophils # (Auto) 9.3 H 1.8-7.7 K/uL Lymphocytes # (Auto) 2.3 1.0-4.8 K/uL Monocytes # (Auto) 1.1 H 0.1-1.0 K/uL Eosinophils # (Auto) 0.51 0.00-0.70 K/uL Basophils # (Auto) 0.08 0.00-0.20 K/uL Absolute Immature Granulocyte (auto 0.10 0-1 K/uL Nucleated Red Blood Cells 0.0 0.0-0.19 % Sodium Level 140 136-145 mmol/L Potassium Level 3.8 3.5-5.1 mmol/L Chloride Level 103 101-111 mmol/L Carbon Dioxide Level 35 H 21-32 mmol/L Blood Urea Nitrogen 23 H 7-18 mg/dL Creatinine 1.4 H 0.5-1.3 mg/dL Glomerular Filtration Rate Calc 60 >90 mL/min Random Glucose 101 70-105 mg/dL Total Calcium 8.6 8.5-10.1 mg/dL Total Bilirubin 0.4 0.2-1.0 mg/dL Aspartate Amino Transf (AST/SGOT) 26 10-37 U/L Alanine Aminotransferase (ALT/SGPT) 42 12-78 U/L Alkaline Phosphatase 75 50-136 U/L Total Protein 6.3 6.0-8.3 g/dL Albumin 2.5 L 3.5-5.0 g/dL Prothrombin Time 10.9 9.6-11.6 SEC Prothromb Time International Ratio 0.97 0.85-1.15 Vitamin B12 Level 391 193-986 pg/mL Current Medications Medications (Trade) Dose Ordered Sig/Nico Route PRN Reason Start Time Stop Time Status Last Admin Dose Admin Acetaminophen (TYLenol 325MG TAB) 650 mg Q4H PRN PO TEMPERATURE GREATER THAN 101.5 10/10/24 06:30 11/09/24 06:29 10/15/24 17:33 650 MG Acetaminophen/ Hydrocodone Bitart (NORco 5/325MG) 1 tab Q4H PRN PO MODERATE PAIN (4-6) 10/10/24 06:30 10/15/24 06:29 DC 10/11/24 23:04 1 TAB Amlodipine Besylate (NorvASC 5MG TAB) 5 mg DAILY PO 10/10/24 09:00 11/09/24 08:59 10/17/24 09:47 5 MG Cefepime HCl (MAXipime 1 GM vial) 1 gm Q12H IVPB 10/16/24 13:00 10/26/24 12:59 10/17/24 13:10 1 GM Cefepime HCl (MAXipime 1 GM vial) 1 gm Q8H IVPB 10/16/24 12:00 10/16/24 12:44 DC Diphenhydramine HCl (BENAdryl CAP) 25 mg Q8H PRN PO ITCHING 10/12/24 14:30 11/11/24 14:29 10/16/24 23:46 25 MG Doxycycline Hyclate (Doxycycline Hyclate) 100 mg BID PO 10/13/24 21:00 10/16/24 11:59 DC 10/16/24 08:44 100 MG Epinephrine HCl (ADRENaline PF 1MG AMP) 0.3 mg ONCE STAT SQ 10/13/24 00:23 10/13/24 00:31 DC 10/13/24 00:46 0.3 MG Famotidine (Pepcid 20mg Vial) 20 mg ONCE STAT IV 10/13/24 00:23 10/13/24 00:29 DC 10/13/24 00:45 20 MG Famotidine (Pepcid 20mg Tab) 20 mg DAILY PO 10/10/24 09:00 11/09/24 08:59 10/17/24 09:47 20 MG Furosemide (LASix 20MG TAB) 20 mg DAILY PO 10/14/24 09:00 11/13/24 08:59 10/17/24 09:47 20 MG Furosemide (LASix 20MG TAB) 20 mg Q12H PO 10/11/24 12:00 10/13/24 12:21 DC 10/13/24 12:06 20 MG Guaifenesin/ Dextromethorphan (RobiTUSSin DM 200/20MG 10ML) 5 ml Q6H PRN PO COUGH 10/16/24 17:00 10/16/24 16:58 DC Guaifenesin/ Dextromethorphan (RobiTUSSin DM 200/20MG 10ML) 15 ml Q6H PRN PO COUGH 10/16/24 17:00 11/15/24 16:59 10/16/24 23:45 15 ML Heparin Sodium (Porcine) (HEParin 5,000 UNIT VIAL) 5,000 unit Q12H SQ 10/10/24 10:00 11/09/24 09:59 10/17/24 09:54 5,000 UNIT Hydralazine HCl (APRESOLine 20MG INJ) 5 mg Q4H PRN IV ADMINISTER FOR SBP > 160 10/10/24 06:30 11/09/24 06:29 Hydrocortisone (corTRIsone 1% CREAM) 1 APPL BID TP 10/11/24 21:00 11/10/24 20:59 10/16/24 20:13 1 APPL Insulin Glargine (LANtus 100 UNITS/ML 10 ML VIAL) 30 units HS SQ 10/11/24 21:00 10/13/24 12:13 DC 10/12/24 21:00 30 UNITS Insulin Glargine (LANtus 100 UNITS/ML 10 ML VIAL) 35 units HS SQ 10/13/24 21:00 10/13/24 12:21 DC Insulin Glargine (LANtus 100 UNITS/ML 10 ML VIAL) 50 units HS SQ 10/13/24 21:00 11/12/24 20:59 10/16/24 20:14 50 UNITS Insulin Glargine (LANtus 100 UNITS/ML 10 ML VIAL) 100 units BID SQ 10/11/24 21:00 10/11/24 11:53 DC Insulin Human Regular (humuLIN R 100 UNIT/ML 3ML) INSULIN SLIDING SCAL... ACHS SQ 10/10/24 07:30 10/11/24 20:31 DC 10/11/24 18:21 14 UNIT Insulin Human Regular (humuLIN R 100 UNIT/ML 3ML) INSULIN SLIDING SCAL... ACHS SQ 10/11/24 21:00 11/10/24 20:59 10/17/24 11:36 12 UNIT Lactulose (Constulose 20gm/ 30ml Udcup) 20 gm BID PRN PO CONSTIPATION 10/11/24 12:00 11/10/24 11:59 Linezolid (Zyvox) 600 mg Q12H PO 10/16/24 12:00 10/26/24 11:59 10/17/24 11:28 600 MG Losartan Potassium (CozAAR 50 mg TAB) 50 mg DAILY PO 10/18/24 09:00 11/17/24 08:59 Magnesium Sulfate 50 ml @ 0 mls/hr PROTOCOL PRN IV low mag level 10/10/24 06:30 11/09/24 06:29 Methylprednisolone Sodium Succinate (Solu-medROL 125MG) 125 mg ONCE STAT IVP 10/13/24 00:23 10/13/24 00:29 DC 10/13/24 00:45 125 MG Miscellaneous Medication (Insulin Glargine,Hum.rec.anlog (Lantus Solostar)) 30 unit HS SQ 10/11/24 21:00 10/11/24 12:00 DC Piperacillin Sod/ Tazobactam Sod (Zosyn 3.375gm+NS 50ml) 3.375 gm Q8H IV 10/10/24 06:00 10/13/24 00:26 DC 10/12/24 22:05 3.375 GM Potassium Chloride 100 ml @ 100 mls/hr AD PRN IV POTASSIUM PROTOCOL 10/10/24 06:30 11/09/24 06:29 Potassium Chloride (K-Dur/Klor-Con 20meq) 20 meq AD PRN PO POTASSIUM PROTOCOL 10/10/24 06:30 11/09/24 06:29 Potassium Chloride (KCl 10% Elixir 20meq/15ml) 20 meq AD PRN PO POTASSIUM PROTOCOL 10/10/24 06:30 11/09/24 06:29 Sodium Chloride 1,000 ml @ 75 mls/hr [id number] IV 10/10/24 06:30 10/11/24 09:25 DC 10/10/24 07:30 75 MLS/HR Vancomycin HCl 250 ml @ 125 mls/hr Q24H IV 10/10/24 07:00 10/10/24 07:31 DC Vancomycin HCl 250 ml @ 125 mls/hr Q24H IV 10/11/24 08:00 10/14/24 11:53 DC 10/12/24 08:52 125 MLS/HR Vancomycin HCl (Vancomycin Protocol) 1 each AD IV 10/10/24 06:30 10/14/24 11:53 DC Vancomycin HCl (Vancomycin 1g/ 250ml Kit) 1 gm Q12H IV 10/10/24 06:00 10/10/24 06:23 DC DIAGNOSTICS / RADIOLOGY: [ ] ASSESSMENT: Sirs without organ malfunction POA bilateral lower ext. cellulitis POA failed outpatient treatment: POA intractable pain bilateral lower ext. POA nonhealing DM ulcer to left lower ext infected POA Suspecting Venous insufficiency POA bilateral lower +2 edema POA JARED ATN POA Uncontrolled DM POA Morbid obesity POA noncompliance POA 2D Echocardiogram LVEF is 60-65%. No regional wall motion abnormalities noted. Normal global strain of -20%. PLAN: admit: Medical surgical floor Discontinue doxycycline Initiated IV cefepime and linezolid as per Infectious Disease recommendations Place a PICC line to facilitate administration of local intermodal truck driver IV antibiotics [facility] Consultants: sales enablement specialist recommend hydrocortisone to rash. We will follow her recommendations on wound dressing. Wound cultures so far no growth. Blood cultures negative for two days. Pain management: [place] 5/325 mg one tab q4 hr PRN DM: Ac.hs monitoring with SSRI coverage and long acting: Lantus 30 unit sq bedtime resume 50 units every a.m.. goal to keep flood sugar: < 200 Lasix 20 mg po daily. Leg elevation at all time HTN: Norvasc 5 mg po daily Echo to evaluated LV function avoid NSAIDS renal dose medications. Risk factors modification: weight management diet modified Labs: cbc, cmp and Mag+ Avoid NSAIDS strict I/O, PRN: MEDICATIONS Robitussin 15 ml po every 6 hrs for cough Tylenol 650 mg po every 4 hrs for fever zofran 4 mg IV every 6 hrs for n/v Hydralazine 5 mg IV every 4 hrs systolic pressure > 160 Supportive measures: DVT ppx, GI ppx replace electrolytes as needed basis. all questions answered ATTESTATION BY PHYSICIAN I have seen and examined the patient. I reviewed the documentation, medical decision making, and treatment plan as noted by the resident provider above. I agree with the findings and plan of care. Astrid Jamison MD, GERARDO MD Oct 17, 2024 14:11
--- NOTE | 2024-10-17 15:29 | PN ---
INFECTIOUS DISEASE PROGRESS NOTE Date of Service: Oct 17, 2024 SUBJECTIVE: This is a 54 male patient who was seen and examined at bedside in room 407. Patient is awake, alert and oriented x3. Patient is sitting up on the edge of the bed. WBC today is 13.3 and no reports of fever, temperature is 98.6. Preliminary wound cultures from bilateral lower extremity ulcers growing coagulase-negative Staphylococcus. We will follow up on the final culture results. Continue cefepime IV and linezolid p.o. we will continue to follow patient's care. PHYSICAL EXAM EYES: Anicteric. Pupils equal and reactive. HENT: No oral thrush seen, moist Oral mucosa. NECK: Supple, no JVD or thyromegaly. LUNGS: Good air entry. No rales, no rhonchi. CARDIOVASCULAR: S1, S2 regular. No murmur heard. ABDOMEN: Soft, non tender, bowel sounds present, no organomegaly. CENTRAL NERVOUS SYSTEM: Awake, alert, oriented x 3. SKIN: No rashes, no swelling. LYMPHATICS: No peripheral lymphadenopathy. MUSCULOSKELETAL: No joint swelling, erythema or tenderness. EXTREMITIES: No cyanosis or clubbing. Bilateral lower extremities ulcers with cellulitis. BACK: No deformity, no pressure ulcer. GENITOURINARY: No dysuria or hematuria. Vital Sign (Last 12 Hours) 10/17/24 10/17/24 10/17/24 10/17/24 04:00 07:30 08:00 11:51 Temp 98.1 97.9 98.6 Pulse 76 86 86 Resp 18 20 20 B/P (MAP) 140/74 148/77 152/78 Pulse Ox 94 100 100 100 O2 Delivery Room Air Room Air Room Air* Room Air O2 Flow Rate 0 FiO2 21 21 21 Intake & Output (last 24hrs) 10/16/24 10/16/24 10/17/24 15:00 23:00 07:00 Intake Total 50.0 ml 1800 ml Balance 50.0 ml 1800 ml LABS: Laboratory: Test 10/17/24 11:24 10/17/24 04:32 10/16/24 13:10 10/16/24 04:30 Range/Units Whole Blood Glucose 260 H 70-110 MG/DL White Blood Count 13.3 H 4.8-10.8 K/uL Red Blood Count 4.88 4.50-6.20 MIL/uL Hemoglobin 13.5 L 14.0-18.0 g/dL Hematocrit 41.6 L 42-54 % Mean Corpuscular Volume 85.2 79-99 fL Mean Corpuscular Hemoglobin 27.7 27.0-33.0 pg Mean Corpuscular Hemoglobin Concent 32.5 32.0-36.0 g/dL Red Cell Distribution Width 12.8 11.0-15.5 % Platelet Count 245 130-400 K/uL Mean Platelet Volume 8.4 7.5-10.5 fL Immature Granulocyte % (Auto) 0.8 0-1 % Neutrophils (%) (Auto) 69.8 40.0-77.0 % Lymphocytes (%) (Auto) 17.0 L 21.0-51.0 % Monocytes (%) (Auto) 8.0 3.0-13.0 % Eosinophils (%) (Auto) 3.8 0.0-8.0 % Basophils (%) (Auto) 0.6 0.0-5.0 % Neutrophils # (Auto) 9.3 H 1.8-7.7 K/uL Lymphocytes # (Auto) 2.3 1.0-4.8 K/uL Monocytes # (Auto) 1.1 H 0.1-1.0 K/uL Eosinophils # (Auto) 0.51 0.00-0.70 K/uL Basophils # (Auto) 0.08 0.00-0.20 K/uL Absolute Immature Granulocyte (auto 0.10 0-1 K/uL Nucleated Red Blood Cells 0.0 0.0-0.19 % Sodium Level 140 136-145 mmol/L Potassium Level 3.8 3.5-5.1 mmol/L Chloride Level 103 101-111 mmol/L Carbon Dioxide Level 35 H 21-32 mmol/L Blood Urea Nitrogen 23 H 7-18 mg/dL Creatinine 1.4 H 0.5-1.3 mg/dL Glomerular Filtration Rate Calc 60 >90 mL/min Random Glucose 101 70-105 mg/dL Total Calcium 8.6 8.5-10.1 mg/dL Total Bilirubin 0.4 0.2-1.0 mg/dL Aspartate Amino Transf (AST/SGOT) 26 10-37 U/L Alanine Aminotransferase (ALT/SGPT) 42 12-78 U/L Alkaline Phosphatase 75 50-136 U/L Total Protein 6.3 6.0-8.3 g/dL Albumin 2.5 L 3.5-5.0 g/dL Prothrombin Time 10.9 9.6-11.6 SEC Prothromb Time International Ratio 0.97 0.85-1.15 Vitamin B12 Level 391 193-986 pg/mL ASSESSMENT: Bilateral lower extremity ulcers. Bilateral lower extremity cellulitis. Leukocytosis. Diabetes mellitus. Acute renal failure, improving. Hypertension. PLAN: Continue cefepime1 g IV every 12 hours. Continue linezolid 600 mg p.o. b.i.d. Continue GI prophylaxis. Continue wound care. We will follow up on the culture results. Avoid nephrotoxic medications. Continue monitoring glucose levels. This case was reviewed and discussed with my supervising physician and the above assessment and plan was formulated and agreed upon. ATTESTATION BY PHYSICIAN I have seen and examined the patient. I reviewed the documentation, medical decision making, and treatment plan as noted by the mid-level provider above. I agree with the findings and plan of care. ALEKSANDR MILLAN MD, MIRTA L [employer] FINANCE MANAGER Oct 17, 2024 15:28
[2024-10-18] VITALS (8 sets, daily range): BP systolic 104–140; BP diastolic 61–89; PULSE 64–92; RESP 13–20; TEMP 97.6–98.4; O2SAT 97–98
[2024-10-18 05:11] LABS: BASOPHILS # (AUTO) 0.11 K/uL (0.00-0.20); BASOPHILS % (AUTO) 0.7 % (0.0-5.0); EOSINOPHILS # (AUTO) 0.54 K/uL (0.00-0.70); EOSINOPHILS % (AUTO) 3.6 % (0.0-8.0); HEMATOCRIT 43.2 % (42-54); IMMATURE GRANULOCYTE ABSOLUTE 0.11 K/uL (0-1); LYMPHOCYTES # (AUTO) 3.3 K/uL (1.0-4.8); MEAN CORPUSCULAR HEMOGLOBIN 28.1 pg (27.0-33.0); MEAN CORPUSCULAR HGB CONC 32.6 g/dL (32.0-36.0); MEAN CORPUSCULAR VOLUME 86.1 fL (79-99); MONOCYTES # (AUTO) 1.2 K/uL (0.1-1.0); NEUTROPHILS # (AUTO) 9.6 K/uL (1.8-7.7); PLATELET COUNT (AUTO) 297 K/uL (130-400); RED BLOOD CELL COUNT(AUTO) 5.02 MIL/uL (4.50-6.20); RED CELL DISTRIBUTION WIDTH 12.8 % (11.0-15.5); WHITE BLOOD COUNT (AUTO) 14.9 K/uL (4.8-10.8)
[2024-10-18 05:22] LABS: ALBUMIN 2.8 g/dL (3.5-5.0); BILIRUBIN,TOTAL 0.4 mg/dL (0.2-1.0); CREATININE 1.3 mg/dL (0.5-1.3); POTASSIUM 3.9 mmol/L (3.5-5.1); TOTAL PROTEIN, SERUM 6.9 g/dL (6.0-8.3)
[2024-10-18] MEDS: LoSARTan 50 MG TABLET PO SCH (08:05)
--- NOTE | 2024-10-18 12:45 | PN ---
INFECTIOUS DISEASE PROGRESS NOTE Date of Service: Oct 18, 2024 SUBJECTIVE: This is a 54 male patient who was seen and examined at bedside in room 407. Patient is awake, alert and oriented x3. Patient is up ambulating in the room and tolerated well. Bilateral lower extremity ulcers improving. WBC still slightly elevated at 14.9. Patient is afebrile, temperature is 98.1. No reports of nausea or vomiting. Wound cultures positive for coagulase-negative Staphylococcus. Will continue on cefepime IV and linezolid p.o. We will continue to follow patient's care. PHYSICAL EXAM EYES: Anicteric. Pupils equal and reactive. HENT: No oral thrush seen, moist Oral mucosa. NECK: Supple, no JVD or thyromegaly. LUNGS: Good air entry. No rales, no rhonchi. CARDIOVASCULAR: S1, S2 regular. No murmur heard. ABDOMEN: Soft, non tender, bowel sounds present, no organomegaly. CENTRAL NERVOUS SYSTEM: Awake, alert, oriented x 3. SKIN: No rashes, no swelling. LYMPHATICS: No peripheral lymphadenopathy. MUSCULOSKELETAL: No joint swelling, erythema or tenderness. EXTREMITIES: No cyanosis or clubbing. Bilateral lower extremities ulcers with cellulitis. BACK: No deformity, no pressure ulcer. GENITOURINARY: No dysuria or hematuria. Vital Sign (Last 12 Hours) 10/18/24 10/18/24 10/18/24 10/18/24 01:40 03:35 07:49 12:00 Temp 97.9 98.4 97.5 98.1 Pulse 65 92 64 75 Resp 18 17 15 14 B/P (MAP) 140/89 136/76 130/75 118/66 Pulse Ox 96 96 97 95 O2 Delivery Room Air Room Air Room Air Room Air O2 Flow Rate 0.0 0.0 Intake & Output (last 24hrs) 10/17/24 10/17/24 10/18/24 15:00 23:00 07:00 Intake Total 1200 ml 240 ml Balance 1200 ml 240 ml LABS: Laboratory: Test 10/18/24 11:50 10/18/24 04:42 10/16/24 13:10 Range/Units Whole Blood Glucose 280 H 70-110 MG/DL White Blood Count 14.9 H 4.8-10.8 K/uL Red Blood Count 5.02 4.50-6.20 MIL/uL Hemoglobin 14.1 14.0-18.0 g/dL Hematocrit 43.2 42-54 % Mean Corpuscular Volume 86.1 79-99 fL Mean Corpuscular Hemoglobin 28.1 27.0-33.0 pg Mean Corpuscular Hemoglobin Concent 32.6 32.0-36.0 g/dL Red Cell Distribution Width 12.8 11.0-15.5 % Platelet Count 297 130-400 K/uL Mean Platelet Volume 8.6 7.5-10.5 fL Immature Granulocyte % (Auto) 0.7 0-1 % Neutrophils (%) (Auto) 65.0 40.0-77.0 % Lymphocytes (%) (Auto) 22.0 21.0-51.0 % Monocytes (%) (Auto) 8.0 3.0-13.0 % Eosinophils (%) (Auto) 3.6 0.0-8.0 % Basophils (%) (Auto) 0.7 0.0-5.0 % Neutrophils # (Auto) 9.6 H 1.8-7.7 K/uL Lymphocytes # (Auto) 3.3 1.0-4.8 K/uL Monocytes # (Auto) 1.2 H 0.1-1.0 K/uL Eosinophils # (Auto) 0.54 0.00-0.70 K/uL Basophils # (Auto) 0.11 0.00-0.20 K/uL Absolute Immature Granulocyte (auto 0.11 0-1 K/uL Nucleated Red Blood Cells 0.0 0.0-0.19 % Sodium Level 139 136-145 mmol/L Potassium Level 3.9 3.5-5.1 mmol/L Chloride Level 103 101-111 mmol/L Carbon Dioxide Level 29 21-32 mmol/L Blood Urea Nitrogen 21 H 7-18 mg/dL Creatinine 1.3 0.5-1.3 mg/dL Glomerular Filtration Rate Calc 66 >90 mL/min Random Glucose 82 70-105 mg/dL Total Calcium 8.7 8.5-10.1 mg/dL Total Bilirubin 0.4 0.2-1.0 mg/dL Aspartate Amino Transf (AST/SGOT) 26 10-37 U/L Alanine Aminotransferase (ALT/SGPT) 41 12-78 U/L Alkaline Phosphatase 84 50-136 U/L Total Protein 6.9 6.0-8.3 g/dL Albumin 2.8 L 3.5-5.0 g/dL Prothrombin Time 10.9 9.6-11.6 SEC Prothromb Time International Ratio 0.97 0.85-1.15 ASSESSMENT: Bilateral lower extremity ulcers. Bilateral lower extremity cellulitis. Leukocytosis. Diabetes mellitus. Acute renal failure, improving. Hypertension. PLAN: Continue cefepime IV. Continue linezolid p.o. Continue GI prophylaxis. Continue wound care. We will follow up on the culture results. Avoid nephrotoxic medications. Continue monitoring glucose levels. This case was reviewed and discussed with my supervising physician and the above assessment and plan was formulated and agreed upon. ATTESTATION BY PHYSICIAN I have seen and examined the patient. I reviewed the documentation, medical decision making, and treatment plan as noted by the mid-level provider above. I agree with the findings and plan of care. ALEKSANDR MILLAN MD, MIRTA L [facility] Oct 18, 2024 12:45
--- NOTE | 2024-10-18 13:29 | PN ---
[facility] PROGRESS NOTE Date of Service: Oct 18, 2024 Time of Service: 13:25 SUBJECTIVE: admission date: 10/10/24 PCP: Ada Graves chief complaint: bilateral lower ext pain, redness, subjective Fevers This is a 54-year-old with a significant medical history of diabetes, hypertension and morbid obesity presents in ER with chief complaints of lower extremity pain and open nonhealing ulcers. Onset: ulcers for one month; report was seen in ED a month ago and was sent with oral antibiotics severity severe, aggravating factors: Pain aggravated by standing alleviating factors: None Associated symptoms: subjective Fever and Chills. patient recently went to [facility] with his PCP and was prescribed oral antibiotics he reports ulcers getting worse and decided to come to ED for further evaluation and treatment 10/11/24 The patient seen and examined : reviewed chart: the patient developed a rash to bilateral forearms: itching reported anti histamine was given x1 dose. document specialist on board. Patient's blood sugars are elevated patient is on home regimen Lantus 100 unit SQ BID will resumed; He is currently on sliding scale we will start him on t.i.d. a.c. regular insulin 5 units discussed that his A1c was 11.8 goal to keep his blood sugar below < 200. 10/12/24 patient was seen earlier in examined reviewed case discussed with attending. Review labs blood sugars are much controlled now. Creatinine improving. Edematous to lower extremity improving as well with diuretics. Encourage patient to ambulate in room keep lower extremities elevated while sitting in chair. Denied chest pain or shortness of breath 10/13/24 patient is seen and examined. Patient reports no apparently he has been refusing vancomycin. Therefore, we will start him on doxycycline 100 p.o. patient continues with local wound care wound cultures negative. Patient continues with elevated blood sugars; review home medication patient's Lantus in the morning is 50 units at bedtime 30 therefore we will resume a.m.. 10/14/24 patient is seen and examined earlier reviewed chart. patient continues with edematous to lower extremity; Lasix were changed to p.o. yesterday. We will get a 2D echo. The patient reports his PCP: DR Star mariano i instructed the patient the importance to be complaince with medications and with follow up appointment to [facility] DM uncontrolled with insulin regiment; and CRF. Patient verbalized understanding. We will wait for 2D echo 10/15/24 the patient was seen this morning at bedside and is alert and oriented to person, place, and time. Vital signs are stable. Morning glucose level was 78, showing significant improvement compared to prior days. Laboratory results are as follows: WBC 13.2, hemoglobin 14.7, platelets 262, sodium 140, potassium, creatinine 1.4, GFR 60. The patient remains on doxycycline. Vancomycin was discontinued due to a reported allergy. And consultation with Infectious Disease has been placed to determine the most appropriate antibiotic regimen. Blood culture are still pending, with no bacterial growth reported to date. Echocardiogram results to rule out congestive hear failure revealed a left ventr icular ejection fraction of 60-65 %, with a normal global strain of -20%. The patient will remain under observation with continued monitoring of glucose levels and white blood cell count. Recommendation from the Infectious Disease consultation are pending. 10/16/24 the patient was seen at the bedside and is alert and oriented to person, place, and time. Vital signs are stable. Laboratory results: Sodium 141, potassium 4.3, creatinine 1.4, GFR 112, WBC 14previously 13.2, indicating an upward trend, glucose 112 slightly stability. The Infectious Disease team evaluated the patient and recommended discontinue doxycycline. The patient was started on cefepime and linezolid, and a PICC line was ordered to initiate IV antibiotic therapy. The patient will remain under observation, and care we will proceed per Infectious Disease recommendations. 10/17/24 the patient was visited this morning at the bedside. Was oriented to person, place, and time. His vital signs stable with a slightly elevated blood pressure of 148/77. Yesterday, the patient presented with mild cough and nasal congestion, for which treatment with [id number] mL every 6 hours as needed was initiated. Today's laboratory results are as follows: WBC 13.3 Previously 14, hemoglobin 13.5, platelets 245, potassium 3.8, creatinine 1.4, GFR 60, random glucose 101. PICC line placement is still pending, with plans to place it t raghu. Additionally, losartan 50 mg daily will be initiated to help lower the blood pressure to normal levels. 10/18/24 the patient was evaluated at the bedside this morning and reports feeling well, without pain, cough, or other complaints. Vital signs are stable. Patient has been afebrile. Wound care has been performed on ulcers present legs. Laboratory results: WBC 14.9 previously 13.3, hemoglobin 14.1 Previously 13.5, platelet 297, sodium 139, potassium 3.9, creatinine 1.3. Patient continue treatment with cefepime and linezolid. Awaiting placement of a PICC line. Losartan 50 mg daily initiated today for blood pressure control. We are closely monitoring the patient and adhering to the recommendation from the Infectious Disease team. REVIEW OF SYSTEMS CONSTITUTIONAL: Denies fevers, chills, or night sweats. No unintentional weight loss reported. NEUROLOGICAL: Denies headache, amaurosis fugax, motor weakness, sensory deficit, vertigo/spinning sensation, gait abnormalities, or tremors. ENT: No hearing loss, otalgia, otorrhea, rhinitis, rhinorrhea, hoarseness, or sore throat. CARDIOVASCULAR: Denies any exertional angina, dyspnea on exertion, orthopnea, paroxysmal nocturnal dyspnea, palpitations, life-threatening arrhythmias, claudication. PULMONARY: Denies any shortness of breath, cough, phlegm/sputum, hemoptysis, pleuritic chest pain. SLEEP: Denies morning headaches, daytime somnolence or napping. Denies difficulty falling asleep, staying asleep, waking from sleep. Denies knowledge of snoring. GASTROINTESTINAL: Denies any type of dysphagia to either liquids or solids. Denies nausea, vomiting, pyrosis, early satiety, abdominal pain, diarrhea, constipation, or changes in stool consistency or caliber. Denies coffee-ground emesis, hematemesis, hematochezia, or melanotic stools. GENITOURINARY: Denies frequency, urgency, nocturia, hematuria or incontinence (Storage/Irritative symptoms.) Low urinary stream, straining to void, urinary intermittency or hesitancy, splitting of the voiding stream, terminal dribbling. ENDOCRINOLOGIC: Denies polyuria, polydipsia, polyphagia or heat/cold intolerances. HEMATOLOGIC: Denies thrombophilia/previous clots, or coagulopathy/bleeding disorders. ONCOLOGIC: Denies personal history of malignancy. DERMATOLOGIC: Denies rashes or pruritus. PSYCHIATRIC: Denies any suicidal or homicidal ideation. Denies hallucinations. PHYSICAL EXAM GENERAL APPEARANCE: The patient is awake, alert, and oriented, in no acute cardiopulmonary distress. NEUROLOGICAL: Cranial nerves II-XII grossly intact. Motor is 5/5 in bilateral upper and lower extremities proximal to distal. No sensory deficits. HEENT: Face is symmetric. Pupils are equal and reactive. Extraocular movements are intact. NECK: Supple. No JVD. No thyromegaly. No submental, submandibular, pre- /postauricular, occipital or supraclavicular lymphadenopathy. CHEST: Normal chest expansion. No Telemetry. LUNGS: Absence of any rales, rhonchi or any wheezing. CARDIOVASCULAR: Regular. S1 and S2 normal. No appreciable rubs, murmurs or gallops. ABDOMEN: Soft, nontender, and nondistended. There is no rebound, voluntary guarding, or rigidity. : Deferred. No Sullivan. EXTREMITIES: Non-edematous and not cyanotic. No clubbing. Good capillary refill. SKIN: several wound to left leg: oozing. +1 edema bilateral lower ext. Vital Signs (last 8hr) Date Time Temp Pulse Resp B/P (MAP) Pulse Ox O2 Delivery O2 Flow Rate FiO2 10/18/24 12:00 98.1 75 14 118/66 95 Room Air 0.0 10/18/24 07:49 97.5 64 15 130/75 97 Room Air 0.0 LABS: Laboratory: Test 10/18/24 11:50 10/18/24 04:42 Range/Units Whole Blood Glucose 280 H 70-110 MG/DL White Blood Count 14.9 H 4.8-10.8 K/uL Red Blood Count 5.02 4.50-6.20 MIL/uL Hemoglobin 14.1 14.0-18.0 g/dL Hematocrit 43.2 42-54 % Mean Corpuscular Volume 86.1 79-99 fL Mean Corpuscular Hemoglobin 28.1 27.0-33.0 pg Mean Corpuscular Hemoglobin Concent 32.6 32.0-36.0 g/dL Red Cell Distribution Width 12.8 11.0-15.5 % Platelet Count 297 130-400 K/uL Mean Platelet Volume 8.6 7.5-10.5 fL Immature Granulocyte % (Auto) 0.7 0-1 % Neutrophils (%) (Auto) 65.0 40.0-77.0 % Lymphocytes (%) (Auto) 22.0 21.0-51.0 % Monocytes (%) (Auto) 8.0 3.0-13.0 % Eosinophils (%) (Auto) 3.6 0.0-8.0 % Basophils (%) (Auto) 0.7 0.0-5.0 % Neutrophils # (Auto) 9.6 H 1.8-7.7 K/uL Lymphocytes # (Auto) 3.3 1.0-4.8 K/uL Monocytes # (Auto) 1.2 H 0.1-1.0 K/uL Eosinophils # (Auto) 0.54 0.00-0.70 K/uL Basophils # (Auto) 0.11 0.00-0.20 K/uL Absolute Immature Granulocyte (auto 0.11 0-1 K/uL Nucleated Red Blood Cells 0.0 0.0-0.19 % Sodium Level 139 136-145 mmol/L Potassium Level 3.9 3.5-5.1 mmol/L Chloride Level 103 101-111 mmol/L Carbon Dioxide Level 29 21-32 mmol/L Blood Urea Nitrogen 21 H 7-18 mg/dL Creatinine 1.3 0.5-1.3 mg/dL Glomerular Filtration Rate Calc 66 >90 mL/min Random Glucose 82 70-105 mg/dL Total Calcium 8.7 8.5-10.1 mg/dL Total Bilirubin 0.4 0.2-1.0 mg/dL Aspartate Amino Transf (AST/SGOT) 26 10-37 U/L Alanine Aminotransferase (ALT/SGPT) 41 12-78 U/L Alkaline Phosphatase 84 50-136 U/L Total Protein 6.9 6.0-8.3 g/dL Albumin 2.8 L 3.5-5.0 g/dL Current Medications Medications (Trade) Dose Ordered Sig/Nico Route PRN Reason Start Time Stop Time Status Last Admin Dose Admin Acetaminophen (TYLenol 325MG TAB) 650 mg Q4H PRN PO TEMPERATURE GREATER THAN 101.5 10/10/24 06:30 11/09/24 06:29 10/18/24 05:38 650 MG Acetaminophen/ Hydrocodone Bitart (NORco 5/325MG) 1 tab Q4H PRN PO MODERATE PAIN (4-6) 10/10/24 06:30 10/15/24 06:29 DC 10/11/24 23:04 1 TAB Amlodipine Besylate (NorvASC 5MG TAB) 5 mg DAILY PO 10/10/24 09:00 11/09/24 08:59 10/18/24 08:05 5 MG Cefepime HCl (MAXipime 1 GM vial) 1 gm Q12H IVPB 10/16/24 13:00 10/26/24 12:59 10/18/24 12:02 1 GM Cefepime HCl (MAXipime 1 GM vial) 1 gm Q8H IVPB 10/16/24 12:00 10/16/24 12:44 DC Diphenhydramine HCl (BENAdryl CAP) 25 mg Q8H PRN PO ITCHING 10/12/24 14:30 11/11/24 14:29 10/18/24 12:02 25 MG Doxycycline Hyclate (Doxycycline Hyclate) 100 mg BID PO 10/13/24 21:00 10/16/24 11:59 DC 10/16/24 08:44 100 MG Epinephrine HCl (ADRENaline PF 1MG AMP) 0.3 mg ONCE STAT SQ 10/13/24 00:23 10/13/24 00:31 DC 10/13/24 00:46 0.3 MG Famotidine (Pepcid 20mg Vial) 20 mg ONCE STAT IV 10/13/24 00:23 10/13/24 00:29 DC 10/13/24 00:45 20 MG Famotidine (Pepcid 20mg Tab) 20 mg DAILY PO 10/10/24 09:00 11/09/24 08:59 10/18/24 08:05 20 MG Furosemide (LASix 20MG TAB) 20 mg DAILY PO 10/14/24 09:00 11/13/24 08:59 10/18/24 08:05 20 MG Furosemide (LASix 20MG TAB) 20 mg Q12H PO 10/11/24 12:00 10/13/24 12:21 DC 10/13/24 12:06 20 MG Guaifenesin/ Dextromethorphan (RobiTUSSin DM 200/20MG 10ML) 5 ml Q6H PRN PO COUGH 10/16/24 17:00 10/16/24 16:58 DC Guaifenesin/ Dextromethorphan (RobiTUSSin DM 200/20MG 10ML) 15 ml Q6H PRN PO COUGH 10/16/24 17:00 11/15/24 16:59 10/16/24 23:45 15 ML Heparin Sodium (Porcine) (HEParin 5,000 UNIT VIAL) 5,000 unit Q12H SQ 10/10/24 10:00 11/09/24 09:59 10/18/24 08:13 5,000 UNIT Hydralazine HCl (APRESOLine 20MG INJ) 5 mg Q4H PRN IV ADMINISTER FOR SBP > 160 10/10/24 06:30 11/09/24 06:29 Hydrocortisone (corTRIsone 1% CREAM) 1 APPL BID TP 10/11/24 21:00 11/10/24 20:59 10/18/24 08:06 1 APPL Insulin Glargine (LANtus 100 UNITS/ML 10 ML VIAL) 30 units HS SQ 10/11/24 21:00 10/13/24 12:13 DC 10/12/24 21:00 30 UNITS Insulin Glargine (LANtus 100 UNITS/ML 10 ML VIAL) 35 units HS SQ 10/13/24 21:00 10/13/24 12:21 DC Insulin Glargine (LANtus 100 UNITS/ML 10 ML VIAL) 50 units HS SQ 10/13/24 21:00 11/12/24 20:59 10/17/24 20:26 50 UNITS Insulin Glargine (LANtus 100 UNITS/ML 10 ML VIAL) 100 units BID SQ 10/11/24 21:00 10/11/24 11:53 DC Insulin Human Regular (humuLIN R 100 UNIT/ML 3ML) INSULIN SLIDING SCAL... ACHS SQ 10/10/24 07:30 10/11/24 20:31 DC 10/11/24 18:21 14 UNIT Insulin Human Regular (humuLIN R 100 UNIT/ML 3ML) INSULIN SLIDING SCAL... ACHS SQ 10/11/24 21:00 11/10/24 20:59 10/18/24 12:10 14 UNIT Lactulose (Constulose 20gm/ 30ml Udcup) 20 gm BID PRN PO CONSTIPATION 10/11/24 12:00 11/10/24 11:59 Linezolid (Zyvox) 600 mg Q12H PO 10/16/24 12:00 10/26/24 11:59 1/9/25 12:02 600 MG Losartan Potassium (CozAAR 50 mg TAB) 50 mg DAILY PO 10/18/24 09:00 11/17/24 08:59 10/18/24 08:05 50 MG Magnesium Sulfate 50 ml @ 0 mls/hr PROTOCOL PRN IV low mag level 10/10/24 06:30 11/09/24 06:29 Methylprednisolone Sodium Succinate (Solu-medROL 125MG) 125 mg ONCE STAT IVP 10/13/24 00:23 10/13/24 00:29 DC 10/13/24 00:45 125 MG Miscellaneous Medication (Insulin Glargine,Hum.rec.anlog (Lantus Solostar)) 30 unit HS SQ 10/11/24 21:00 10/11/24 12:00 DC Piperacillin Sod/ Tazobactam Sod (Zosyn 3.375gm+NS 50ml) 3.375 gm Q8H IV 10/10/24 06:00 10/13/24 00:26 DC 10/12/24 22:05 3.375 GM Potassium Chloride 100 ml @ 100 mls/hr AD PRN IV POTASSIUM PROTOCOL 10/10/24 06:30 11/09/24 06:29 Potassium Chloride (K-Dur/Klor-Con 20meq) 20 meq AD PRN PO POTASSIUM PROTOCOL 10/10/24 06:30 11/09/24 06:29 Potassium Chloride (KCl 10% Elixir 20meq/15ml) 20 meq AD PRN PO POTASSIUM PROTOCOL 10/10/24 06:30 11/09/24 06:29 Sodium Chloride 1,000 ml @ 75 mls/hr [id number] IV 10/10/24 06:30 10/11/24 09:25 DC 10/10/24 07:30 75 MLS/HR Vancomycin HCl 250 ml @ 125 mls/hr Q24H IV 10/10/24 07:00 10/10/24 07:31 DC Vancomycin HCl 250 ml @ 125 mls/hr Q24H IV 10/11/24 08:00 10/14/24 11:53 DC 10/12/24 08:52 125 MLS/HR Vancomycin HCl (Vancomycin Protocol) 1 each AD IV 10/10/24 06:30 10/14/24 11:53 DC Vancomycin HCl (Vancomycin 1g/ 250ml Kit) 1 gm Q12H IV 10/10/24 06:00 10/10/24 06:23 DC DIAGNOSTICS / RADIOLOGY: [ ] ASSESSMENT: Sirs without organ malfunction POA bilateral lower ext. cellulitis POA failed outpatient treatment: POA intractable pain bilateral lower ext. POA nonhealing DM ulcer to left lower ext infected POA Suspecting Venous insufficiency POA bilateral lower +2 edema POA JARED ATN POA Uncontrolled DM POA Morbid obesity POA noncompliance POA 2D Echocardiogram LVEF is 60-65%. No regional wall motion abnormalities noted. Normal global strain of -20%. PLAN: admit: Medical surgical floor Discontinue doxycycline Initiated IV cefepime and linezolid as per Infectious Disease recommendations Place a PICC line to facilitate administration of halfway IV antibiotics [facility]'s Consultants: system configuration specialist recommend hydrocortisone to rash. We will follow her recommendations on wound dressing. Wound cultures so far no growth. Blood cultures negative for two days. Pain management: [place] 5/325 mg one tab q4 hr PRN DM: Ac.hs monitoring with SSRI coverage and long acting: Lantus 30 unit sq bedtime resume 50 units every a.m.. goal to keep flood sugar: < 200 Lasix 20 mg po daily. Leg elevation at all time HTN: Norvasc 5 mg po daily, losartan 50 mg p.o. daily Echo to evaluated LV function avoid NSAIDS renal dose medications. Risk factors modification: weight management diet modified Labs: cbc, cmp and Mag+ Avoid NSAIDS strict I/O, PRN: MEDICATIONS Robitussin 15 ml po every 6 hrs for cough Tylenol 650 mg po every 4 hrs for fever zofran 4 mg IV every 6 hrs for n/v Hydralazine 5 mg IV every 4 hrs systolic pressure > 160 Supportive measures: DVT ppx, GI ppx replace electrolytes as needed basis. all questions answered ATTESTATION BY PHYSICIAN I have seen and examined the patient. I reviewed the documentation, medical decision making, and treatment plan as noted by the resident provider above. I agree with the findings and plan of care. Astrid Jamison MD, GERARDO MD Oct 18, 2024 13:29
--- NOTE | 2024-10-18 22:24 | HMCIMG ---
CHEST 1VW HISTORY: PICC line placement COMPARISON: 10/10/2024 FINDINGS: A frontal projection of the chest was obtained. No acute pulmonary infiltrates is seen. The heart is borderline enlarged. Prominent interstitial markings are seen. PICC line is seen entering from the right with distal tip in the plane of the superior vena cava. No evidence of aortic calcification is seen. IMPRESSION: 1. No acute pulmonary infiltrate is seen.
[2024-10-19] VITALS (7 sets, daily range): BP systolic 108–147; BP diastolic 62–80; PULSE 69–83; RESP 15–20; TEMP 97.6–98.1; O2SAT 96
[2024-10-19 05:40] LABS: BASOPHILS # (AUTO) 0.13 K/uL (0.00-0.20); BASOPHILS % (AUTO) 0.9 % (0.0-5.0); EOSINOPHILS # (AUTO) 0.45 K/uL (0.00-0.70); EOSINOPHILS % (AUTO) 3.1 % (0.0-8.0); HEMATOCRIT 41.3 % (42-54); IMMATURE GRANULOCYTE ABSOLUTE 0.14 K/uL (0-1); LYMPHOCYTES # (AUTO) 2.8 K/uL (1.0-4.8); LYMPHOCYTES % (AUTO) 18.8 % (21.0-51.0); MEAN CORPUSCULAR HEMOGLOBIN 27.9 pg (27.0-33.0); MEAN CORPUSCULAR HGB CONC 32.4 g/dL (32.0-36.0); MONOCYTES # (AUTO) 1.3 K/uL (0.1-1.0); MONOCYTES % (AUTO) 8.6 % (3.0-13.0); NEUTROPHILS % (AUTO) 67.7 % (40.0-77.0); PLATELET COUNT (AUTO) 243 K/uL (130-400); RED CELL DISTRIBUTION WIDTH 12.8 % (11.0-15.5); WHITE BLOOD COUNT (AUTO) 14.8 K/uL (4.8-10.8)
[2024-10-19 05:57] LABS: ALBUMIN 2.7 g/dL (3.5-5.0); BILIRUBIN,TOTAL 0.4 mg/dL (0.2-1.0); CREATININE 1.5 mg/dL (0.5-1.3); POTASSIUM 3.8 mmol/L (3.5-5.1); TOTAL PROTEIN, SERUM 6.7 g/dL (6.0-8.3)
--- NOTE | 2024-10-19 13:56 | PN ---
PROGRESS NOTE Date of Service: Oct 19, 2024 Time of Service: 13:53 SUBJECTIVE: Patient is seen at the bedside for a wound care follow-up. Patient is alert and cooperative, he is not in acute distress. Patient tolerating IV antibiotic as per ID specialist recommendation. Continue wound care on bilateral lower extremities venous ulcer per orders. Further management per hospital course. REVIEW OF SYSTEMS CONSTITUTIONAL: Denies fatigue. Positive for subjective fever, chills HEAD/FACE: No signs of trauma. EENT: Denies eye pain, blurred vision, double vision, or light sensitivity. RESPIRATORY: Denies shortness of breath, cough, wheezing CARDIOVASCULAR: Denies chest pain, palpitation, syncope GASTROINTESTINAL/ABDOMINAL: Denies abdominal pain, constipation, diarrhea, nausea or vomiting GENITOURINARY: Denies dysuria or hematuria. MUSCULOSKELETAL: Denies joint pain, tenderness, or trauma. INTEGUMENTARY: Rash of upper and lower extremities, itchy; Bilateral lower extremity wounds NEUROLOGICAL/PSYCH: Denies anxiety, depression, heat or cold intolerance. PHYSICAL EXAM EYES: Anicteric. Pupils equal and reactive. HENT: No oral thrush seen, moist Oral mucosa NECK: Supple, no JVD or thyromegaly. LUNGS: Good air entry. No rales, no rhonchi. CARDIOVASCULAR: S1, S2 regular. No murmur heard. ABDOMEN: Soft, non tender, bowel sounds present, no organomegaly CENTRAL NERVOUS SYSTEM: Awake, alert, oriented x 3. No focal deficits. SKIN: Venous ulcer in bilateral lower extremities. LYMPHATICS: No peripheral lymphadenopathy MUSCULOSKELETAL: No joint swelling, erythema or tenderness. EXTREMITIES: No cyanosis or clubbing; Rash upper and lower extremities. Bilateral lower extremities venous ulcers. BACK: No deformity, no pressure ulcer. GENITOURINARY: No dysuria or hematuria Vital Signs (last 8hr) Date Time Temp Pulse Resp B/P (MAP) Pulse Ox O2 Delivery O2 Flow Rate FiO2 10/19/24 12:00 97.5 74 15 128/62 98 Room Air 0.0 10/19/24 08:00 96 Room Air* 0 21 10/19/24 07:48 98.1 69 16 108/62 96 Room Air 0.0 LABS: Laboratory: Test 10/19/24 11:39 10/19/24 05:23 Range/Units Whole Blood Glucose 176 H 70-110 MG/DL White Blood Count 14.8 H 4.8-10.8 K/uL Red Blood Count 4.80 4.50-6.20 MIL/uL Hemoglobin 13.4 L 14.0-18.0 g/dL Hematocrit 41.3 L 42-54 % Mean Corpuscular Volume 86.0 79-99 fL Mean Corpuscular Hemoglobin 27.9 27.0-33.0 pg Mean Corpuscular Hemoglobin Concent 32.4 32.0-36.0 g/dL Red Cell Distribution Width 12.8 11.0-15.5 % Platelet Count 243 130-400 K/uL Mean Platelet Volume 8.5 7.5-10.5 fL Immature Granulocyte % (Auto) 0.9 0-1 % Neutrophils (%) (Auto) 67.7 40.0-77.0 % Lymphocytes (%) (Auto) 18.8 L 21.0-51.0 % Monocytes (%) (Auto) 8.6 3.0-13.0 % Eosinophils (%) (Auto) 3.1 0.0-8.0 % Basophils (%) (Auto) 0.9 0.0-5.0 % Neutrophils # (Auto) 10.0 H 1.8-7.7 K/uL Lymphocytes # (Auto) 2.8 1.0-4.8 K/uL Monocytes # (Auto) 1.3 H 0.1-1.0 K/uL Eosinophils # (Auto) 0.45 0.00-0.70 K/uL Basophils # (Auto) 0.13 0.00-0.20 K/uL Absolute Immature Granulocyte (auto 0.14 0-1 K/uL Nucleated Red Blood Cells 0.0 0.0-0.19 % Sodium Level 138 136-145 mmol/L Potassium Level 3.8 3.5-5.1 mmol/L Chloride Level 101 101-111 mmol/L Carbon Dioxide Level 32 21-32 mmol/L Blood Urea Nitrogen 21 H 7-18 mg/dL Creatinine 1.5 H 0.5-1.3 mg/dL Glomerular Filtration Rate Calc 55 >90 mL/min Random Glucose 125 H 70-105 mg/dL Total Calcium 8.5 8.5-10.1 mg/dL Total Bilirubin 0.4 0.2-1.0 mg/dL Aspartate Amino Transf (AST/SGOT) 25 10-37 U/L Alanine Aminotransferase (ALT/SGPT) 38 12-78 U/L Alkaline Phosphatase 81 50-136 U/L Total Protein 6.7 6.0-8.3 g/dL Albumin 2.7 L 3.5-5.0 g/dL DIAGNOSTICS / RADIOLOGY: [ ] PROBLEM LIST : Medical Problems: (1) CKD (chronic kidney disease) ICD Codes: N18.9 - Chronic kidney disease, unspecified (2) Hyperglycemia ICD Codes: R73.9 - Hyperglycemia, unspecified (3) Lower extremity cellulitis ICD Codes: L03.119 - Cellulitis of unspecified part of limb Venous ulcers to bilateral lower extremities Rash to upper and lower extremities PLAN: Clean the wound with normal saline or wound cleanser and pat dry. Wound care per order. Continue IV antibiotic therapy per ID specialist recommendation. Comorbidities per primary team. Avoid keeping the lower extremities in dependent position for prolonged period of time. Further management per hospital course. THERON QUINONES MD Oct 19, 2024 13:56
--- NOTE | 2024-10-19 14:24 | PN ---
[facility] PROGRESS NOTE Date of Service: Oct 19, 2024 Time of Service: 14:24 SUBJECTIVE: admission date: 10/10/24 PCP: Ada Graves chief complaint: bilateral lower ext pain, redness, subjective Fevers This is a 54-year-old with a significant medical history of diabetes, hypertension and morbid obesity presents in ER with chief complaints of lower extremity pain and open nonhealing ulcers. Onset: ulcers for one month; report was seen in ED a month ago and was sent with oral antibiotics severity severe, aggravating factors: Pain aggravated by standing alleviating factors: None Associated symptoms: subjective Fever and Chills. patient recently went to [facility] with his PCP and was prescribed oral antibiotics he reports ulcers getting worse and decided to come to ED for further evaluation and treatment 10/11/24 The patient seen and examined : reviewed chart: the patient developed a rash to bilateral forearms: itching reported anti histamine was given x1 dose. child protective services specialist on board. Patient's blood sugars are elevated patient is on home regimen Lantus 100 unit SQ BID will resumed; He is currently on sliding scale we will start him on t.i.d. a.c. regular insulin 5 units discussed that his A1c was 11.8 goal to keep his blood sugar below < 200. 10/12/24 patient was seen earlier in examined reviewed case discussed with attending. Review labs blood sugars are much controlled now. Creatinine improving. Edematous to lower extremity improving as well with diuretics. Encourage patient to ambulate in room keep lower extremities elevated while sitting in chair. Denied chest pain or shortness of breath 10/13/24 patient is seen and examined. Patient reports no apparently he has been refusing vancomycin. Therefore, we will start him on doxycycline 100 p.o. patient continues with local wound care wound cultures negative. Patient continues with elevated blood sugars; review home medication patient's Lantus in the morning is 50 units at bedtime 30 therefore we will resume a.m.. 10/14/24 patient is seen and examined earlier reviewed chart. patient continues with edematous to lower extremity; Lasix were changed to p.o. yesterday. We will get a 2D echo. The patient reports his PCP: DR Star mariano i instructed the patient the importance to be complaince with medications and with follow up appointment to [facility] DM uncontrolled with insulin regiment; and CRF. Patient verbalized understanding. We will wait for 2D echo 10/15/24 the patient was seen this morning at bedside and is alert and oriented to person, place, and time. Vital signs are stable. Morning glucose level was 78, showing significant improvement compared to prior days. Laboratory results are as follows: WBC 13.2, hemoglobin 14.7, platelets 262, sodium 140, potassium, cr eatinine 1.4, GFR 60. The patient remains on doxycycline. Vancomycin was discontinued due to a reported allergy. And consultation with Infectious Disease has been placed to determine the most appropriate antibiotic regimen. Blood culture are still pending, with no bacterial growth reported to date. Echocardiogram results to rule out congestive hear failure revealed a left vent ricular ejection fraction of 60-65 %, with a normal global strain of -20%. The patient will remain under observation with continued monitoring of glucose levels and white blood cell count. Recommendation from the Infectious Disease consultation are pending. 10/16/24 the patient was seen at the bedside and is alert and oriented to person, place, and time. Vital signs are stable. Laboratory results: Sodium 141, potassium 4.3, creatinine 1.4, GFR 112, WBC 14previously 13.2, indicating an upward trend, glucose 112 slightly stability. The Infectious Disease team evaluated the patient and recommended discontinue doxycycline. The patient was started on cefepime and linezolid, and a PICC line was ordered to initiate IV antibiotic therapy. The patient will remain under observation, and care we will proceed per Infectious Disease recommendations. 10/17/24 the patient was visited this morning at the bedside. Was oriented to person, place, and time. His vital signs stable with a slightly elevated blood pressure of 148/77. Yesterday, the patient presented with mild cough and nasal congestion, for which treatment with [id number] mL every 6 hours as needed was initiated. Today's laboratory results are as follows: WBC 13.3 Previously 14, hemoglobin 13.5, platelets 245, potassium 3.8, creatinine 1.4, GFR 60, random glucose 101. PICC line placement is still pending, with plans to place it today. Additionally, losartan 50 mg daily will be initiated to help lower the blood pressure to normal levels. 10/18/24 the patient was evaluated at the bedside this morning and reports feeling well, without pain, cough, or other complaints. Vital signs are stable. Patient has been afebrile. Wound care has been performed on ulcers present legs. Laboratory results: WBC 14.9 previously 13.3, hemoglobin 14.1 Previously 13.5, platelet 297, sodium 139, potassium 3.9, creatinine 1.3. Patient continue treatment with cefepime and linezolid. Awaiting placement of a PICC line. Losartan 50 mg daily initiated today for blood pressure control. We are closely monitoring the patient and adhering to the recommendation from the Infectious Disease team. 10/19/24 The patient was evaluated this morning at the bedside. The patient reports feeling significantly better, with a marked decrease in coughing and no pain. Wound care has been provided for ulcers on both legs. vital signs are stable, with normal blood pressure. The patient remains afebrile. WBC 14.8 Previously 14.9, hemoglobin 13.4 previously 14.1 , platelets 243 previously 297, sodium 138, potassium 3.8 , creatinine 1.5 Previously 1.3 GFR 55 previously 66. PICC line was placed last night. The patient continued treatment with cefepime and linezolid. awaiting recommendation for Infectious Disease. REVIEW OF SYSTEMS CONSTITUTIONAL: Denies fevers, chills, or night sweats. No unintentional weight loss reported. NEUROLOGICAL: Denies headache, amaurosis fugax, motor weakness, sensory deficit, vertigo/spinning sensation, gait abnormalities, or tremors. ENT: No hearing loss, otalgia, otorrhea, rhinitis, rhinorrhea, hoarseness, or sore throat. CARDIOVASCULAR: Denies any exertional angina, dyspnea on exertion, orthopnea, paroxysmal nocturnal dyspnea, palpitations, life-threatening arrhythmias, claudication. PULMONARY: Denies any shortness of breath, cough, phlegm/sputum, hemoptysis, pleuritic chest pain. SLEEP: Denies morning headaches, daytime somnolence or napping. Denies difficulty falling asleep, staying asleep, waking from sleep. Denies knowledge of snoring. GASTROINTESTINAL: Denies any type of dysphagia to either liquids or solids. Denies nausea, vomiting, pyrosis, early satiety, abdominal pain, diarrhea, constipation, or changes in stool consistency or caliber. Denies coffee-ground emesis, hematemesis, hematochezia, or melanotic stools. GENITOURINARY: Denies frequency, urgency, nocturia, hematuria or incontinence (Storage/Irritative symptoms.) Low urinary stream, straining to void, urinary intermittency or hesitancy, splitting of the voiding stream, terminal dribbling. ENDOCRINOLOGIC: Denies polyuria, polydipsia, polyphagia or heat/cold intolerances. HEMATOLOGIC: Denies thrombophilia/previous clots, or coagulopathy/bleeding disorders. ONCOLOGIC: Denies personal history of malignancy. DERMATOLOGIC: Denies rashes or pruritus. PSYCHIATRIC: Denies any suicidal or homicidal ideation. Denies hallucinations. PHYSICAL EXAM GENERAL APPEARANCE: The patient is awake, alert, and oriented, in no acute cardiopulmonary distress. NEUROLOGICAL: Cranial nerves II-XII grossly intact. Motor is 5/5 in bilateral upper and lower extremities proximal to distal. No sensory deficits. HEENT: Face is symmetric. Pupils are equal and reactive. Extraocular movements are intact. NECK: Supple. No JVD. No thyromegaly. No submental, submandibular, pre- /postauricular, occipital or supraclavicular lymphadenopathy. CHEST: Normal chest expansion. No Telemetry. LUNGS: Absence of any rales, rhonchi or any wheezing. CARDIOVASCULAR: Regular. S1 and S2 normal. No appreciable rubs, murmurs or gallops. ABDOMEN: Soft, nontender, and nondistended. There is no rebound, voluntary guarding, or rigidity. : Deferred. No Sullivan. EXTREMITIES: Non-edematous and not cyanotic. No clubbing. Good capillary refill. SKIN: several wound to left leg: oozing. +1 edema bilateral lower ext. Vital Signs (last 8hr) Date Time Temp Pulse Resp B/P (MAP) Pulse Ox O2 Delivery O2 Flow Rate FiO2 10/19/24 12:00 97.5 74 15 128/62 98 Room Air 0.0 10/19/24 08:00 96 Room Air* 0 21 10/19/24 07:48 98.1 69 16 108/62 96 Room Air 0.0 LABS: Laboratory: Test 10/19/24 11:39 10/19/24 05:23 Range/Units Whole Blood Glucose 176 H 70-110 MG/DL White Blood Count 14.8 H 4.8-10.8 K/uL Red Blood Count 4.80 4.50-6.20 MIL/uL Hemoglobin 13.4 L 14.0-18.0 g/dL Hematocrit 41.3 L 42-54 % Mean Corpuscular Volume 86.0 79-99 fL Mean Corpuscular Hemoglobin 27.9 27.0-33.0 pg Mean Corpuscular Hemoglobin Concent 32.4 32.0-36.0 g/dL Red Cell Distribution Width 12.8 11.0-15.5 % Platelet Count 243 130-400 K/uL Mean Platelet Volume 8.5 7.5-10.5 fL Immature Granulocyte % (Auto) 0.9 0-1 % Neutrophils (%) (Auto) 67.7 40.0-77.0 % Lymphocytes (%) (Auto) 18.8 L 21.0-51.0 % Monocytes (%) (Auto) 8.6 3.0-13.0 % Eosinophils (%) (Auto) 3.1 0.0-8.0 % Basophils (%) (Auto) 0.9 0.0-5.0 % Neutrophils # (Auto) 10.0 H 1.8-7.7 K/uL Lymphocytes # (Auto) 2.8 1.0-4.8 K/uL Monocytes # (Auto) 1.3 H 0.1-1.0 K/uL Eosinophils # (Auto) 0.45 0.00-0.70 K/uL Basophils # (Auto) 0.13 0.00-0.20 K/uL Absolute Immature Granulocyte (auto 0.14 0-1 K/uL Nucleated Red Blood Cells 0.0 0.0-0.19 % Sodium Level 138 136-145 mmol/L Potassium Level 3.8 3.5-5.1 mmol/L Chloride Level 101 101-111 mmol/L Carbon Dioxide Level 32 21-32 mmol/L Blood Urea Nitrogen 21 H 7-18 mg/dL Creatinine 1.5 H 0.5-1.3 mg/dL Glomerular Filtration Rate Calc 55 >90 mL/min Random Glucose 125 H 70-105 mg/dL Total Calcium 8.5 8.5-10.1 mg/dL Total Bilirubin 0.4 0.2-1.0 mg/dL Aspartate Amino Transf (AST/SGOT) 25 10-37 U/L Alanine Aminotransferase (ALT/SGPT) 38 12-78 U/L Alkaline Phosphatase 81 50-136 U/L Total Protein 6.7 6.0-8.3 g/dL Albumin 2.7 L 3.5-5.0 g/dL Current Medications Medications (Trade) Dose Ordered Sig/Nico Route PRN Reason Start Time Stop Time Status Last Admin Dose Admin Acetaminophen (TYLenol 325MG TAB) 650 mg Q4H PRN PO TEMPERATURE GREATER THAN 101.5 10/10/24 06:30 11/09/24 06:29 10/18/24 05:38 650 MG Acetaminophen/ Hydrocodone Bitart (NORco 5/325MG) 1 tab Q4H PRN PO MODERATE PAIN (4-6) 10/10/24 06:30 10/15/24 06:29 DC 10/11/24 23:04 1 TAB Amlodipine Besylate (NorvASC 5MG TAB) 5 mg DAILY PO 10/10/24 09:00 10/19/24 09:40 DC 10/18/24 08:05 5 MG Cefepime HCl (MAXipime 1 GM vial) 1 gm Q12H IVPB 10/16/24 13:00 10/26/24 12:59 10/19/24 12:50 1 GM Cefepime HCl (MAXipime 1 GM vial) 1 gm Q8H IVPB 10/16/24 12:00 10/16/24 12:44 DC Diphenhydramine HCl (BENAdryl CAP) 25 mg Q8H PRN PO ITCHING 10/12/24 14:30 11/11/24 14:29 10/18/24 12:02 25 MG Doxycycline Hyclate (Doxycycline Hyclate) 100 mg BID PO 10/13/24 21:00 10/16/24 11:59 DC 10/16/24 08:44 100 MG Epinephrine HCl (ADRENaline PF 1MG AMP) 0.3 mg ONCE STAT SQ 10/13/24 00:23 10/13/24 00:31 DC 10/13/24 00:46 0.3 MG Famotidine (Pepcid 20mg Vial) 20 mg ONCE STAT IV 10/13/24 00:23 10/13/24 00:29 DC 10/13/24 00:45 20 MG Famotidine (Pepcid 20mg Tab) 20 mg DAILY PO 10/10/24 09:00 11/09/24 08:59 10/19/24 09:45 20 MG Furosemide (LASix 20MG TAB) 20 mg DAILY PO 10/14/24 09:00 11/13/24 08:59 10/18/24 08:05 20 MG Furosemide (LASix 20MG TAB) 20 mg Q12H PO 10/11/24 12:00 10/13/24 12:21 DC 10/13/24 12:06 20 MG Guaifenesin/ Dextromethorphan (RobiTUSSin DM 200/20MG 10ML) 5 ml Q6H PRN PO COUGH 10/16/24 17:00 10/16/24 16:58 DC Guaifenesin/ Dextromethorphan (RobiTUSSin DM 200/20MG 10ML) 15 ml Q6H PRN PO COUGH 10/16/24 17:00 11/15/24 16:59 10/16/24 23:45 15 ML Heparin Sodium (Porcine) (HEParin 5,000 UNIT VIAL) 5,000 unit Q12H SQ 10/10/24 10:00 11/09/24 09:59 10/19/24 09:46 5,000 UNIT Hydralazine HCl (APRESOLine 20MG INJ) 5 mg Q4H PRN IV ADMINISTER FOR SBP > 160 10/10/24 06:30 11/09/24 06:29 Hydrocortisone (corTRIsone 1% CREAM) 1 APPL BID TP 10/11/24 21:00 11/10/24 20:59 10/19/24 09:47 1 APPL Insulin Glargine (LANtus 100 UNITS/ML 10 ML VIAL) 30 units HS SQ 10/11/24 21:00 10/13/24 12:13 DC 10/12/24 21:00 30 UNITS Insulin Glargine (LANtus 100 UNITS/ML 10 ML VIAL) 35 units HS SQ 10/13/24 21:00 10/13/24 12:21 DC Insulin Glargine (LANtus 100 UNITS/ML 10 ML VIAL) 50 units HS SQ 10/13/24 21:00 11/12/24 20:59 10/18/24 22:19 50 UNITS Insulin Glargine (LANtus 100 UNITS/ML 10 ML VIAL) 100 units BID SQ 10/11/24 21:00 10/11/24 11:53 DC Insulin Human Regular (humuLIN R 100 UNIT/ML 3ML) INSULIN SLIDING SCAL... ACHS SQ 10/10/24 07:30 10/11/24 20:31 DC 10/11/24 18:21 14 UNIT Insulin Human Regular (humuLIN R 100 UNIT/ML 3ML) INSULIN SLIDING SCAL... ACHS SQ 10/11/24 21:00 11/10/24 20:59 10/18/24 22:18 6 UNIT Lactulose (Constulose 20gm/ 30ml Udcup) 20 gm BID PRN PO CONSTIPATION 10/11/24 12:00 11/10/24 11:59 Linezolid (Zyvox) 600 mg Q12H PO 10/16/24 12:00 10/26/24 11:59 10/19/24 12:50 600 MG Losartan Potassium (CozAAR 50 mg TAB) 50 mg DAILY PO 10/18/24 09:00 11/17/24 08:59 10/18/24 08:05 50 MG Magnesium Sulfate 50 ml @ 0 mls/hr PROTOCOL PRN IV low mag level 10/10/24 06:30 11/09/24 06:29 Methylprednisolone Sodium Succinate (Solu-medROL 125MG) 125 mg ONCE STAT IVP 10/13/24 00:23 10/13/24 00:29 DC 10/13/24 00:45 125 MG Miscellaneous Medication (Insulin Glargine,Hum.rec.anlog (Lantus Solostar)) 30 unit HS SQ 10/11/24 21:00 10/11/24 12:00 DC Piperacillin Sod/ Tazobactam Sod (Zosyn 3.375gm+NS 50ml) 3.375 gm Q8H IV 10/10/24 06:00 10/13/24 00:26 DC 10/12/24 22:05 3.375 GM Potassium Chloride 100 ml @ 100 mls/hr AD PRN IV POTASSIUM PROTOCOL 10/10/24 06:30 11/09/24 06:29 Potassium Chloride (K-Dur/Klor-Con 20meq) 20 meq AD PRN PO POTASSIUM PROTOCOL 10/10/24 06:30 11/09/24 06:29 Potassium Chloride (KCl 10% Elixir 20meq/15ml) 20 meq AD PRN PO POTASSIUM PROTOCOL 10/10/24 06:30 11/09/24 06:29 Sodium Chloride 1,000 ml @ 75 mls/hr [id number] IV 10/10/24 06:30 10/11/24 09:25 DC 10/10/24 07:30 75 MLS/HR Vancomycin HCl 250 ml @ 125 mls/hr Q24H IV 10/10/24 07:00 10/10/24 07:31 DC Vancomycin HCl 250 ml @ 125 mls/hr Q24H IV 10/11/24 08:00 10/14/24 11:53 DC 10/12/24 08:52 125 MLS/HR Vancomycin HCl (Vancomycin Protocol) 1 each AD IV 10/10/24 06:30 10/14/24 11:53 DC Vancomycin HCl (Vancomycin 1g/ 250ml Kit) 1 gm Q12H IV 10/10/24 06:00 10/10/24 06:23 DC DIAGNOSTICS / RADIOLOGY: [ ] ASSESSMENT: Sirs without organ malfunction POA bilateral lower ext. cellulitis POA failed outpatient treatment: POA intractable pain bilateral lower ext. POA nonhealing DM ulcer to left lower ext infected POA Suspecting Venous insufficiency POA bilateral lower +2 edema POA JARED ATN POA Uncontrolled DM POA Morbid obesity POA noncompliance POA 2D Echocardiogram LVEF is 60-65%. No regional wall motion abnormalities noted. Normal global strain of -20%. PLAN: admit: Medical surgical floor Discontinue doxycycline Initiated IV cefepime and linezolid as per Infectious Disease recommendations PICC line to facilitate administration of termite control servicer IV antibiotics [facility] IVF's Consultants: quality improvement specialist recommend hydrocortisone to rash. We will follow her recommendations on wound dressing. Wound cultures so far no growth. Blood cultures negative for two days. Pain management: [place] 5/325 mg one tab q4 hr PRN DM: Ac.hs monitoring with SSRI coverage and long acting: Lantus 30 unit sq bedtime resume 50 units every a.m.. goal to keep flood sugar: < 200 Lasix 20 mg po daily. Leg elevation at all time HTN: losartan 50 mg p.o. daily Echo to evaluated LV function avoid NSAIDS renal dose medications. Risk factors modification: weight management diet modified Labs: cbc, cmp and Mag+ Avoid NSAIDS strict I/O, PRN: MEDICATIONS Robitussin 15 ml po every 6 hrs for cough Tylenol 650 mg po every 4 hrs for fever zofran 4 mg IV every 6 hrs for n/v Hydralazine 5 mg IV every 4 hrs systolic pressure > 160 Supportive measures: DVT ppx, GI ppx replace electrolytes as needed basis. all questions answered ATTESTATION BY PHYSICIAN I have seen and examined the patient. I reviewed the documentation, medical decision making, and treatment plan as noted by the resident provider above. I agree with the findings and plan of care. Astrid Jamison MD, GERARDO MD Oct 19, 2024 14:24
--- NOTE | 2024-10-19 20:26 | PN ---
INFECTIOUS DISEASE PROGRESS NOTE Date of Service: Oct 19, 2024 SUBJECTIVE: This is a 54 male patient who was seen and examined at bedside in room 407. Patient is awake, alert and oriented x 3. Bilateral lower extremity ulcers continues improving. Will continue on cefepime IV and linezolid p.o. We will plan to discharge patient on Tuesday. We will continue to follow patient's care. PHYSICAL EXAM EYES: Anicteric. Pupils equal and reactive. HENT: No oral thrush seen, moist Oral mucosa. NECK: Supple, no JVD or thyromegaly. LUNGS: Good air entry. No rales, no rhonchi. CARDIOVASCULAR: S1, S2 regular. No murmur heard. ABDOMEN: Soft, non tender, bowel sounds present, no organomegaly. CENTRAL NERVOUS SYSTEM: Awake, alert, oriented x 3. SKIN: No rashes, no swelling. LYMPHATICS: No peripheral lymphadenopathy. MUSCULOSKELETAL: No joint swelling, erythema or tenderness. EXTREMITIES: No cyanosis or clubbing. Bilateral lower extremities ulcers with cellulitis. BACK: No deformity, no pressure ulcer. GENITOURINARY: No dysuria or hematuria. Vital Sign (Last 12 Hours) 10/19/24 10/19/24 12:00 16:00 Temp 97.5 98.1 Pulse 74 73 Resp 15 15 B/P (MAP) 128/62 139/77 Pulse Ox 98 97 O2 Delivery Room Air Room Air O2 Flow Rate 0.0 0.0 LABS: Laboratory: Test 10/19/24 19:23 10/19/24 05:23 Range/Units Whole Blood Glucose 263 H 70-110 MG/DL White Blood Count 14.8 H 4.8-10.8 K/uL Red Blood Count 4.80 4.50-6.20 MIL/uL Hemoglobin 13.4 L 14.0-18.0 g/dL Hematocrit 41.3 L 42-54 % Mean Corpuscular Volume 86.0 79-99 fL Mean Corpuscular Hemoglobin 27.9 27.0-33.0 pg Mean Corpuscular Hemoglobin Concent 32.4 32.0-36.0 g/dL Red Cell Distribution Width 12.8 11.0-15.5 % Platelet Count 243 130-400 K/uL Mean Platelet Volume 8.5 7.5-10.5 fL Immature Granulocyte % (Auto) 0.9 0-1 % Neutrophils (%) (Auto) 67.7 40.0-77.0 % Lymphocytes (%) (Auto) 18.8 L 21.0-51.0 % Monocytes (%) (Auto) 8.6 3.0-13.0 % Eosinophils (%) (Auto) 3.1 0.0-8.0 % Basophils (%) (Auto) 0.9 0.0-5.0 % Neutrophils # (Auto) 10.0 H 1.8-7.7 K/uL Lymphocytes # (Auto) 2.8 1.0-4.8 K/uL Monocytes # (Auto) 1.3 H 0.1-1.0 K/uL Eosinophils # (Auto) 0.45 0.00-0.70 K/uL Basophils # (Auto) 0.13 0.00-0.20 K/uL Absolute Immature Granulocyte (auto 0.14 0-1 K/uL Nucleated Red Blood Cells 0.0 0.0-0.19 % Sodium Level 138 136-145 mmol/L Potassium Level 3.8 3.5-5.1 mmol/L Chloride Level 101 101-111 mmol/L Carbon Dioxide Level 32 21-32 mmol/L Blood Urea Nitrogen 21 H 7-18 mg/dL Creatinine 1.5 H 0.5-1.3 mg/dL Glomerular Filtration Rate Calc 55 >90 mL/min Random Glucose 125 H 70-105 mg/dL Total Calcium 8.5 8.5-10.1 mg/dL Total Bilirubin 0.4 0.2-1.0 mg/dL Aspartate Amino Transf (AST/SGOT) 25 10-37 U/L Alanine Aminotransferase (ALT/SGPT) 38 12-78 U/L Alkaline Phosphatase 81 50-136 U/L Total Protein 6.7 6.0-8.3 g/dL Albumin 2.7 L 3.5-5.0 g/dL ASSESSMENT: Bilateral lower extremity ulcers with coagulase-negative Staphylococcus infection.. Bilateral lower extremity cellulitis. Leukocytosis. Diabetes mellitus. Acute renal failure. Hypertension. PLAN: Continue cefepime IV. Continue linezolid p.o. Continue GI prophylaxis. Continue wound care. Avoid nephrotoxic medications. Continue monitoring glucose levels. Discharge planning on Tuesday if stable. This case was reviewed and discussed with my supervising physician and the above assessment and plan was formulated and agreed upon. ATTESTATION BY PHYSICIAN I have seen and examined the patient. I reviewed the documentation, medical decision making, and treatment plan as noted by the mid-level provider above. I agree with the findings and plan of care. ALEKSANDR MILLAN MD, [facility] Oct 19, 2024 20:26
[2024-10-20] VITALS (7 sets, daily range): BP systolic 112–164; BP diastolic 63–94; PULSE 73–86; RESP 18–20; TEMP 97.2–98.1; O2SAT 95
[2024-10-20 05:10] LABS: BASOPHILS # (AUTO) 0.09 K/uL (0.00-0.20); BASOPHILS % (AUTO) 0.7 % (0.0-5.0); EOSINOPHILS # (AUTO) 0.37 K/uL (0.00-0.70); HEMATOCRIT 41.7 % (42-54); IMMATURE GRANULOCYTE ABSOLUTE 0.09 K/uL (0-1); LYMPHOCYTES # (AUTO) 2.6 K/uL (1.0-4.8); LYMPHOCYTES % (AUTO) 20.8 % (21.0-51.0); MEAN CORPUSCULAR HEMOGLOBIN 27.9 pg (27.0-33.0); MEAN CORPUSCULAR HGB CONC 31.9 g/dL (32.0-36.0); MEAN CORPUSCULAR VOLUME 87.6 fL (79-99); MONOCYTES # (AUTO) 1.2 K/uL (0.1-1.0); MONOCYTES % (AUTO) 9.8 % (3.0-13.0); NEUTROPHILS # (AUTO) 8.1 K/uL (1.8-7.7); PLATELET COUNT (AUTO) 237 K/uL (130-400); RED BLOOD CELL COUNT(AUTO) 4.76 MIL/uL (4.50-6.20); RED CELL DISTRIBUTION WIDTH 12.9 % (11.0-15.5); WHITE BLOOD COUNT (AUTO) 12.5 K/uL (4.8-10.8)
[2024-10-20 05:30] LABS: ALBUMIN 2.5 g/dL (3.5-5.0); BILIRUBIN,TOTAL 0.2 mg/dL (0.2-1.0); CREATININE 1.4 mg/dL (0.5-1.3); POTASSIUM 4.2 mmol/L (3.5-5.1); TOTAL PROTEIN, SERUM 6.3 g/dL (6.0-8.3)
--- NOTE | 2024-10-20 13:43 | PN ---
[facility] PROGRESS NOTE Date of Service: Oct 20, 2024 Time of Service: 13:29 SUBJECTIVE: admission date: 10/10/24 PCP: Ada Graves chief complaint: bilateral lower ext pain, redness, subjective Fevers This is a 54-year-old with a significant medical history of diabetes, hypertension and morbid obesity presents in ER with chief complaints of lower extremity pain and open nonhealing ulcers. Onset: ulcers for one month; report was seen in ED a month ago and was sent with oral antibiotics severity severe, aggravating factors: Pain aggravated by standing alleviating factors: None Associated symptoms: subjective Fever and Chills. patient recently went to [facility] with his PCP and was prescribed oral antibiotics he reports ulcers getting worse and decided to come to ED for further evaluation and treatment 10/11/24 The patient seen and examined : reviewed chart: the patient developed a rash to bilateral forearms: itching reported anti histamine was given x1 dose. environmental services specialist on board. Patient's blood sugars are elevated patient is on home regimen Lantus 100 unit SQ BID will resumed; He is currently on sliding scale we will start him on t.i.d. a.c. regular insulin 5 units discussed that his A1c was 11.8 goal to keep his blood sugar below < 200. 10/12/24 patient was seen earlier in examined reviewed case discussed with attending. Review labs blood sugars are much controlled now. Creatinine improving. Edematous to lower extremity improving as well with diuretics. Encourage patient to ambulate in room keep lower extremities elevated while sitting in chair. Denied chest pain or shortness of breath 10/13/24 patient is seen and examined. Patient reports no apparently he has been refusing vancomycin. Therefore, we will start him on doxycycline 100 p.o. patient continues with local wound care wound cultures negative. Patient continues with elevated blood sugars; review home medication patient's Lantus in the morning is 50 units at bedtime 30 therefore we will resume a.m.. 10/14/24 patient is seen and examined earlier reviewed chart. patient continues with edematous to lower extremity; Lasix were changed to p.o. yesterday. We will get a 2D echo. The patient reports his PCP: DR Star mariano i instructed the patient the importance to be complaince with medications and with follow up appointment to [facility] DM uncontrolled with insulin regiment; and CRF. Patient verbalized understanding. We will wait for 2D echo 10/15/24 the patient was seen this morning at bedside and is alert and oriented to person, place, and time. Vital signs are stable. Morning glucose level was 78, showing significant improvement compared to prior days. Laboratory results are as follows: WBC 13.2, hemoglobin 14.7, platelets 262, sodium 140, potassium, cr eatinine 1.4, GFR 60. The patient remains on doxycycline. Vancomycin was discontinued due to a reported allergy. And consultation with Infectious Disease has been placed to determine the most appropriate antibiotic regimen. Blood culture are still pending, with no bacterial growth reported to date. Echocardiogram results to rule out congestive hear failure revealed a left vent ricular ejection fraction of 60-65 %, with a normal global strain of -20%. The patient will remain under observation with continued monitoring of glucose levels and white blood cell count. Recommendation from the Infectious Disease consultation are pending. 10/16/24 the patient was seen at the bedside and is alert and oriented to person, place, and time. Vital signs are stable. Laboratory results: Sodium 141, potassium 4.3, creatinine 1.4, GFR 112, WBC 14previously 13.2, indicating an upward trend, glucose 112 slightly stability. The Infectious Disease team evaluated the patient and recommended discontinue doxycycline. The patient was started on cefepime and linezolid, and a PICC line was ordered to initiate IV antibiotic therapy. The patient will remain under observation, and care we will proceed per Infectious Disease recommendations. 10/17/24 the patient was visited this morning at the bedside. Was oriented to person, place, and time. His vital signs stable with a slightly elevated blood pressure of 148/77. Yesterday, the patient presented with mild cough and nasal congestion, for which treatment with [id number] mL every 6 hours as needed was initiated. Today's laboratory results are as follows: WBC 13.3 Previously 14, hemoglobin 13.5, platelets 245, potassium 3.8, creatinine 1.4, GFR 60, random glucose 101. PICC line placement is still pending, with plans to place it today. Additionally, losartan 50 mg daily will be initiated to help lower the blood pressure to normal levels. 10/18/24 the patient was evaluated at the bedside this morning and reports feeling well, without pain, cough, or other complaints. Vital signs are stable. Patient has been afebrile. Wound care has been performed on ulcers present legs. Laboratory results: WBC 14.9 previously 13.3, hemoglobin 14.1 Previously 13.5, platelet 297, sodium 139, potassium 3.9, creatinine 1.3. Patient continue treatment with cefepime and linezolid. Awaiting placement of a PICC line. Losartan 50 mg daily initiated today for blood pressure control. We are closely monitoring the patient and adhering to the recommendation from the Infectious Disease team. 10/19/24 The patient was evaluated this morning at the bedside. The patient reports feeling significantly better, with a marked decrease in coughing and no pain. Wound care has been provided for ulcers on both legs. vital signs are stable, with normal blood pressure. The patient remains afebrile. WBC 14.8 Previously 14.9, hemoglobin 13.4 previously 14.1 , platelets 243 previously 297, sodium 138, potassium 3.8 , creatinine 1.5 Previously 1.3 GFR 55 previously 66. PICC line was placed last night. The patient continued treatment with cefepime and linezolid. awaiting recommendation for Infectious Disease. 10/20/24 the patient was seen this morning at the bedside. The patient is alert, oriented to person, place, and time and reports feeling well. Vital signs are stable, with a blood pressure of 115/68 mmHg. Blood pressure we will continue to be monitored, and adjustments will be made as needed based on trends. Glucose levels have also stabilized, and monitoring we will continue. The patient remains on cefepime IV and linezolid p.o. for the treatment of cellulitis and ulcers on both legs, which have shown improvement during the hospital stay. Laboratory results indicate a positive response to treatment, with a decrease in WBC from 14.8-12.5. Additional labs are as follows hemoglobin 13.3, platelet 237, sodium 141, potassium 4.2, creatinine 1.4, GFR 60. Patient will remain under observation, with plans for discharge on Tuesday if the current progress continues. REVIEW OF SYSTEMS CONSTITUTIONAL: Denies fevers, chills, or night sweats. No unintentional weight loss reported. NEUROLOGICAL: Denies headache, amaurosis fugax, motor weakness, sensory deficit, vertigo/spinning sensation, gait abnormalities, or tremors. ENT: No hearing loss, otalgia, otorrhea, rhinitis, rhinorrhea, hoarseness, or sore throat. CARDIOVASCULAR: Denies any exertional angina, dyspnea on exertion, orthopnea, paroxysmal nocturnal dyspnea, palpitations, life-threatening arrhythmias, claudication. PULMONARY: Denies any shortness of breath, cough, phlegm/sputum, hemoptysis, pleuritic chest pain. SLEEP: Denies morning headaches, daytime somnolence or napping. Denies difficulty falling asleep, staying asleep, waking from sleep. Denies knowledge of snoring. GASTROINTESTINAL: Denies any type of dysphagia to either liquids or solids. Denies nausea, vomiting, pyrosis, early satiety, abdominal pain, diarrhea, constipation, or changes in stool consistency or caliber. Denies coffee-ground emesis, hematemesis, hematochezia, or melanotic stools. GENITOURINARY: Denies frequency, urgency, nocturia, hematuria or incontinence (Storage/Irritative symptoms.) Low urinary stream, straining to void, urinary intermittency or hesitancy, splitting of the voiding stream, terminal dribbling. ENDOCRINOLOGIC: Denies polyuria, polydipsia, polyphagia or heat/cold intolerances. HEMATOLOGIC: Denies thrombophilia/previous clots, or coagulopathy/bleeding disorders. ONCOLOGIC: Denies personal history of malignancy. DERMATOLOGIC: Denies rashes or pruritus. PSYCHIATRIC: Denies any suicidal or homicidal ideation. Denies hallucinations. PHYSICAL EXAM GENERAL APPEARANCE: The patient is awake, alert, and oriented, in no acute cardiopulmonary distress. NEUROLOGICAL: Cranial nerves II-XII grossly intact. Motor is 5/5 in bilateral upper and lower extremities proximal to distal. No sensory deficits. HEENT: Face is symmetric. Pupils are equal and reactive. Extraocular movements are intact. NECK: Supple. No JVD. No thyromegaly. No submental, submandibular, pre-/p ostauricular, occipital or supraclavicular lymphadenopathy. CHEST: Normal chest expansion. No Telemetry. LUNGS: Absence of any rales, rhonchi or any wheezing. CARDIOVASCULAR: Regular. S1 and S2 normal. No appreciable rubs, murmurs or gallops. ABDOMEN: Soft, nontender, and nondistended. There is no rebound, voluntary guarding, or rigidity. : Deferred. No Sullivan. EXTREMITIES: Non-edematous and not cyanotic. No clubbing. Good capillary refill. SKIN: several wound to left leg: oozing. +1 edema bilateral lower ext. Vital Signs (last 8hr) Date Time Temp Pulse Resp B/P (MAP) Pulse Ox O2 Delivery O2 Flow Rate FiO2 10/20/24 12:00 97.9 86 18 164/94 95 Room Air 10/20/24 07:54 97.7 75 18 115/68 95 Room Air LABS: Laboratory: Test 10/20/24 11:28 10/20/24 04:46 Range/Units Whole Blood Glucose 242 #H 70-110 MG/DL White Blood Count 12.5 H 4.8-10.8 K/uL Red Blood Count 4.76 4.50-6.20 MIL/uL Hemoglobin 13.3 L 14.0-18.0 g/dL Hematocrit 41.7 L 42-54 % Mean Corpuscular Volume 87.6 79-99 fL Mean Corpuscular Hemoglobin 27.9 27.0-33.0 pg Mean Corpuscular Hemoglobin Concent 31.9 L 32.0-36.0 g/dL Red Cell Distribution Width 12.9 11.0-15.5 % Platelet Count 237 130-400 K/uL Mean Platelet Volume 8.6 7.5-10.5 fL Immature Granulocyte % (Auto) 0.7 0-1 % Neutrophils (%) (Auto) 65.0 40.0-77.0 % Lymphocytes (%) (Auto) 20.8 L 21.0-51.0 % Monocytes (%) (Auto) 9.8 3.0-13.0 % Eosinophils (%) (Auto) 3.0 0.0-8.0 % Basophils (%) (Auto) 0.7 0.0-5.0 % Neutrophils # (Auto) 8.1 H 1.8-7.7 K/uL Lymphocytes # (Auto) 2.6 1.0-4.8 K/uL Monocytes # (Auto) 1.2 H 0.1-1.0 K/uL Eosinophils # (Auto) 0.37 0.00-0.70 K/uL Basophils # (Auto) 0.09 0.00-0.20 K/uL Absolute Immature Granulocyte (auto 0.09 0-1 K/uL Nucleated Red Blood Cells 0.0 0.0-0.19 % Sodium Level 141 136-145 mmol/L Potassium Level 4.2 3.5-5.1 mmol/L Chloride Level 105 101-111 mmol/L Carbon Dioxide Level 31 21-32 mmol/L Blood Urea Nitrogen 24 H 7-18 mg/dL Creatinine 1.4 H 0.5-1.3 mg/dL Glomerular Filtration Rate Calc 60 >90 mL/min Random Glucose 99 70-105 mg/dL Total Calcium 8.3 L 8.5-10.1 mg/dL Total Bilirubin 0.2 # 0.2-1.0 mg/dL Aspartate Amino Transf (AST/SGOT) 28 10-37 U/L Alanine Aminotransferase (ALT/SGPT) 36 12-78 U/L Alkaline Phosphatase 78 50-136 U/L Total Protein 6.3 6.0-8.3 g/dL Albumin 2.5 L 3.5-5.0 g/dL Current Medications Medications (Trade) Dose Ordered Sig/Nico Route PRN Reason Start Time Stop Time Status Last Admin Dose Admin Acetaminophen (TYLenol 325MG TAB) 650 mg Q4H PRN PO TEMPERATURE GREATER THAN 101.5 10/10/24 06:30 11/09/24 06:29 10/18/24 05:38 650 MG Acetaminophen/ Hydrocodone Bitart (NORco 5/325MG) 1 tab Q4H PRN PO MODERATE PAIN (4-6) 10/10/24 06:30 10/15/24 06:29 DC 10/11/24 23:04 1 TAB Amlodipine Besylate (NorvASC 5MG TAB) 5 mg DAILY PO 10/10/24 09:00 10/19/24 09:40 DC 10/18/24 08:05 5 MG Cefepime HCl (MAXipime 1 GM vial) 1 gm Q12H IVPB 10/16/24 13:00 10/26/24 12:59 10/20/24 00:22 1 GM Cefepime HCl (MAXipime 1 GM vial) 1 gm Q8H IVPB 10/16/24 12:00 10/16/24 12:44 DC Diphenhydramine HCl (BENAdryl CAP) 25 mg Q8H PRN PO ITCHING 10/12/24 14:30 11/11/24 14:29 10/18/24 12:02 25 MG Doxycycline Hyclate (Doxycycline Hyclate) 100 mg BID PO 10/13/24 21:00 10/16/24 11:59 DC 10/16/24 08:44 100 MG Epinephrine HCl (ADRENaline PF 1MG AMP) 0.3 mg ONCE STAT SQ 10/13/24 00:23 10/13/24 00:31 DC 10/13/24 00:46 0.3 MG Famotidine (Pepcid 20mg Vial) 20 mg ONCE STAT IV 10/13/24 00:23 10/13/24 00:29 DC 10/13/24 00:45 20 MG Famotidine (Pepcid 20mg Tab) 20 mg DAILY PO 10/10/24 09:00 11/09/24 08:59 10/20/24 10:13 20 MG Furosemide (LASix 20MG TAB) 20 mg DAILY PO 10/14/24 09:00 11/13/24 08:59 10/20/24 10:14 20 MG Furosemide (LASix 20MG TAB) 20 mg Q12H PO 10/11/24 12:00 10/13/24 12:21 DC 10/13/24 12:06 20 MG Guaifenesin/ Dextromethorphan (RobiTUSSin DM 200/20MG 10ML) 5 ml Q6H PRN PO COUGH 10/16/24 17:00 10/16/24 16:58 DC Guaifenesin/ Dextromethorphan (RobiTUSSin DM 200/20MG 10ML) 15 ml Q6H PRN PO COUGH 10/16/24 17:00 11/15/24 16:59 10/16/24 23:45 15 ML Heparin Sodium (Porcine) (HEParin 5,000 UNIT VIAL) 5,000 unit Q12H SQ 10/10/24 10:00 11/09/24 09:59 10/20/24 10:17 5,000 UNIT Hydralazine HCl (APRESOLine 20MG INJ) 5 mg Q4H PRN IV ADMINISTER FOR SBP > 160 10/10/24 06:30 11/09/24 06:29 Hydrocortisone (corTRIsone 1% CREAM) 1 APPL BID TP 10/11/24 21:00 11/10/24 20:59 10/20/24 10:18 1 APPL Insulin Glargine (LANtus 100 UNITS/ML 10 ML VIAL) 30 units HS SQ 10/11/24 21:00 10/13/24 12:13 DC 10/12/24 21:00 30 UNITS Insulin Glargine (LANtus 100 UNITS/ML 10 ML VIAL) 35 units HS SQ 10/13/24 21:00 10/13/24 12:21 DC Insulin Glargine (LANtus 100 UNITS/ML 10 ML VIAL) 50 units HS SQ 10/13/24 21:00 11/12/24 20:59 10/19/24 21:25 50 UNITS Insulin Glargine (LANtus 100 UNITS/ML 10 ML VIAL) 100 units BID SQ 10/11/24 21:00 10/11/24 11:53 DC Insulin Human Regular (humuLIN R 100 UNIT/ML 3ML) INSULIN SLIDING SCAL... ACHS SQ 10/10/24 07:30 10/11/24 20:31 DC 10/11/24 18:21 14 UNIT Insulin Human Regular (humuLIN R 100 UNIT/ML 3ML) INSULIN SLIDING SCAL... ACHS SQ 10/11/24 21:00 11/10/24 20:59 10/19/24 21:24 12 UNIT Lactulose (Constulose 20gm/ 30ml Udcup) 20 gm BID PRN PO CONSTIPATION 10/11/24 12:00 11/10/24 11:59 Linezolid (Zyvox) 600 mg Q12H PO 10/16/24 12:00 10/26/24 11:59 10/20/24 00:22 600 MG Losartan Potassium (CozAAR 50 mg TAB) 50 mg DAILY PO 10/18/24 09:00 11/17/24 08:59 10/20/24 10:13 50 MG Magnesium Sulfate 50 ml @ 0 mls/hr PROTOCOL PRN IV low mag level 10/10/24 06:30 11/09/24 06:29 Methylprednisolone Sodium Succinate (Solu-medROL 125MG) 125 mg ONCE STAT IVP 10/13/24 00:23 10/13/24 00:29 DC 10/13/24 00:45 125 MG Miscellaneous Medication (Insulin Glargine,Hum.rec.anlog (Lantus Solostar)) 30 unit HS SQ 10/11/24 21:00 10/11/24 12:00 DC Piperacillin Sod/ Tazobactam Sod (Zosyn 3.375gm+NS 50ml) 3.375 gm Q8H IV 10/10/24 06:00 10/13/24 00:26 DC 10/12/24 22:05 3.375 GM Potassium Chloride 100 ml @ 100 mls/hr AD PRN IV POTASSIUM PROTOCOL 10/10/24 06:30 11/09/24 06:29 Potassium Chloride (K-Dur/Klor-Con 20meq) 20 meq AD PRN PO POTASSIUM PROTOCOL 10/10/24 06:30 11/09/24 06:29 Potassium Chloride (KCl 10% Elixir 20meq/15ml) 20 meq AD PRN PO POTASSIUM PROTOCOL 10/10/24 06:30 11/09/24 06:29 Sodium Chloride 1,000 ml @ 75 mls/hr [id number] IV 10/10/24 06:30 10/11/24 09:25 DC 10/10/24 07:30 75 MLS/HR Vancomycin HCl 250 ml @ 125 mls/hr Q24H IV 10/10/24 07:00 10/10/24 07:31 DC Vancomycin HCl 250 ml @ 125 mls/hr Q24H IV 10/11/24 08:00 10/14/24 11:53 DC 10/12/24 08:52 125 MLS/HR Vancomycin HCl (Vancomycin Protocol) 1 each AD IV 10/10/24 06:30 10/14/24 11:53 DC Vancomycin HCl (Vancomycin 1g/ 250ml Kit) 1 gm Q12H IV 10/10/24 06:00 10/10/24 06:23 DC DIAGNOSTICS / RADIOLOGY: [ ] ASSESSMENT: Sirs without organ malfunction POA bilateral lower ext. cellulitis POA failed outpatient treatment: POA intractable pain bilateral lower ext. POA nonhealing DM ulcer to left lower ext infected POA Suspecting Venous insufficiency POA bilateral lower +2 edema POA JARED ATN POA Uncontrolled DM POA Morbid obesity POA noncompliance POA 2D Echocardiogram LVEF is 60-65%. No regional wall motion abnormalities noted. Normal global strain of -20%. PLAN: admit: Medical surgical floor Discontinue doxycycline Initiated IV cefepime and linezolid as per Infectious Disease recommendations PICC line to facilitate administration of fpc IV antibiotics Heplock IVF's Consultants: medical transport specialist recommend hydrocortisone to rash. We will follow her recommendations on wound dressing. Wound cultures so far no growth. Blood cultures negative for two days. Pain management: [place] 5/325 mg one tab q4 hr PRN DM: Ac.hs monitoring with SSRI coverage and long acting: Lantus 30 unit sq bedtime resume 50 units every a.m.. goal to keep flood sugar: < 200 Lasix 20 mg po daily. Leg elevation at all time HTN: losartan 50 mg p.o. daily Echo to evaluated LV function avoid NSAIDS renal dose medications. Risk factors modification: weight management diet modified Labs: cbc, cmp and Mag+ Avoid NSAIDS strict I/O, PRN: MEDICATIONS Robitussin 15 ml po every 6 hrs for cough Tylenol 650 mg po every 4 hrs for fever zofran 4 mg IV every 6 hrs for n/v Hydralazine 5 mg IV every 4 hrs systolic pressure > 160 Supportive measures: DVT ppx, GI ppx replace electrolytes as needed basis. all questions answered ATTESTATION BY PHYSICIAN I have seen and examined the patient. I reviewed the documentation, medical decision making, and treatment plan as noted by the resident provider above. I agree with the findings and plan of care. Mario Jamison MD, GERARDO MD Oct 20, 2024 13:43
--- NOTE | 2024-10-20 17:48 | NUR ---
KRISS PLAN SPOKE TO DR. MILLAN. ASKED IF PATIENT WAS GOING TO NEED GOOD KEY. SAID STILL NOT SURE. ALSO REMINDED HIM THAT PATIENT IS [employer] EXC AND WILL LIKELY NEED PRE AUTH FROM PCP WHICH WE HAVE HAD PROBLEMS WITH IN THE PAST. SAID MIGHT LOOK AT PATIENT GOING ON PO ABX. Addendum: 10/20/24 at 1810 by LAURA BRANNON RN CM Amended: Links added.
[2024-10-21] VITALS (7 sets, daily range): BP systolic 120–148; BP diastolic 68–91; PULSE 73–78; RESP 18–20; TEMP 97.2–98.4; O2SAT 96
[2024-10-21 04:45] LABS: BASOPHILS # (AUTO) 0.09 K/uL (0.00-0.20); BASOPHILS % (AUTO) 0.8 % (0.0-5.0); EOSINOPHILS # (AUTO) 0.33 K/uL (0.00-0.70); EOSINOPHILS % (AUTO) 2.8 % (0.0-8.0); HEMATOCRIT 40.8 % (42-54); IMMATURE GRANULOCYTE ABSOLUTE 0.08 K/uL (0-1); LYMPHOCYTES # (AUTO) 2.2 K/uL (1.0-4.8); LYMPHOCYTES % (AUTO) 18.4 % (21.0-51.0); MEAN CORPUSCULAR HEMOGLOBIN 27.9 pg (27.0-33.0); MEAN CORPUSCULAR HGB CONC 32.1 g/dL (32.0-36.0); MEAN CORPUSCULAR VOLUME 86.8 fL (79-99); MONOCYTES # (AUTO) 1.2 K/uL (0.1-1.0); MONOCYTES % (AUTO) 10.3 % (3.0-13.0); NEUTROPHILS # (AUTO) 7.9 K/uL (1.8-7.7); PLATELET COUNT (AUTO) 231 K/uL (130-400); WHITE BLOOD COUNT (AUTO) 11.7 K/uL (4.8-10.8)
[2024-10-21 05:08] LABS: ALBUMIN 2.6 g/dL (3.5-5.0); BILIRUBIN,TOTAL 0.3 mg/dL (0.2-1.0); CREATININE 1.3 mg/dL (0.5-1.3); POTASSIUM 3.9 mmol/L (3.5-5.1); TOTAL PROTEIN, SERUM 6.6 g/dL (6.0-8.3)
--- NOTE | 2024-10-21 11:30 | NUR ---
Blood glucose 120. No insulin coverage needed at this time.
--- NOTE | 2024-10-21 16:04 | PN ---
[facility] PROGRESS NOTE Date of Service: Oct 21, 2024 Time of Service: 11:30 SUBJECTIVE: admission date: 10/10/24 PCP: Ada Graves chief complaint: bilateral lower ext pain, redness, subjective Fevers This is a 54-year-old with a significant medical history of diabetes, hypertension and morbid obesity presents in ER with chief complaints of lower extremity pain and open nonhealing ulcers. Onset: ulcers for one month; report was seen in ED a month ago and was sent with oral antibiotics severity severe, aggravating factors: Pain aggravated by standing alleviating factors: None Associated symptoms: subjective Fever and Chills. patient recently went to [facility] with his PCP and was prescribed oral antibiotics he reports ulcers getting worse and decided to come to ED for further evaluation and treatment 10/11/24 The patient seen and examined : reviewed chart: the patient developed a rash to bilateral forearms: itching reported anti histamine was given x1 dose. perinatal specialist on board. Patient's blood sugars are elevated patient is on home regimen Lantus 100 unit SQ BID will resumed; He is currently on sliding scale we will start him on t.i.d. a.c. regular insulin 5 units discussed that his A1c was 11.8 goal to keep his blood sugar below < 200. 10/12/24 patient was seen earlier in examined reviewed case discussed with attending. Review labs blood sugars are much controlled now. Creatinine improving. Edematous to lower extremity improving as well with diuretics. Encourage patient to ambulate in room keep lower extremities elevated while sitting in chair. Denied chest pain or shortness of breath 10/13/24 patient is seen and examined. Patient reports no apparently he has been refusing vancomycin. Therefore, we will start him on doxycycline 100 p.o. p atient continues with local wound care wound cultures negative. Patient continues with elevated blood sugars; review home medication patient's Lantus in the morning is 50 units at bedtime 30 therefore we will resume a.m.. 10/14/24 patient is seen and examined earlier reviewed chart. patient continues with edematous to lower extremity; Lasix were changed to p.o. yesterday. We w ill get a 2D echo. The patient reports his PCP: DR Star mariano i instructed the patient the importance to be complaince with medications and with follow up appointment to mange DM uncontrolled with insulin regiment; and CRF. Patient verbalized understanding. We will wait for 2D echo 10/15/24 the patient was seen this morning at bedside and is alert and oriented to person, place, and time. Vital signs are stable. Morning glucose level was 78, showing significant improvement compared to prior days. Laboratory results are as follows: WBC 13.2, hemoglobin 14.7, platelets 262, sodium 140, potassium, creatinine 1.4, GFR 60. The patient remains on doxycycline. Vancomycin was discontinued due to a reported allergy. And consultation with Infectious Disease has been placed to determine the most appropriate antibiotic regimen. Blood culture are still pending, with no bacterial growth reported to date. Echocardiogram results to rule out congestive hear failure revealed a left ventricular ejection fraction of 60-65 %, with a normal global strain of -20%. The patient will remain under observation with continued monitoring of glucose levels and white blood cell count. Recommendation from the Infectious Disease consultation are pending. 10/16/24 the patient was seen at the bedside and is alert and oriented to person, place, and time. Vital signs are stable. Laboratory results: Sodium 141, potassium 4.3, creatinine 1.4, GFR 112, WBC 14previously 13.2, indicating an upward trend, glucose 112 slightly stability. The Infectious Disease team evaluated the patient and recommended discontinue doxycycline. The patient was started on cefepime and linezolid, and a PICC line was ordered to initiate IV antibiotic therapy. The patient will remain under observation, and care we will proceed per Infectious Disease recommendations. 10/17/24 the patient was visited this morning at the bedside. Was oriented to person, place, and time. His vital signs stable with a slightly elevated blood pressure of 148/77. Yesterday, the patient presented with mild cough and nasal congestion, for which treatment with [id number] mL every 6 hours as needed was initiated. Today's laboratory results are as follows: WBC 13.3 Previously 14, hemoglobin 13.5, platelets 245, potassium 3.8, creatinine 1.4, GFR 60, random glucose 101. PICC line placement is still pending, with plans to place it today. Additionally, losartan 50 mg daily will be initiated to help lower the blood pressure to normal levels. 10/18/24 the patient was evaluated at the bedside this morning and reports feeling well, without pain, cough, or other complaints. Vital signs are stable. Cathi ent has been afebrile. Wound care has been performed on ulcers present legs. Laboratory results: WBC 14.9 previously 13.3, hemoglobin 14.1 Previously 13.5, platelet 297, sodium 139, potassium 3.9, creatinine 1.3. Patient continue treatment with cefepime and linezolid. Awaiting placement of a PICC line. Losartan 50 mg daily initiated today for blood pressure control. We are closely monitoring the patient and adhering to the recommendation from the Infectious Disease team. 10/19/24 The patient was evaluated this morning at the bedside. The patient reports feeling significantly better, with a marked decrease in coughing and no pain. Wound care has been provided for ulcers on both legs. vital signs are stable, with normal blood pressure. The patient remains afebrile. WBC 14.8 Previously 14.9, hemoglobin 13.4 previously 14.1 , platelets 243 previously 297, sodium 138, potassium 3.8 , creatinine 1.5 Previously 1.3 GFR 55 previously 66. PICC line was placed last night. The patient continued treatment with cefepime and linezolid. awaiting recommendation for Infectious Disease. 10/20/24 the patient was seen this morning at the bedside. The patient is alert, oriented to person, place, and time and reports feeling well. Vital signs are stable, with a blood pressure of 115/68 mmHg. Blood pressure we will continue to be monitored, and adjustments will be made as needed based on trends. Glucose levels have also stabilized, and monitoring we will continue. The patient remains on cefepime IV and linezolid p.o. for the treatment of cellulitis and ulcers on both legs, which have shown improvement during the hospital stay. Laboratory results indicate a positive response to treatment, with a decrease in WBC from 14.8-12.5. Additional labs are as follows hemo globin 13.3, platelet 237, sodium 141, potassium 4.2, creatinine 1.4, GFR 60. Patient will remain under observation, with plans for discharge on Tuesday if the current progress continues. 10/21/24: The patient was examined today in room 407 with his at bedside. He is sitting on the bed, denies any complaints or concerns. There were no acute overnight episodes noted, he is hemodynamically stable. Bilateral lower extremity cellulitis and ulcers have significantly improved. He has dressing present over bilateral lower limbs. Blood culture showed no growth after 3 days. Wound aerobic and anaerobic culture showed 1+ skin nidhi, coagulase negative Staph aureus. WBC improved to 11.1 as compared to 15.1 from admission. We will continue with cefepime and linezolid today per ID recommendations. The patient is possible discharge tomorrow and a PICC line was placed but can be sent home with oral antibiotics. He will require sleep study for obstructive sleep apnea evaluation as an outpatient post discharge. Further assessment and plan discussed below. REVIEW OF SYSTEMS CONSTITUTIONAL: Denies fevers, chills, or night sweats. No unintentional weight loss reported. NEUROLOGICAL: Denies headache, amaurosis fugax, motor weakness, sensory deficit, vertigo/spinning sensation, gait abnormalities, or tremors. ENT: No hearing loss, otalgia, otorrhea, rhinitis, rhinorrhea, hoarseness, or sore throat. CARDIOVASCULAR: Denies any exertional angina, dyspnea on exertion, orthopnea, paroxysmal nocturnal dyspnea, palpitations, life-threatening arrhythmias, claudication. PULMONARY: Denies any shortness of breath, cough, phlegm/sputum, hemoptysis, pleuritic chest pain. SLEEP: Denies morning headaches, daytime somnolence or napping. Denies difficu lty falling asleep, staying asleep, waking from sleep. Denies knowledge of snoring. GASTROINTESTINAL: Denies any type of dysphagia to either liquids or solids. Denies nausea, vomiting, pyrosis, early satiety, abdominal pain, diarrhea, constipation, or changes in stool consistency or caliber. Denies coffee-ground emesis, hematemesis, hematochezia, or melanotic stools. GENITOURINARY: Denies frequency, urgency, nocturia, hematuria or incontinence (Storage/Irritative symptoms.) Low urinary stream, straining to void, urinary intermittency or hesitancy, splitting of the voiding stream, terminal dribbling. ENDOCRINOLOGIC: Denies polyuria, polydipsia, polyphagia or heat/cold intolerances. HEMATOLOGIC: Denies thrombophilia/previous clots, or coagulopathy/bleeding disorders. ONCOLOGIC: Denies personal history of malignancy. DERMATOLOGIC: Denies rashes or pruritus. PSYCHIATRIC: Denies any suicidal or homicidal ideation. Denies hallucinations. PHYSICAL EXAM GENERAL APPEARANCE: The patient is awake, alert, and oriented, in no acute cardiopulmonary distress. NEUROLOGICAL: Cranial nerves II-XII grossly intact. Motor is 5/5 in bilateral upper and lower extremities proximal to distal. No sensory deficits. HEENT: Face is symmetric. Pupils are equal and reactive. Extraocular movements are intact. NECK: Supple. No JVD. No thyromegaly. No submental, submandibular, pre- /postauricular, occipital or supraclavicular lymphadenopathy. CHEST: Normal chest expansion. No Telemetry. LUNGS: Absence of any rales, rhonchi or any wheezing. CARDIOVASCULAR: Regular. S1 and S2 normal. No appreciable rubs, murmurs or ga llops. ABDOMEN: Soft, nontender, and nondistended. There is no rebound, voluntary guarding, or rigidity. : Deferred. No Sullivan. EXTREMITIES: Non-edematous and not cyanotic. No clubbing. Good capillary refill. SKIN: +1 edema bilateral lower ext, dressing present over b/l lower extremities. Vital Signs (last 8hr) Date Time Temp Pulse Resp B/P (MAP) Pulse Ox O2 Delivery O2 Flow Rate FiO2 10/21/24 11:43 98.1 75 20 148/91 100 Room Air 21 10/21/24 08:00 96 Room Air* 0 21 10/21/24 07:48 97.9 75 18 138/85 96 Room Air 21 LABS: Laboratory: Test 10/21/24 11:00 10/21/24 04:30 Range/Units Whole Blood Glucose 120 #H 70-110 MG/DL White Blood Count 11.7 H 4.8-10.8 K/uL Red Blood Count 4.70 4.50-6.20 MIL/uL Hemoglobin 13.1 L 14.0-18.0 g/dL Hematocrit 40.8 L 42-54 % Mean Corpuscular Volume 86.8 79-99 fL Mean Corpuscular Hemoglobin 27.9 27.0-33.0 pg Mean Corpuscular Hemoglobin Concent 32.1 32.0-36.0 g/dL Red Cell Distribution Width 13.0 11.0-15.5 % Platelet Count 231 130-400 K/uL Mean Platelet Volume 8.6 7.5-10.5 fL Immature Granulocyte % (Auto) 0.7 0-1 % Neutrophils (%) (Auto) 67.0 40.0-77.0 % Lymphocytes (%) (Auto) 18.4 L 21.0-51.0 % Monocytes (%) (Auto) 10.3 3.0-13.0 % Eosinophils (%) (Auto) 2.8 0.0-8.0 % Basophils (%) (Auto) 0.8 0.0-5.0 % Neutrophils # (Auto) 7.9 H 1.8-7.7 K/uL Lymphocytes # (Auto) 2.2 1.0-4.8 K/uL Monocytes # (Auto) 1.2 H 0.1-1.0 K/uL Eosinophils # (Auto) 0.33 0.00-0.70 K/uL Basophils # (Auto) 0.09 0.00-0.20 K/uL Absolute Immature Granulocyte (auto 0.08 0-1 K/uL Nucleated Red Blood Cells 0.0 0.0-0.19 % Sodium Level 141 136-145 mmol/L Potassium Level 3.9 3.5-5.1 mmol/L Chloride Level 106 101-111 mmol/L Carbon Dioxide Level 29 21-32 mmol/L Blood Urea Nitrogen 20 H 7-18 mg/dL Creatinine 1.3 0.5-1.3 mg/dL Glomerular Filtration Rate Calc 66 >90 mL/min Random Glucose 81 70-105 mg/dL Total Calcium 8.5 8.5-10.1 mg/dL Total Bilirubin 0.3 # 0.2-1.0 mg/dL Aspartate Amino Transf (AST/SGOT) 26 10-37 U/L Alanine Aminotransferase (ALT/SGPT) 37 12-78 U/L Alkaline Phosphatase 77 50-136 U/L Total Protein 6.6 6.0-8.3 g/dL Albumin 2.6 L 3.5-5.0 g/dL Current Medications Medications (Trade) Dose Ordered Sig/Nico Route PRN Reason Start Time Stop Time Status Last Admin Dose Admin Acetaminophen (TYLenol 325MG TAB) 650 mg Q4H PRN PO TEMPERATURE GREATER THAN 101.5 10/10/24 06:30 11/09/24 06:29 10/18/24 05:38 650 MG Acetaminophen/ Hydrocodone Bitart (NORco 5/325MG) 1 tab Q4H PRN PO MODERATE PAIN (4-6) 10/10/24 06:30 10/15/24 06:29 DC 10/11/24 23:04 1 TAB Amlodipine Besylate (NorvASC 5MG TAB) 5 mg DAILY PO 10/10/24 09:00 10/19/24 09:40 DC 10/18/24 08:05 5 MG Benzocaine (Cepacol Sore Throat Lozenge) 1 each Q4H PRN MM SORE THROAT 10/21/24 00:30 11/20/24 00:29 Cefepime HCl (MAXipime 1 GM vial) 1 gm Q12H IVPB 10/16/24 13:00 10/26/24 12:59 10/21/24 12:27 1 GM Cefepime HCl (MAXipime 1 GM vial) 1 gm Q8H IVPB 10/16/24 12:00 10/16/24 12:44 DC Diphenhydramine HCl (BENAdryl CAP) 25 mg Q8H PRN PO ITCHING 10/12/24 14:30 11/11/24 14:29 10/18/24 12:02 25 MG Doxycycline Hyclate (Doxycycline Hyclate) 100 mg BID PO 10/13/24 21:00 10/16/24 11:59 DC 10/16/24 08:44 100 MG Epinephrine HCl (ADRENaline PF 1MG AMP) 0.3 mg ONCE STAT SQ 10/13/24 00:23 10/13/24 00:31 DC 10/13/24 00:46 0.3 MG Famotidine (Pepcid 20mg Vial) 20 mg ONCE STAT IV 10/13/24 00:23 10/13/24 00:29 DC 10/13/24 00:45 20 MG Famotidine (Pepcid 20mg Tab) 20 mg DAILY PO 10/10/24 09:00 11/09/24 08:59 10/21/24 09:53 20 MG Furosemide (LASix 20MG TAB) 20 mg DAILY PO 10/14/24 09:00 11/13/24 08:59 10/21/24 09:53 20 MG Furosemide (LASix 20MG TAB) 20 mg Q12H PO 10/11/24 12:00 10/13/24 12:21 DC 10/13/24 12:06 20 MG Guaifenesin/ Dextromethorphan (RobiTUSSin DM 200/20MG 10ML) 5 ml Q6H PRN PO COUGH 10/16/24 17:00 10/16/24 16:58 DC Guaifenesin/ Dextromethorphan (RobiTUSSin DM 200/20MG 10ML) 15 ml Q6H PRN PO COUGH 10/16/24 17:00 11/15/24 16:59 10/21/24 12:32 15 ML Heparin Sodium (Porcine) (HEParin 5,000 UNIT VIAL) 5,000 unit Q12H SQ 10/10/24 10:00 11/09/24 09:59 10/21/24 09:58 5,000 UNIT Hydralazine HCl (APRESOLine 20MG INJ) 5 mg Q4H PRN IV ADMINISTER FOR SBP > 160 10/10/24 06:30 11/09/24 06:29 Hydrocortisone (corTRIsone 1% CREAM) 1 APPL BID TP 10/11/24 21:00 11/10/24 20:59 10/21/24 09:54 1 APPL Insulin Glargine (LANtus 100 UNITS/ML 10 ML VIAL) 30 units HS SQ 10/11/24 21:00 10/13/24 12:13 DC 10/12/24 21:00 30 UNITS Insulin Glargine (LANtus 100 UNITS/ML 10 ML VIAL) 35 units HS SQ 10/13/24 21:00 10/13/24 12:21 DC Insulin Glargine (LANtus 100 UNITS/ML 10 ML VIAL) 50 units HS SQ 10/13/24 21:00 11/12/24 20:59 10/20/24 21:16 50 UNITS Insulin Glargine (LANtus 100 UNITS/ML 10 ML VIAL) 100 units BID SQ 10/11/24 21:00 10/11/24 11:53 DC Insulin Human Regular (humuLIN R 100 UNIT/ML 3ML) INSULIN SLIDING SCAL... ACHS SQ 10/10/24 07:30 10/11/24 20:31 DC 10/11/24 18:21 14 UNIT Insulin Human Regular (humuLIN R 100 UNIT/ML 3ML) INSULIN SLIDING SCAL... ACHS SQ 10/11/24 21:00 11/10/24 20:59 10/20/24 21:17 8 UNIT Lactulose (Constulose 20gm/ 30ml Udcup) 20 gm BID PRN PO CONSTIPATION 10/11/24 12:00 11/10/24 11:59 Linezolid (Zyvox) 600 mg Q12H PO 10/16/24 12:00 10/26/24 11:59 10/21/24 12:27 600 MG Losartan Potassium (CozAAR 50 mg TAB) 50 mg DAILY PO 10/18/24 09:00 11/17/24 08:59 10/21/24 09:53 50 MG Magnesium Sulfate 50 ml @ 0 mls/hr PROTOCOL PRN IV low mag level 10/10/24 06:30 11/09/24 06:29 Methylprednisolone Sodium Succinate (Solu-medROL 125MG) 125 mg ONCE STAT IVP 10/13/24 00:23 10/13/24 00:29 DC 10/13/24 00:45 125 MG Miscellaneous Medication (Insulin Glargine,Hum.rec.anlog (Lantus Solostar)) 30 unit HS SQ 10/11/24 21:00 10/11/24 12:00 DC Piperacillin Sod/ Tazobactam Sod (Zosyn 3.375gm+NS 50ml) 3.375 gm Q8H IV 10/10/24 06:00 10/13/24 00:26 DC 10/12/24 22:05 3.375 GM Potassium Chloride 100 ml @ 100 mls/hr AD PRN IV POTASSIUM PROTOCOL 10/10/24 06:30 11/09/24 06:29 Potassium Chloride (K-Dur/Klor-Con 20meq) 20 meq AD PRN PO POTASSIUM PROTOCOL 10/10/24 06:30 11/09/24 06:29 Potassium Chloride (KCl 10% Elixir 20meq/15ml) 20 meq AD PRN PO POTASSIUM PROTOCOL 10/10/24 06:30 11/09/24 06:29 Sodium Chloride 1,000 ml @ 75 mls/hr [id number] IV 10/10/24 06:30 10/11/24 09:25 DC 10/10/24 07:30 75 MLS/HR Vancomycin HCl 250 ml @ 125 mls/hr Q24H IV 10/10/24 07:00 10/10/24 07:31 DC Vancomycin HCl 250 ml @ 125 mls/hr Q24H IV 10/11/24 08:00 10/14/24 11:53 DC 10/12/24 08:52 125 MLS/HR Vancomycin HCl (Vancomycin Protocol) 1 each AD IV 10/10/24 06:30 10/14/24 11:53 DC Vancomycin HCl (Vancomycin 1g/ 250ml Kit) 1 gm Q12H IV 10/10/24 06:00 10/10/24 06:23 DC DIAGNOSTICS / RADIOLOGY: [place] [address] [place] [address] IMAGING REPORT Signed PATIENT: SHAD OSORIO MR#: [id number] : 1970 SEX: M AGE: 54 LOCATION: 4BH ORDER 0 STATUS: ADM IN REPORT#: [id number] SERVICE 9 REASON: pain ORDERING PHYSICIAN: MESHA BROWER NP PROCEDURE: ART B LE - US ARTERIAL BILAT LOW EXT DUPL US ARTERIAL BILAT LOW EXT DUPL HISTORY: No additional history given. COMPARISON: None TECHNIQUE: Bilateral lower extremity arterial Doppler ultrasound study was performed. FINDINGS: Normal triphasic and biphasic arterial waveforms are noted in the common femoral, deep femoral, superficial femoral, popliteal, posterior tibial and dorsalis pedal arteries. On the right, the peak systolic velocity of the common femoral artery is 124 cm/s, the proximal femoral artery is 97 cm/s, the mid femoral artery is 88 cm/s, the distal femoral artery is 90 cm/s, the popliteal artery is 61 cm/s, the anterior tibial artery is 60 cm/s, the posterior tibial artery artery is 88 cm/s. On the left, the peak systolic velocity of the common femoral artery is 109 cm/s, the proximal femoral artery is 102 cm/s, the mid femoral artery is 64 cm/s, the distal femoral artery is 106 cm/s, the popliteal artery is 62 cm/s, the anterior tibial artery is 49 cm/s, the posterior tibial artery artery is 66 cm/s. IMPRESSION: 1. Mild diffuse atherosclerotic plaque with no identified hemodynamically significant stenoses. 2. Otherwise normal triphasic and biphasic arterial waveforms noted of the lower extremity artery system. DICTATED BY: ANDRZEJ SAMUEL DO DATE: 10/10/242109 ELECTRONICALLY SIGNED BY: ANDRZEJ SAMUEL DO DATE: 10/10/242113 [facility] [address] [address] IMAGING REPORT Signed PATIENT: SHAD OSORIO MR#: [id number] : 1970 SEX: M AGE: 54 LOCATION: EDHIP ORDER 4 STATUS: ADM IN REPORT#: [id number] SERVICE REASON: pain ORDERING PHYSICIAN: MESHA BROWER NP PROCEDURE: VENOUS JU - US VENOUS DOPPLER BILATERAL ULTRASOUND VENOUS DOPPLER, BILATERAL LOWER EXTREMITIES INDICATION: Bilateral lower extremity pain and swelling TECHNIQUE: Routine grayscale and color Doppler ultrasound of the bilateral lower extremity veins performed. COMPARISON: No priors. FINDINGS: The demonstrated veins of the bilateral lower extremity including the common femoral vein, femoral vein, and popliteal vein are associated with normal compressibility, augmentation, and flow. Normal respiratory variation was identified. No evidence for echogenic intraluminal thrombus formation. IMPRESSION: No sonographic evidence for deep venous thrombosis within the bilateral lower extremity veins. DICTATED BY: JOSUE HOOK MD DATE: 10/10/24815 ELECTRONICALLY SIGNED BY: JOSUE HOOK MD DATE: 10/10/24819 RUN DATE: 10/13/24 [facility] PAGE 3 RUN TIME: [id number] [address] [address] [employer] [facility] # [id number] Document Scanner: Heather Stone DO Specimen Report SPEC: [id number] PATIENT: SHAD OSORIO [id number] (Continued) Procedure Result Bobby Date-Time ANAEROBIC CULTURE Final (continued) 10/13/24 Test(s) performed by: [facility] [address] [place] [address] AEROBIC CULTURE Final 10/13/24 [facility] DESCRIPTION: REPORT 1: NO GROWTH AT 16-23 HOURS; STUDIES TO CONTINUE REPORT 2: NO GROWTH AT 36-47 HOURS; STUDIES TO CONTINUE REPORT 3: 1+ SKIN NIDHI COAGULASE NEGATIVE STAPHYLOCOCCUS ISOLATED FROM BROTH ONLY NO FURTHER WORK-UP DONE @ [facility] Test Performed at: [facility] [address] [place], [place] Medical Dialysis Equipment Technician: Jerson Romero D.O. ASSESSMENT: Sirs without organ malfunction POA bilateral lower ext. cellulitis POA failed outpatient treatment: POA intractable pain bilateral lower ext. POA nonhealing DM ulcer to left lower ext infected POA Suspecting Venous insufficiency POA bilateral lower +2 edema POA JARED ATN POA Uncontrolled DM POA Morbid obesity POA Possible obstructive sleep apnea noncompliance POA 2D Echocardiogram LVEF is 60-65%. No regional wall motion abnormalities noted. Normal global strain of -20%. PLAN: Patient remains admitted on the medical surgical floor Sirs without organ malfunction POA bilateral lower ext. cellulitis POA * Continue with IV cefepime and linezolid. * Blood culture showed no growth after 3 days. Wound aerobic and anaerobic culture showed no anaerobes, 1+ skin nidhi, coagulase negative Staph aureus. * Clean the wound with normal saline or wound cleanser and pat dry. * Avoid keeping the lower extremities in dependent position for prolonged period of time. * Follow Infectious Disease recommendations * Follow wound management recommendations Rash to upper and lower extremities: Local application of Hydrocortisone 1% Uncontrolled DM POA * Ac.hs monitoring with SSRI coverage and long acting: Lantus 30 unit sq bedtime resume 50 units every a.m.. * goal to keep flood sugar: < 200 Hypertension * Continue with Losartan 50 mg p.o. daily, Lasix 20 mg po daily. Leg elevation at all time * Avoid NSAIDS renal dose medications. * Avoid NSAIDS strict I/O Possible obstructive sleep apnea * Patient will require outpatient sleep study for possible undiagnosed obstructive sleep apnea. Order will be placed while planning for discharge. PRN MEDICATIONS Robitussin 15 ml po every 6 hrs for cough Tylenol 650 mg po every 4 hrs for fever zofran 4 mg IV every 6 hrs for n/v Hydralazine 5 mg IV every 4 hrs systolic pressure > 160 Supportive measures: * DVT prophylaxis heparin 5000 IU q.12h * GI prophylaxis famotidine 20 mg daily * replace electrolytes as needed basis. Morning Labs: CBC Patient continues to improve clinically, WBC trending down. He will be possibly discharged tomorrow with oral antibiotics per Infectious Disease recommen dations. The plan was briefly discussed with the patient. Further orders per hospitalization course. ATTESTATION BY PHYSICIAN I have seen and examined the patient. I reviewed the documentation, medical decision making, and treatment plan as noted by the resident provider above. I agree with the findings and plan of care. Mario Jamison MD, MANALI MD Oct 21, 2024 16:04
--- NOTE | 2024-10-21 16:30 | NUR ---
Blood glucose 162. Covered with 4 units of Humulin R subcutaneous; following insulin scale on patients e-dec.
--- NOTE | 2024-10-21 19:38 | PN ---
INFECTIOUS DISEASE FOLLOWUP NOTE DATE OF SERVICE: 10/20/2024 SUBJECTIVE: The patient is seen and examined at bedside today. The patient has no fever, no chills. No nausea or vomiting. Pain to both lower extremities are better. Tolerating antibiotic. No chest pain. No palpitation, orthopnea, dysuria or urinary frequency. No bleeding tendency. No slurred speech. PHYSICAL EXAMINATION: VITAL SIGNS: Temperature 98.6. EYES: No icterus. Pupils equal and reactive. HENT: No oral thrush seen. Moist oral mucosa. NECK: Supple. No JVD or thyromegaly. LUNGS: Good air entry. No rales. No rhonchi. CARDIOVASCULAR SYSTEM: S1, S2 regular. No murmur heard. ABDOMEN: Obese, soft, nontender. Bowel sounds present. CENTRAL NERVOUS SYSTEM: Awake, alert, oriented x 3. No focal deficits. SKIN: No rashes, no itchiness. LYMPHATIC: No peripheral lymphadenopathy. BACK: No deformity, no pressure ulcer. EXTREMITIES: Ulcer and cellulitis involving both lower extremities, covered with scab. No purulent drainage. ASSESSMENT: A 54-year-old male with multiple problems that include: * Bilateral leg ulcer. * Bilateral lower extremity cellulitis. * Polymicrobic infection. * Morbid obesity. * Leukocytosis. * Acute renal failure. PLAN: * Continue . * Continue cefepime. * Continue pain management. * Continue . * Continue DVT prophylaxis. * Continue antiemetic. TID: [id number] RECEIPT: [id number]
[2024-10-21] MEDS: BENZOCAINE/MENTH/CETYLPYRD CL 1 EACH LOZENGE MM PRN (22:58)
[2024-10-22] VITALS: BP 141/74; PULSE 77; RESP 20; TEMP 98.1
[2024-10-22 04:00] VITALS: BP 103/64; PULSE 75; RESP 20; TEMP 97.6
[2024-10-22 04:20] LABS: BASOPHILS # (AUTO) 0.08 K/uL (0.00-0.20); BASOPHILS % (AUTO) 0.7 % (0.0-5.0); EOSINOPHILS # (AUTO) 0.34 K/uL (0.00-0.70); EOSINOPHILS % (AUTO) 2.9 % (0.0-8.0); HEMATOCRIT 39.2 % (42-54); IMMATURE GRANULOCYTE ABSOLUTE 0.06 K/uL (0-1); LYMPHOCYTES # (AUTO) 2.8 K/uL (1.0-4.8); LYMPHOCYTES % (AUTO) 23.8 % (21.0-51.0); MEAN CORPUSCULAR HEMOGLOBIN 27.8 pg (27.0-33.0); MEAN CORPUSCULAR HGB CONC 32.1 g/dL (32.0-36.0); MEAN CORPUSCULAR VOLUME 86.3 fL (79-99); MONOCYTES # (AUTO) 1.1 K/uL (0.1-1.0); MONOCYTES % (AUTO) 9.2 % (3.0-13.0); NEUTROPHILS # (AUTO) 7.3 K/uL (1.8-7.7); NEUTROPHILS % (AUTO) 62.9 % (40.0-77.0); PLATELET COUNT (AUTO) 228 K/uL (130-400); RED BLOOD CELL COUNT(AUTO) 4.54 MIL/uL (4.50-6.20); RED CELL DISTRIBUTION WIDTH 12.9 % (11.0-15.5); WHITE BLOOD COUNT (AUTO) 11.6 K/uL (4.8-10.8)
[2024-10-22 07:52] VITALS: BP 152/75; PULSE 64; RESP 20; TEMP 97.5
[2024-10-22 10:00] VITALS: O2SAT 100
[2024-10-22 11:29] VITALS: BP 136/77; PULSE 67; RESP 16; TEMP 97.9
--- NOTE | 2024-10-22 11:33 | PN ---
INFECTIOUS DISEASE FOLLOWUP NOTE DATE OF SERVICE: 10/21/2024. SUBJECTIVE: The patient is seen and examined at bedside today. The patient has no fever, no chills. No nausea, no vomiting. Remained on antibiotic. Denied rashes or itching. No dysuria or hematuria. No swelling or oral thrush. PHYSICAL EXAMINATION: VITAL SIGNS: Blood pressure today 98.2. EYES: No icterus. Pupils equal and reactive. HENT: No oral thrush seen. Moist oral mucosa. NECK: Supple, no JVD, no thyromegaly. LUNGS: Good air entry. No rales, no rhonchi. CARDIOVASCULAR: S1, S2, regular. No murmur heard. ABDOMEN: Full, soft, nontender. Bowel sounds present. CENTRAL NERVOUS SYSTEM: Awake, alert, oriented x 3. No focal deficits. SKIN: No rashes, no itchiness. LYMPHATIC: No peripheral lymphadenopathy. BACK: No deformity, no pressure ulcer. EXTREMITIES: No ulcers. Cellulitis involving both legs, which is improving. ASSESSMENT: * A 54-year-old male with multiple problems * Bilateral lower extremity cellulitis. * Polymicrobic infection. * Morbid obesity. * Leukocytosis. * Renal failure. PLAN: * Continue DVT prophylaxis. * Continue cefepime. * Continue nutritional support. * TID: [id number] RECEIPT: [id number]
--- NOTE | 2024-10-22 15:00 | NUR ---
TOOK PICTURES OF WOUNDS ON LOWER EXTREMITIES. PERFORMED WOUND CARE DIRECTED BY PHYSICIAN. PATIENT TOLERATED PROCEDURE WELL. REMOVED PICC LINE PER HOSPITAL POLICIES. PATIENT TOLERATE WELL PROCEDURE. NO SIGNS OF SHORTNESS OF BREATH. EDUCATED PATIENT ON DAILY WOUND CARE. PATIENT AND FAMILY MEMBER VERBALIZED UNDERSTANDING. GAVE PATIENT SUPPLIES FOR WOUND CARE AT HOME.
--- NOTE | 2024-10-22 16:00 | NUR ---
PATIENT READY FOR DISCHARGE.
--- NOTE | 2024-10-22 16:11 | DS ---
Discharge Summary Hospital Course Summary: The patient is a 54-year-old patient with a significant medical history of uncontrolled diabetes, hypertension, and morbid obesity BMI 49.1kg/m2 presents to the emergency room at [facility] on 10/10 with the chief complaints of lower extremity pain and open non-healing ulcers. The ulcers have been present for one month. The patient had visited the emergency department a month ago and was prescribed oral antibiotics. His severity of the pain was severe, with aggravating factors including standing, and there are no alleviating factors. Associated symptoms include subjective fever and chills. The symptoms were not resolving and he then visited [facility] with their primary care physician, who also prescribed oral antibiotics. However, the patient reports that the ulcers have worsened, prompting the decision to seek further evaluation and treatment in the emergency department.On presentation to ED, vitals were stable. Labs showed WBC 15.1, otherwise nonsignificant. On examination, several wound to left leg, oozing, +1 edema bilateral lower extremity was noted. The patient received IV fluids, antibiotics and was admitted for the management of complicated b/l lower extremity cellulitis with failure of outpatient antibiotics. During the hospitalization course, the patient was closely monitored for ongoing cellulitis, evaluating clinical improvement, signs and symptoms, and daily lab results. The patient had extensive cellulitis affecting both lower limbs, more prominently on the left side. He was initially treated with Zosyn but developed an allergic reaction, including a rash on both forearms, which was treated with antihistamines. Following this reaction, an infectious disease specialist was consulted, and based on their recommendation, the patient was switched to cefepime and linezolid. Blood cultures showed no growth, while aerobic and anaerobic cultures revealed 1+ skin vivian, specifically coagulase-negative Staphylococcus. The patient's Hemoglobin A1C was 11.8, and he was started on a home insulin regimen along with an insulin sliding scale. At one point, his blood sugar exceeded 600, although it mostly ranged between 200-300. Radiological investigations, including chest X-ray and venous Doppler studies, returned negative results. An arterial Doppler indicated mild atherosclerotic di sease, and an echocardiogram showed a left ventricular ejection fraction (LVEF) of 60-65%. Due to the extensive nature of the cellulitis and the wound, the patient required intravenous antibiotics and close monitoring. Electrolytes were replaced according to protocol, and daily dressings were performed under aseptic precautions. By hospitalization day 12, the cellulitis was showing signs of improvement. The white blood cell count had trended down to 11.6. The patient reported no pain and was educated on how to manage the wound and cellulitis after discharge. He mentioned having difficulty bending down, but his is available to assist with dressing changes. Due to uncontrolled hyperglycemia, it is recommended that he have a discussion with his primary care provider or an customer support executive for the management of his type 2 diabetes mellitus. The patient is currently medically stable for discharge and can be followed up as an outpatient. Photo Print Specialist(s): Dr. Lennox Spring, Infectious disease Dr. Danilo Echevarria, Wound management Procedure(s): [place] [address] [place] [address] [id number] IMAGING REPORT Signed PATIENT: SHAD OSORIO MR#: [id number] : 1970 SEX: M AGE: 54 LOCATION: [facility] ORDER 7 STATUS: ADM IN REPORT#: [id number] SERVICE 6 REASON: swelling ORDERING PHYSICIAN: CLEMENTE TAMAYO DO PROCEDURE: CXR1VW - CHEST 1VW PORTABLE CHEST RADIOGRAPH INDICATION: swelling COMPARISON: None FINDINGS: Heart size is normal. The pulmonary vascularity and nicole appear normal. No abnormal pulmonary parenchymal opacity or consolidation identified. No significant pleural effusion noted. No pneumothorax detected. IMPRESSION: No radiographic evidence for any acute cardiopulmonary process. DICTATED BY: JOSUE HOOK MD DATE: 10/10/24818 ELECTRONICALLY SIGNED BY: JOSUE HOOK MD DATE: 10/10/24821 [facility] [address] [place] [address] [id number] IMAGING REPORT Signed PATIENT: SHAD OSORIO MR#: [id number] : 1970 SEX: M AGE: 54 LOCATION: [facility] ORDER 4 STATUS: ADM IN REPORT#: [id number] SERVICE 3 REASON: pain ORDERING PHYSICIAN: MESHA BROWER NP PROCEDURE: VENOUS JU - US VENOUS DOPPLER BILATERAL ULTRASOUND VENOUS DOPPLER, BILATERAL LOWER EXTREMITIES INDICATION: Bilateral lower extremity pain and swelling TECHNIQUE: Routine grayscale and color Doppler ultrasound of the bilateral lower extremity veins performed. COMPARISON: No priors. FINDINGS: The demonstrated veins of the bilateral lower extremity including the common femoral vein, femoral vein, and popliteal vein are associated with normal compressibility, augmentation, and flow. Normal respiratory variation was identified. No evidence for echogenic intraluminal thrombus formation. IMPRESSION: No sonographic evidence for deep venous thrombosis within the bilateral lower extremity veins. DICTATED BY: JOSUE HOOK MD DATE: 10/10/24815 ELECTRONICALLY SIGNED BY: JOSUE HOOK MD DATE: 10/10/[address] [address] IMAGING REPORT Signed PATIENT: SHAD OSORIO MR#: [id number] : 1970 SEX: M AGE: 54 LOCATION: [facility] ORDER 0 STATUS: ADM IN REPORT#: [id number] SERVICE 9 REASON: pain ORDERING PHYSICIAN: MESHA BROWER NP PROCEDURE: ART B LE - US ARTERIAL BILAT LOW EXT DUPL US ARTERIAL BILAT LOW EXT DUPL HISTORY: No additional history given. COMPARISON: None TECHNIQUE: Bilateral lower extremity arterial Doppler ultrasound study was performed. FINDINGS: Normal triphasic and biphasic arterial waveforms are noted in the common femoral, deep femoral, superficial femoral, popliteal, posterior tibial and dorsalis pedal arteries. On the right, the peak systolic velocity of the common femoral artery is 124 cm/s, the proximal femoral artery is 97 cm/s, the mid femoral artery is 88 cm/s, the distal femoral artery is 90 cm/s, the popliteal artery is 61 cm/s, the anterior tibial artery is 60 cm/s, the posterior tibial artery artery is 88 cm/s. On the left, the peak systolic velocity of the common femoral artery is 109 cm/s, the proximal femoral artery is 102 cm/s, the mid femoral artery is 64 cm/s, the distal femoral artery is 106 cm/s, the popliteal artery is 62 cm/s, the anterior tibial artery is 49 cm/s, the posterior tibial artery artery is 66 cm/s. IMPRESSION: 1. Mild diffuse atherosclerotic plaque with no identified hemodynamically significant stenoses. 2. Otherwise normal triphasic and biphasic arterial waveforms noted of the lower extremity artery system. DICTATED BY: ANDRZEJ SAMUEL DO DATE: 10/10/242109 ELECTRONICALLY SIGNED BY: ANDRZEJ SAMUEL DO DATE: 10/10/242113 [place] [address] [address] IMAGING REPORT Signed PATIENT: SHAD OSORIO MR#: [id number] : 1970 SEX: M AGE: 54 LOCATION: [facility] ORDER 06 STATUS: ADM IN REPORT#: [id number] SERVICE 05 REASON: suspecting chf ORDERING PHYSICIAN: MESHA BROWER NP PROCEDURE: ECHO CMP - ECHO 2-D COMPLETE APPROVED REPORT EXAM: Two-dimensional and M-mode echocardiogram with Doppler and color Doppler. INDICATION ICD: Suspect congestive heart failure 2D Dimensions RVDd 4.1 cm LVEF(%) 61.8 (>50%) LVED Vol(simp.) 120.0 mL IVSd 0.8 (0.7-1.1cm) FS(%) 33 % LVES Vol(simp.) 44.9 mL LVDd 5.1 (3.8-5.6cm) LVOT diam 2.2 (1.8-2.4cm) LVEF(%, simp.) 63 % LVDs 3.4 (2.5-4.0cm) LA ESV INDEX (4CH) 27.20 mL/m2 LA ESV INDEX (2CH) 25.20 mL/m2 LA ESV INDEX (BP) 24.20 mL/m2 Deformation Strain Apical 4 22.0 % Apical 2 21.0 % Apical 3 17.0 % Global Strain 20.0 % M-Mode Dimensions EPSS 0.9 cm LA (MM) 5.1 (1.6-4.0cm) Ao Root(MM) 2.7 (2.0-3.7cm) Aortic Valve AoV VTI 0.4 m Ao Mean GR 6.0 mmHg LVOT VTI 0.22 m CHARLES (VMAX) 2.4 cm2 CHARLES (VTI) 2.4 cm2 Mitral Valve MV E Vmax 83.4 cm/s DECEL Time 162 ms MV A Vmax 34.0 cm/s P 1/2 T 90 ms E/A ratio 2.5 MVA (PHT) 2.4 cm2 TDI E/E' Medial 9.4 E/E' Lateral 6.7 Medial E' Peak V 8.90 cm/s Lateral E' Peak V 12.40 cm/s Pulmonary Valve PV Vmax 1.3 m/s PV Peak GR 6.9 mmHg Tricuspid Valve TR Vmax 1.8 m/s RAP (EST) 8 mmHg RVSP 21.2 mmHg TR Peak GR 13.2 mmHg Left Ventricle The left ventricle is normal size. No regional wall motion abnormalities noted. Normal global strain of -20%. There is normal left ventricular wall thickness. LVEF is 60-65%. The left ventricular diastolic function is normal. Right Ventricle The right ventricle is normal size. The right ventricular systolic function is normal. Atria The left atrium size is normal. The right atrium size is normal. Aortic Valve The aortic valve is normal in structure. No aortic regurgitation is present. There is no aortic valvular stenosis. Mitral Valve The mitral valve is normal in structure. There is no mitral valve regurgitation noted. There is no mitral valve stenosis. Tricuspid Valve The tricuspid valve is normal in structure. There is trace of tricuspid valve regurgitation noted. Pulmonic Valve The pulmonary valve is normal in structure. There is no pulmonic valvular regurgitation. Great Vessels The aortic root is normal in size. The IVC is normal in size and collapses <50% with inspiration. Pericardium There is no pericardial effusion. Other Information Quality : Fair Conclusion LVEF is 60-65%. No regional wall motion abnormalities noted. Normal global strain of -20%. DICTATED BY: EUFEMIA DORSEY MD DATE: 10/14/24 1222 ELECTRONICALLY SIGNED BY: EUFEMIA DORSEY MD DATE: 10/14/24 7743 [place] [address] [address] IMAGING REPORT Signed PATIENT: SHAD OSORIO MR#: [id number] : 1970 SEX: M AGE: 54 LOCATION: [facility] ORDER 44 STATUS: ADM IN REPORT#: [id number] SERVICE 42 REASON: PICC LINE PLACEMENT VERIFICATION ORDERING PHYSICIAN: LENNOX MILLAN MD PROCEDURE: CXR1VW - CHEST 1VW CHEST 1VW HISTORY: PICC line placement COMPARISON: 10/10/2024 FINDINGS: A frontal projection of the chest was obtained. No acute pulmonary infiltrates is seen. The heart is borderline enlarged. Prominent interstitial markings are seen. PICC line is seen entering from the right with distal tip in the plane of the superior vena cava. No evidence of aortic calcification is seen. IMPRESSION: 1. No acute pulmonary infiltrate is seen. DICTATED BY: WILLIE OSEGUERA MD DATE: 10/18/242217 ELECTRONICALLY SIGNED BY: WILLIE OSEGUERA MD DATE: 10/18/242223 RUN DATE: 10/15/24 [facility] [address] 1 RUN TIME: 0[address] [address], [place] [address] Department of Laboratories CLIA # [id number] Electric Vehicle Electrician: Heather Stone DO Specimen Report PATIENT: SHAD OSORIO ACCT: [id number] LOC: [facility] U: [id number] AGE/SX: 54/M ROOM: [facility] RE10/10/[address]: MILLIE WATT MD : 1970 BED: 1 DIS: STATUS: ADM IN TLOC: SPEC: [id number] LATESHA: 10/10/24 STATUS: COMP REQ: [id number] RECD: 10/10/24 [facility] DR: CLEMENTE TAMAYO DO SOURCE: BLOOD ENTR: 10/10/[address] [facility] [address]: SHAWNA MORALES MD [facility]: ORDERED: BLOOD CULTURE COMMENTS: What is the Source? BLOOD Procedure Result Bobby Date-Time BLOOD CULT Final 10/15/24 NO GROWTH AFTER 5 DAYS RUN DATE: 10/13/24 [facility] [address] 1 RUN TIME: [address] [address], [place] [address] [employer] [facility] # [id number] Electric Vehicle Electrician: Heather Stone DO Specimen Report PATIENT: SHAD OSORIO ACCT: [id number] LOC: [facility] U: [id number] AGE/SX: 54/M ROOM: 407 RE10/10/[address]: MILLIE WATT MD : 1970 BED: 1 DIS: STATUS: ADM IN TLOC: SPEC: [id number] LATESHA: 10/10/24 STATUS: COMP REQ: [id number] RECD: 10/10/24 [facility] DR: MESHA BROWER NP SOURCE: LEG ENTR: 10/10/[address] [facility] [address]: SHAWNA MORALES MD SPDESC: OTHER MILLIE WATT MD, JOSE MARIANO MD ORDERED: NISHANT CULTURE, AEROBIC CULTURE COMMENTS: Has specimen been collected/obtained? Y Specimen Comment: ULCER TO LEG Has specimen been collected/obtained? Y Specimen Comment: ULCER TO LEG Has specimen been collected/obtained? Y Specimen Comment: ULCER TO LEG Has specimen been collected/obtained? Y Specimen Comment: ULCER TO LEG Has specimen been collected/obtained? Y Specimen Comment: ULCER TO LEG Has specimen been collected/obtained? Y Specimen Comment: ULCER TO LEG Has specimen been collected/obtained? Y Specimen Comment: ULCER TO LEG Has specimen been collected/obtained? Y Specimen Comment: ULCER TO LEG Has specimen been collected/obtained? Y Specimen Comment: ULCER TO LEG Has specimen been collected/obtained? Y Specimen Comment: ULCER TO LEG Has specimen been collected/obtained? Y Specimen Comment: ULCER TO LEG Has specimen been collected/obtained? Y Specimen Comment: ULCER TO LEG Has specimen been collected/obtained? Y Specimen Comment: ULCER TO LEG Has specimen been collected/obtained? Y Specimen Comment: ULCER TO LEG Has specimen been collected/obtained? Y Specimen Comment: ULCER TO LEG Procedure Result Bobby Date-Time ANAEROBIC CULTURE Final 10/13/24-904 MRL COLONY DESCRIPTION: REPORT 1: NO ANAEROBES AT 16-23 HOURS; STUDIES TO CONTINUE REPORT 2: NO ANAEROBES AT 36-47 HOURS; STUDIES TO CONTINUE REPORT 3: NO ANAEROBES AT 60 TO 71 HOURS RUN DATE: 10/13/24 [facility] [address] 2 RUN TIME: [address] [place] [address] Department of Interne[employer] [facility] # [id number] Electric Vehicle Electrician: Heather Stone, DO Specimen Report SPEC: [id number] PATIENT: SHAD OSORIO [id number] (Continued) Procedure Result Bobby Date-Time CONTINUED ON NEXT PAGE RUN DATE: 10/13/24 [facility] [address] 3 RUN TIME: [address] [address], [place] [address] Department of Interne[employer] [facility] # [id number] Electric Vehicle Electrician: Heather Stone DO Specimen Report SPEC: [id number] PATIENT: SHAD OSORIO [id number] (Continued) Procedure Result Bobby Date-Time ANAEROBIC CULTURE Final (continued) 10/13/24 Test(s) performed by: [facility] [address] [place] [address] AEROBIC CULTURE Final 10/13/24 [facility] COLONY DESCRIPTION: REPORT 1: NO GROWTH AT 16-23 HOURS; STUDIES TO CONTINUE REPORT 2: NO GROWTH AT 36-47 HOURS; STUDIES TO CONTINUE REPORT 3: 1+ SKIN VIVIAN COAGULASE NEGATIVE STAPHYLOCOCCUS ISOLATED FROM BROTH ONLY NO FURTHER WORK-UP DONE @ [facility] Test Performed at: [facility] [address] [place], [place] Medical Therapy Aide: Jerson Romero D.O. Assessment/Plan: ASSESSMENT: SIRS without organ malfunction, ruled out POA Bilateral lower ext. cellulitis, improving POA Failed outpatient treatment: POA intractable pain bilateral lower extremity, improving. POA nonhealing DM ulcer to left lower ext infected, improving POA Suspecting Venous insufficiency POA bilateral lower +2 edema POA JARED ATN POA Uncontrolled DM POA Morbid obesity POA Possible obstructive sleep apnea, requires outpatient sleep study noncompliance POA 2D Echocardiogram LVEF is 60-65%. No regional wall motion abnormalities noted. Normal global strain of -20%. Admission date: 10/10/2024 Discharge date: 10/22/2024 Disposition: Home Condition: Stable Activity: Ad Guerda Home medications: Continued Discharge instructions: Start taking Ceftin 500 mg PO BID for 10 days Start taking Doxycycline 100 mg PO BID for 10 days. Follow up appointment: Follow up With the primary care provider within2 weeks of the discharge Follow up with the customer support executive within2 weeks of the discharge for uncontrolled type 2 diabetes mellitus Follow up with the infectious disease provider within7 days of the discharge. We reinforced the importance of medication noncompliance and follow up appointment. The patient was advised to visit the nearest emergency department or call 911 should the symptoms gets worse or return. Discharge Instructions: Home Medications: Reported Medications Insulin Glargine,Hum.rec.anlog (Lantus Solostar) 100 Unit/Ml (3 Ml) Insuln.pen, 30 UNIT SQ HS for 30 Days, #15 ML 0 Refills 10/11/24 Losartan/Hydrochlorothiazide (Losartan-Hctz 50-12.5 mg Tab) 50 Mg-12.5 Mg Tablet, 1 TAB PO DAILY for 30 Days, #30 TAB 0 Refills 10/11/24 Insulin Glargine,Hum.rec.anlog (Lantus) 100 Unit/Ml Inj, 50 UNITS SQ AM, ML 10/11/24 Gabapentin (Gabapentin) 100 Mg Capsule, 1 CAP PO TID for 30 Days, #90 CAP 0 Refills 10/11/24 Discontinued Reported Medications Doxycycline Monohydrate (Doxycycline Monohydrate) 50 Mg Capsule, 1 CAP PO DAILY for 30 Days, #30 CAP 0 Refills 10/11/24 Continued Medications: Gabapentin (Gabapentin) 100 Mg Capsule 1 CAP PO TID for 30 Days, #90 CAP 0 Refills Insulin Glargine,Hum.rec.anlog (Lantus) 100 Unit/Ml Inj 50 UNITS SQ AM, ML Insulin Glargine,Hum.rec.anlog (Lantus Solostar) 100 Unit/Ml (3 Ml) Insuln.pen 30 UNIT SQ HS for 30 Days, #15 ML 0 Refills Losartan/Hydrochlorothiazide (Losartan-Hctz 50-12.5 mg Tab) 50 Mg-12.5 Mg Tablet 1 TAB PO DAILY for 30 Days, #30 TAB 0 Refills Discontinued Medications: Doxycycline Monohydrate (Doxycycline Monohydrate) 50 Mg Capsule 1 CAP PO DAILY for 30 Days, #30 CAP 0 Refills Time spent arranging discharge: 31-60 minutes ATTESTATION BY PHYSICIAN I have seen and examined the patient. I reviewed the documentation, medical decision making, and treatment plan as noted by the resident provider above. I agree with the findings and plan of care. Mario Jamison MD, MANALI MD Oct 22, 2024 16:11
--- NOTE | 2024-10-22 22:33 | PN ---
INFECTIOUS DISEASE PROGRESS NOTE Date of Service: Oct 22, 2024 SUBJECTIVE: This is a 54 male patient who was seen and examined at bedside in room 407. Patient is awake, alert and oriented x 3. WBC still slightly elevated at 11.6 but no fever, temperature is 97.9. From Infectious Disease standpoint patient can be discharged on Ceftin and doxycycline. PHYSICAL EXAM EYES: Anicteric. Pupils equal and reactive. HENT: No oral thrush seen, moist Oral mucosa. NECK: Supple, no JVD or thyromegaly. LUNGS: Good air entry. No rales, no rhonchi. CARDIOVASCULAR: S1, S2 regular. No murmur heard. ABDOMEN: Soft, non tender, bowel sounds present, no organomegaly. CENTRAL NERVOUS SYSTEM: Awake, alert, oriented x 3. SKIN: No rashes, no swelling. LYMPHATICS: No peripheral lymphadenopathy. MUSCULOSKELETAL: No joint swelling, erythema or tenderness. EXTREMITIES: No cyanosis or clubbing. Bilateral lower extremities ulcers with cellulitis. BACK: No deformity, no pressure ulcer. GENITOURINARY: No dysuria or hematuria. Vital Sign (Last 12 Hours) 10/22/24 11:29 Temp 97.9 Pulse 67 Resp 16 B/P (MAP) 136/77 Pulse Ox 99 O2 Delivery Room Air Intake & Output (last 24hrs) 10/21/24 10/21/24 10/22/24 15:00 23:00 07:00 Intake Total 250 ml 250 ml Balance 250 ml 250 ml LABS: Laboratory: Test 10/22/24 10:31 10/22/24 03:55 10/21/24 04:30 Range/Units Whole Blood Glucose 218 #H 70-110 MG/DL White Blood Count 11.6 H 4.8-10.8 K/uL Red Blood Count 4.54 4.50-6.20 MIL/uL Hemoglobin 12.6 L 14.0-18.0 g/dL Hematocrit 39.2 L 42-54 % Mean Corpuscular Volume 86.3 79-99 fL Mean Corpuscular Hemoglobin 27.8 27.0-33.0 pg Mean Corpuscular Hemoglobin Concent 32.1 32.0-36.0 g/dL Red Cell Distribution Width 12.9 11.0-15.5 % Platelet Count 228 130-400 K/uL Mean Platelet Volume 8.6 7.5-10.5 fL Immature Granulocyte % (Auto) 0.5 0-1 % Neutrophils (%) (Auto) 62.9 40.0-77.0 % Lymphocytes (%) (Auto) 23.8 21.0-51.0 % Monocytes (%) (Auto) 9.2 3.0-13.0 % Eosinophils (%) (Auto) 2.9 0.0-8.0 % Basophils (%) (Auto) 0.7 0.0-5.0 % Neutrophils # (Auto) 7.3 1.8-7.7 K/uL Lymphocytes # (Auto) 2.8 1.0-4.8 K/uL Monocytes # (Auto) 1.1 H 0.1-1.0 K/uL Eosinophils # (Auto) 0.34 0.00-0.70 K/uL Basophils # (Auto) 0.08 0.00-0.20 K/uL Absolute Immature Granulocyte (auto 0.06 0-1 K/uL Nucleated Red Blood Cells 0.0 0.0-0.19 % Sodium Level 141 136-145 mmol/L Potassium Level 3.9 3.5-5.1 mmol/L Chloride Level 106 101-111 mmol/L Carbon Dioxide Level 29 21-32 mmol/L Blood Urea Nitrogen 20 H 7-18 mg/dL Creatinine 1.3 0.5-1.3 mg/dL Glomerular Filtration Rate Calc 66 >90 mL/min Random Glucose 81 70-105 mg/dL Total Calcium 8.5 8.5-10.1 mg/dL Total Bilirubin 0.3 # 0.2-1.0 mg/dL Aspartate Amino Transf (AST/SGOT) 26 10-37 U/L Alanine Aminotransferase (ALT/SGPT) 37 12-78 U/L Alkaline Phosphatase 77 50-136 U/L Total Protein 6.6 6.0-8.3 g/dL Albumin 2.6 L 3.5-5.0 g/dL ASSESSMENT: Bilateral lower extremity ulcers with coagulase-negative Staphylococcus infection.. Bilateral lower extremity cellulitis. Leukocytosis. Diabetes mellitus. Acute renal failure. Hypertension. PLAN: From Infectious Disease standpoint patient can be discharged to home on Ceftin and doxycycline. This case was reviewed and discussed with my supervising physician and the above assessment and plan was formulated and agreed upon. ATTESTATION BY PHYSICIAN I have seen and examined the patient. I reviewed the documentation, medical decision making, and treatment plan as noted by the mid-level provider above. I agree with the findings and plan of care. ALEKSANDR MILLAN MD, [facility] Oct 22, 2024 22:33
== END 2024-10-22 14:58 | disposition home or self-care (01) | DRG 602 ==
LOC: EDH 03:32 → EDHIP 03:33 → 4BH 09:18
PROVIDERS: ADMIT Internal Medicine; ATTEND Internal Medicine
PROC: 02HV33Z Insertion of Infusion Device into Superior Vena Cava, Percutaneous Approach (ICD-10-PCS; principal; 2024-10-11)
DX: L03.115 Cellulitis of right lower limb (principal); N17.0 Acute kidney failure with tubular necrosis; L97.919 Non-pressure chronic ulcer of unspecified part of right lower leg with unspecified severity; L97.929 Non-pressure chronic ulcer of unspecified part of left lower leg with unspecified severity; Z68.42 Body mass index [BMI] 45.0-49.9, adult; E11.622 Type 2 diabetes mellitus with other skin ulcer; L03.116 Cellulitis of left lower limb; E11.22 Type 2 diabetes mellitus with diabetic chronic kidney disease; E66.01 Morbid (severe) obesity due to excess calories; I12.9 Hypertensive chronic kidney disease with stage 1 through stage 4 chronic kidney disease, or unspecified chronic kidney disease; N18.9 Chronic kidney disease, unspecified; E11.65 Type 2 diabetes mellitus with hyperglycemia; Z83.3 Family history of diabetes mellitus; Z82.49 Family history of ischemic heart disease and other diseases of the circulatory system; Z79.4 Long term (current) use of insulin; Z79.899 Other long term (current) drug therapy; Z79.1 Long term (current) use of non-steroidal anti-inflammatories (NSAID); Z88.8 Allergy status to other drugs, medicaments and biological substances; Z88.6 Allergy status to analgesic agent
CPT/HCPCS: 36415; 71045; 80048; 80053; 80202; 81001; 82306; 82550; 82607; 82947; 82948; 83036; 83735; 83880; 84484; 85025; 85610; 86140; 87040; 87070; 87076; 93306; 93356; 93925; 93970; 96375; 99285; A6248; C1751; C1894; G0378; J0171; J0360; J0692; J1644; J1815; J1885; J2543; J2919; J3490; Q0163; A6260; J3370

== ENCOUNTER 2025-07-26 04:00 | Emergency (ER) | payer BC ==
[~2025-07-26] VITALS: Ht 172.7 cm; Wt 136.1 kg
[~2025-07-26 04:00] MED LIST changes: -BENZ-39 PO; -ESOM20CA60 PO; -IBUP-2077 PO; +INSLAN SQ; +INSU3INS3 SQ; -LORA-868 PO; +LOSA1TAB37 PO; -SULF1TAB42 PO
--- NOTE | 2025-07-26 04:10 | NUR ---
PT CARE ASSUMED AT THIS TIME
--- NOTE | 2025-07-26 04:46 | ERN ---
General Chief Complaint: Multiple Complaints Stated Complaint: ABD PAIN, BILATERAL LEG PAIN Time Seen by MD: 04:04 Source: patient History of Present Illness Initial Comments 55-year-old male with diabetes, GERD and hypertension comes in with the abdom inal pain and bilateral leg pain. The abdominal pain starts in his right flank in migrates anteriorly to his umbilicus and then back around to his right flank again. No nausea vomiting or diarrhea. His bilateral leg pain is bilateral inner thighs and groin area. He can move his legs without trouble and there are no skin lesions contusions or swelling. No fevers or chills. No change in urination or bowel habits. During review of systems patient also mentions some fullness in his throat. Allergies: Coded Allergies: piperacillin (Unverified Allergy, Severe, HIVES, 10/14/24) tazobactam (Unverified Allergy, Severe, HIVES, 10/14/24) vancomycin (Unverified Allergy, Severe, 10/15/24) Home Meds Reported Medications Insulin Glargine,Hum.rec.anlog (Lantus Solostar) 100 Unit/Ml (3 Ml) Insuln.pen, 30 UNIT SQ HS for 30 Days, #15 ML 0 Refills 10/11/24 Losartan/Hydrochlorothiazide (Losartan-Hctz 50-12.5 mg Tab) 50 Mg-12.5 Mg Tablet, 1 TAB PO DAILY for 30 Days, #30 TAB 0 Refills 10/11/24 Insulin Glargine,Hum.rec.anlog (Lantus) 100 Unit/Ml Inj, 50 UNITS SQ AM, ML 10/11/24 Gabapentin (Gabapentin) 100 Mg Capsule, 1 CAP PO TID for 30 Days, #90 CAP 0 Refills 10/11/24 Past Medical History Past Medical History: Diabetes-Type II, Hypertension Past Surgical History: None Social History Social History: ETOH, Lives with family, Other Constitutional: (-) chills, (-) diaphoresis, (-) fever, (-) malaise, (-) weakness, (-) other documentation EENTM: (-) eye pain, (-) blurred vision, (-) tearing, (-) double vision, (-) ear pain, (-) ear discharge, (-) nose pain, (-) nose congestion, (-) throat pain, (-) Throat swelling, (-) mouth pain, (-) tooth pain, (-) mouth swelling, (-) other documentation Respiratory: (-) cough, (-) orthopnea, (-) short of breath, (-) stridor, (-) wheezing, (-) other documentation Cardiovascular: (-) chest pain, (-) edema, (-) palpitations, (-) syncope, (-) dyspnea on exertion, (-) other documentation Gastrointestinal/Abdominal: (+) abdominal pain; (-) nausea, (-) vomiting, (-) diarrhea, (-) abdominal distention, (-) constipation, (-) rectal bleeding, (-) dark stool/melena, (-) other documentation Genitourinary: (-) penile discharge, (-) dysuria, (-) frequency, (-) hematuria, (-) pain, (-) other documentation Physical Exam General Appearance: (+) no apparent distress Orientation: (+) alert, (+) oriented x 3 Head/Face Trauma: No Eye: bilateral eye normal inspection, bilateral eye PERRL, bilateral eye EOMI Ear, Nose, Throat: (+) hearing grossly normal, (+) normal ENT inspection, (+) moist mucous membraine Neck: (+) normal inspection, (+) supple, (+) full range of motion Respiratory: (+) chest non-tender, (+) lungs clear, (+) well ventilated Heart: (+) regular, (+) no gallop Vascular: (+) no edema, (+) normal peripheral pulse, (+) no JVD Gastrointestinal: (+) soft, (+) non-tender, (+) bowel sound present Back Comment Patient house tenderness in the right paraspinal muscles of his back Extremities: (+) normal range of motion, (+) non-tender, (+) normal inspection Results Laboratory and Microbiology Lab and Micro Result Laboratory Tests Test 07/26/25 05:00 07/26/25 05:57 White Blood Count 10.6 K/uL (4.8-10.8) Red Blood Count 4.75 MIL/uL (4.50-6.20) Hemoglobin 13.4 g/dL (14.0-18.0) L Hematocrit 40.9 % (42-54) L Mean Corpuscular Volume 86.1 fL (79-99) Mean Corpuscular Hemoglobin 28.2 pg (27.0-33.0) Mean Corpuscular Hemoglobin Concent 32.8 g/dL (32.0-36.0) Red Cell Distribution Width 13.0 % (11.0-15.5) Platelet Count 302 K/uL (130-400) Mean Platelet Volume 8.6 fL (7.5-10.5) Immature Granulocyte % (Auto) 0.5 % (0-1) Neutrophils (%) (Auto) 62.4 % (40.0-77.0) Lymphocytes (%) (Auto) 24.9 % (21.0-51.0) Monocytes (%) (Auto) 9.1 % (3.0-13.0) Eosinophils (%) (Auto) 2.2 % (0.0-8.0) Basophils (%) (Auto) 0.9 % (0.0-5.0) Neutrophils # (Auto) 6.6 K/uL (1.8-7.7) Lymphocytes # (Auto) 2.7 K/uL (1.0-4.8) Monocytes # (Auto) 1.0 K/uL (0.1-1.0) Eosinophils # (Auto) 0.23 K/uL (0.00-0.70) Basophils # (Auto) 0.10 K/uL (0.00-0.20) Absolute Immature Granulocyte (auto 0.05 K/uL (0-1) Nucleated Red Blood Cells 0.0 % (0.0-0.19) Sodium Level 138 mmol/L (136-145) Potassium Level 4.8 mmol/L (3.5-5.1) Chloride Level 101 mmol/L (101-111) Carbon Dioxide Level 29 mmol/L (21-32) Blood Urea Nitrogen 26 mg/dL (7-18) H Creatinine 1.4 mg/dL (0.5-1.3) H Glomerular Filtration Rate Calc 60 mL/min (>90) Random Glucose 193 mg/dL (70-105) H Total Calcium 8.7 mg/dL (8.5-10.1) Total Bilirubin 0.3 mg/dL (0.2-1.0) Aspartate Amino Transf (AST/SGOT) 29 U/L (10-37) Alanine Aminotransferase (ALT/SGPT) 28 U/L (12-78) Alkaline Phosphatase 79 U/L (50-136) Total Protein 7.2 g/dL (6.0-8.3) Albumin 3.0 g/dL (3.5-5.0) L Influenza Type A Antigen Negative For Type A Influenza Type B Antigen Negative For Type B SARS-CoV-2 Antigen (Rapid) PRESUMPTIVE NEGATIVE Group A Streptococcus Rapid negative (NEGATIVE) Urine Color LIGHT-YELLOW (YELLOW) Urine Appearance CLEAR (CLEAR) Urine pH 5.5 (5.0-8.0) Urine Specific Bend 1.014 (1.001-1.031) Urine Protein 50 mg/dL (NEGATIVE) H Urine Glucose (UA) NEGATIVE mg/dL (NEGATIVE) Urine Ketones NEGATIVE mg/dL (NEGATIVE) Urine Occult Blood MODERATE (NEGATIVE) H Urine Nitrate NEGATIVE (NEGATIVE) Urine Bilirubin NEGATIVE mg/dL (NEGATIVE) Urine Urobilinogen 0.2 mg/dL (0.2-1.0) Urine Leukocyte Esterase NEGATIVE Becka/uL Urine RBC 2-5 /HPF (0-1) H Urine WBC 0-1 /HPF (0-1) Urine Bacteria None /HPF (None Seen) MDM MDM: Differential diagnosis: Dehydration, muscle spasm, kidney stone, electrolyte abnormalities, Grossman Rationale: Tests considered and ordered secondary to shared decision making include: Previous outside records reviewed: Old ER visits. Risk of complication and/or morbidity or mortality of patient management: None Medications-Per medication reconciliation Need for hospitalization: Patient does not meet criteria for hospitalization. Need for emergency major/minor surgery: No There are no social concerns with this patient. Prescription drug management Prescriptions will include symptomatic care Patient's prior external medical records from other ER visits were reviewed by me as indicated. Prior testing and results from previous visits were reviewed. Prior tests were taken into account with medical decision making and resource utilization, independent historian/historians were used to obtain complete medical history. I independently interpreted the test that were performed, results were reviewed by me and considered findings on radiology if ordered. Patient's laboratory analysis shows hematuria. Chemistry panel shows elevated BUN and creatinine. Going back through patient's labs I noted a proximally one year ago his BUN and creatinine both jumped to the current baseline levels of a proximally 20 six and 1.4. I talked to the patient about this and he had no idea that his kidney function had changed or deteriorated in the last year. Patient's serologies are negative for influenza COVID or strep throat. CBC is normal except for a mild normocytic anemia. Patient handed off at shift change pending repeat evaluation CT scan was stable labs stable vital signs stable repeat abdominal exam negative stable for discharge and follow up with primary care doctor I have ordered a CT scan with a an without contrast to look for nephrolithiasis. ED Course Orders Procedure Category Date Status Time Urinalysis Profile LAB 07/26/25 Complete 04:14 Cbc With Differential LAB 07/26/25 Complete 04:14 Covid19 (Sars Antigen LAB 07/26/25 Complete Rapid) 04:14 Influenza Type A & B, LAB 07/26/25 Complete Rapid 04:14 Rapid (Group A Strep) LAB 07/26/25 Complete 04:14 Comprehensive LAB 07/26/25 Complete Metabolic Panel 04:14 Orphenadrine Citrate PHA 07/26/25 Complete (Norflex) 04:30 Lactated Ringers PHA 07/26/25 Complete 1000ml (Lactated 04:14 Lidocaine Hcl 2% PHA 07/26/25 Complete Viscous (Lidocaine Hcl 05:00 Mag/Alum/Simeth 30ml PHA 07/26/25 Complete (Maalox Plus 30ml) 05:00 Dicyclomine Hcl PHA 07/26/25 Complete (Bentyl 10mg/5ml 05:00 Iohexol (Omnipaque) PHA 07/26/25 Complete 07:13 Ct Abd/Pel Wo Con CT 07/26/25 Resulted Renal/Appy 07:33 Current Medications Medications (Trade) Dose Ordered Sig/Nico Route PRN Reason Start Time Stop Time Status Last Admin Dose Admin Al Hydroxide/Mg Hydroxide (MAALox PLUS 30ML) 30 ml ONCE ONCE PO 07/26/25 05:00 07/26/25 05:01 DC 07/26/25 05:21 Dicyclomine HCl (Bentyl 10mg/5ml Syrup) 10 mg ONCE ONCE PO 07/26/25 05:00 07/26/25 05:01 DC 07/26/25 05:21 Iohexol (Omnipaque) 35,000 mg STK-MED ONCE IV 07/26/25 07:13 07/26/25 07:13 DC Lactated Ringer's (Lactated Ringers 1000ml) 1,000 ml BOLUS STAT IV 07/26/25 04:14 07/26/25 04:22 DC 07/26/25 05:21 Lidocaine HCl (Lidocaine HCl 2% Viscous) 10 ml ONCE ONCE PO 07/26/25 05:00 07/26/25 05:01 DC 07/26/25 05:21 Orphenadrine Citrate (Norflex) 60 mg ONCE ONCE IVP 07/26/25 04:30 07/26/25 04:31 DC 07/26/25 05:21 Vital Signs Date Time Temp Pulse Resp B/P (MAP) Pulse Ox O2 Delivery O2 Flow Rate FiO2 07/26/25 08:37 98.8 72 16 127/75 97 Room Air* 0 07/26/25 05:55 75 15 136/76 98 Room Air* 0 21 07/26/25 04:30 98.8 73 15 131/77 96 Room Air* 0 21 07/26/25 04:03 98.8 74 20 160/77 97 Room Air DX & DISP Disposition: Discharge Departure Impression: Primary Impression: Hip pain Additional Impression: Inguinal hernia Condition: Stable Referrals: SHAWNA MORALES MD (PCP) LUKE DAVIS MD Jul 26, 2025 04:46 SPRING ORTIZ MD Jul 26, 2025 10:03
[2025-07-26 05:09] LABS: IMMATURE GRANULOCYTE ABSOLUTE 0.05 K/uL (0-1); NUCLEATED RED BLOOD CELLS 0.0 % (0.0-0.19); PLATELET COUNT (AUTO) 302 K/uL (130-400); RED BLOOD CELL COUNT(AUTO) 4.75 MIL/uL (4.50-6.20); RED CELL DISTRIBUTION WIDTH 13.0 % (11.0-15.5); WHITE BLOOD COUNT (AUTO) 10.6 K/uL (4.8-10.8)
[2025-07-26 05:19] LABS: RAPID GROUP A STREP negative (NEGATIVE)
[2025-07-26 05:20] LABS: CREATININE 1.4 mg/dL (0.5-1.3); GLOMERULAR FILTR. RATE CALC 60.0 mL/min (>90); GLUCOSE,RANDOM 193.0 mg/dL (70-105); SODIUM SERUM 138.0 mmol/L (136-145); UREA NITROGEN, BLOOD 26.0 mg/dL (7-18)
[2025-07-26] MEDS: LACTATED RINGERS 1000ML IV STA (05:21)
[2025-07-26] MEDS: ORPHENADRINE 60MG/2ML IVP ONE (05:21)
[2025-07-26] MEDS: LIDOCAINE HCL 2% VISCOUS 15 ML UDCUP PO ONE (05:21)
[2025-07-26] MEDS: DICYCLOMINE HCL 10 MG/5 ML ML PO ONE (05:21)
[2025-07-26] MEDS: MAG/ALUM/SIMETH 30 ML UDCUP PO ONE (05:21)
[2025-07-26 05:24] LABS: ASPARTATE AMINOTRANSFERASE 29.0 U/L (10-37); TOTAL PROTEIN, SERUM 7.2 g/dL (6.0-8.3)
[2025-07-26 05:29] LABS: COVID19 (SARS ANTIGEN RAPID) PRESUMPTIVE NEGATIVE (NEGATIVE); INFLUENZA TYPE A Negative For Type A (NEGATIVE); INFLUENZA TYPE B Negative For Type B (NEGATIVE)
[2025-07-26 06:15] LABS: APPEARANCE,URINE CLEAR (CLEAR); GLUCOSE, URINE (UA) NEGATIVE (NEGATIVE); LEUKOCYTE ESTERASE ,URINE NEGATIVE Leu/uL (NEGATIVE); NITRATE,URINE NEGATIVE (NEGATIVE); OCCULT BLOOD,URINE MODERATE (NEGATIVE)
[2025-07-26 06:31] LABS: ADD UA MICROSCOPIC YES
[2025-07-26] MEDS ORDERED: IOHEXOL 350 MG/ML 100ML INFUS..BTL IV ONE (07:13)
--- NOTE | 2025-07-26 07:26 | NUR ---
REPORT GIVEN TO GERALD FIGUEROA AT THIS TIME
--- NOTE | 2025-07-26 09:35 | HMCIMG ---
EXAM: CT Abdomen and Pelvis Without IV contrast. CLINICAL HISTORY: right flank pain. TECHNIQUE: Axial computed tomography images of the abdomen and pelvis without intravenous contrast. CONTRAST: None. COMPARISON: CT abdomen and pelvis images without contrast dated September,. FINDINGS: LUNG BASES: The lung bases appear clear. No pleural effusions are seen. LIVER: Unremarkable. GALLBLADDER AND BILE DUCTS: The gallbladder appears within normal limits. No radioopaque gallstones are seen. No biliary ductal dilatation is evident. PANCREAS: Unremarkable. SPLEEN: Unremarkable. ADRENAL GLANDS: Unremarkable. KIDNEYS, URETERS, AND BLADDER: The kidneys appear within normal limits. There is no hydronephrosis or hydroureter. No urinary calculi are seen. Partially distended urinary bladder with subtle anterior wall thickening of the urinary bladder without surrounding fat stranding consistent with detrusor hyperplasia. STOMACH AND BOWEL: Scattered diverticulosis of the descending and sigmoid colon without evidence of diverticulitis. Unremarkable appearance of the stomach and bowel. No evidence of bowel obstruction. No evidence suggesting enteritis or colitis. Mild hiatus hernia. APPENDIX: No evidence of acute appendicitis on CT examination. PERITONEUM: No free fluid. No free air. LYMPH NODES: No lymphadenopathy is evident. REPRODUCTIVE: Normal-sized prostate with median lobe hypertrophy projecting into the urinary bladder. Omental fat containing bilateral inguinal hernia. VASCULATURE: No evidence of abdominal aortic aneurysm. BONES: No aggressive appearing osseous lesion. No acute osseous pathology evident. Mild degenerative thoracolumbar spondylosis. Small fat-containing umbilical hernia with a defect measuring 2.1 cm. IMPRESSION: No acute intra-abdominal pathology. No fat stranding or collection. No renal or ureteric calculus or hydronephrosis. Scattered diverticulosis of the descending and sigmoid colon without evidence of diverticulitis. Partially distended urinary bladder with subtle anterior wall thickening of the urinary bladder without surrounding fat stranding consistent with detrusor hyperplasia. Normal-sized prostate with median lobe hypertrophy projecting into the bladder base. Omental fat containing bilateral inguinal hernia. Small fat fat-containing umbilical hernia. Mild hiatus hernia. /Mora
[2025-07-26 10:05] VITALS: BP 130/76; PULSE 70; RESP 16; TEMP 98.8; O2SAT 97
== END 2025-07-26 10:10 | disposition home or self-care (01) ==
LOC: EDH 04:00
DX: K40.20 Bilateral inguinal hernia, without obstruction or gangrene, not specified as recurrent (principal); M25.552 Pain in left hip; M25.551 Pain in right hip; E11.9 Type 2 diabetes mellitus without complications; I10 Essential (primary) hypertension; Z79.899 Other long term (current) drug therapy; Z88.1 Allergy status to other antibiotic agents; Z88.0 Allergy status to penicillin; Z20.822 Contact with and (suspected) exposure to COVID-19
CPT/HCPCS: 99284; 74176; 96374; 87426; 80053; 85025; 87880; 87804 ×2; 81001; 36415; J7120; Q9967; J2360